=== PATIENT | female | born 1965 | race Caucasian/White ===

== ENCOUNTER 2020-08-24 12:09 | Outpatient (REF) | payer OTHER, SELFPAY ==
[2020-08-24 14:40] LABS: Alanine Aminotransferase 10 U/L (0-31); Anion Gap 16 (12-20); Aspartate Amino Transferase 18 U/L (5-31); Blood Urea Nitrogen 16 mg/dL (9-16); Calcium 9.2 mg/dL (8.4-10.2); Carbon Dioxide 26 mmol/L (22-29); Chloride 106 mmol/L (96-108); Cholesterol 225 mg/dL; Estimated Glomerular Filt Rate > 60; Glucose Fasting 96 mg/dL (60-99); HDL Cholesterol 61 mg/dL; LDL Cholesterol Calculated 140 mg/dl; Potassium 5.1 mmol/L (3.3-5.1); Sodium 143 mmol/L (135-145); Triglycerides 124 mg/dL
[2020-08-24 15:04] LABS: Free T4 (Free Thyroxine) 0.83 ng/dL (0.71-1.85); Thyroid Stimulating Hormone 3.09 uIU/mL (0.32-4.0); Vitamin D 25-OH Total 33.9 ng/mL (>30)
[2020-08-25 05:22] LABS: Thyroid Peroxidase Antibodies 470 IU/mL (<9)
== END 2020-08-24 12:10 | disposition home or self-care (01) ==
LOC: HO.HMGCLDS 12:09
PROVIDERS: PCP Internal Medicine; Visit Provider Internal Medicine
DX: I10 Essential (primary) hypertension (principal); E55.9 Vitamin D deficiency, unspecified; E78.5 Hyperlipidemia, unspecified; E03.9 Hypothyroidism, unspecified
CPT/HCPCS: 36415; 80048; 80061; 82306; 84439; 84443; 84450; 84460; 86376

== ENCOUNTER 2021-02-07 13:04 | Outpatient (REF) | payer OTHER, SELFPAY ==
[2021-02-07 14:33] LABS: Cholesterol 193 mg/dL; HDL Cholesterol 57 mg/dL; LDL Cholesterol Calculated 109 mg/dl; Triglycerides 137 mg/dL
[2021-02-07 14:40] LABS: Free T4 (Free Thyroxine) 0.86 ng/dL (0.71-1.85); Thyroid Stimulating Hormone 2.79 uIU/mL (0.32-4.0)
== END 2021-02-07 13:05 | disposition home or self-care (01) ==
LOC: HO.HMGCLDS 13:04
PROVIDERS: PCP Internal Medicine; Visit Provider Internal Medicine
DX: E03.8 Other specified hypothyroidism (principal); E06.3 Autoimmune thyroiditis; E78.5 Hyperlipidemia, unspecified
CPT/HCPCS: 36415; 80061; 84439; 84443

== ENCOUNTER 2021-08-25 13:50 | Outpatient (REF) | payer OTHER, SELFPAY ==
[2021-08-25 16:44] LABS: Alanine Aminotransferase 11 U/L (0-31); Aspartate Amino Transferase 17 U/L (5-31); Cholesterol 191 mg/dL; HDL Cholesterol 50 mg/dL; LDL Cholesterol Calculated 115 mg/dl; Triglycerides 134 mg/dL
[2021-08-25 17:05] LABS: Free T4 (Free Thyroxine) 0.78 ng/dL (0.71-1.85); Thyroid Stimulating Hormone 3.39 uIU/mL (0.32-4.0)
== END 2021-08-25 13:51 | disposition home or self-care (01) ==
LOC: HO.HMGCLDS 13:50
PROVIDERS: Visit Provider Internal Medicine
DX: E03.8 Other specified hypothyroidism (principal); E06.3 Autoimmune thyroiditis; E78.5 Hyperlipidemia, unspecified; E03.9 Hypothyroidism, unspecified
CPT/HCPCS: 36415; 80061; 84439; 84443; 84450; 84460

== ENCOUNTER → 2021-10-04 12:50 | Outpatient (BNVA) | payer OTHER, SELFPAY | PROVIDERS: PCP Internal Medicine; Visit Provider Advanced Practice Midwife | DX: Z01.419 Encounter for gynecological examination (general) (routine) without abnormal findings (principal) ==

== ENCOUNTER → 2022-01-08 14:28 | Outpatient (BNVA) | payer OTHER, SELFPAY | PROVIDERS: PCP Internal Medicine; Visit Provider Nurse Practitioner Family | DX: Z01.818 Encounter for other preprocedural examination (principal); K58.1 Irritable bowel syndrome with constipation; K21.9 Gastro-esophageal reflux disease without esophagitis | CPT/HCPCS: 99202 ==

== ENCOUNTER 2022-03-15 10:36 | Outpatient (REF) | payer OTHER, SELFPAY ==
[2022-03-15 15:02] LABS: MANUAL DIFF FLAG NO
[2022-03-15 15:09] LABS: Basophils Percent Auto 0.2 % (0-2); Eosinophils Absolute Auto 0.1 X10*3/uL (0.0-0.4); Eosinophils Percent Auto 1.9 % (0-4); Hematocrit 37.6 % (37.0-47.0); Hemoglobin 12.2 g/dl (12.0-16.0); Imm Gran Abs Auto 0.02 X10*3/uL (0.00-0.03); Imm Gran Pct Auto 0.4 % (0.0-0.4); Lymphocytes Absolute Auto 1.4 X10*3/uL (1.2-4.9); Lymphocytes Percent Auto 26.4 % (20-40); Mean Corpuscular HGB Conc 32.4 g/dl (31.0-35.0); Mean Corpuscular Hemoglobin 27.2 pg (27.0-33.0); Mean Corpuscular Volume 83.9 fL (80.0-98.0); Mean Platelet Volume 9.9 fL (9.4-12.3); Monocytes Absolute Auto 0.6 X10*3/uL (0.1-1.2); Monocytes Percent Auto 10.7 % (2-11); Neutrophils Absolute Auto 3.2 x10*3/uL (2.0-8.3); Neutrophils Percent Auto 60.4 % (45-73); Platelet Count 301 X10*3/uL (160-400); Red Blood Count 4.48 X10*6/uL (4.20-5.50); White Blood Count 5.4 X10*3/uL (4.8-10.8)
[2022-03-15 15:24] LABS: Alanine Aminotransferase 13 U/L (0-31); Anion Gap 14 (12-20); Aspartate Amino Transferase 39 U/L (5-31); Blood Urea Nitrogen 10 mg/dL (9-16); Calcium 9.1 mg/dL (8.4-10.2); Carbon Dioxide 29 mmol/L (22-29); Chloride 106 mmol/L (96-108); Cholesterol 153 mg/dL; Estimated Glomerular Filt Rate > 60; Glucose Fasting 96 mg/dL (60-99); HDL Cholesterol 44 mg/dL; LDL Cholesterol Calculated 92 mg/dl; Potassium 5.2 mmol/L (3.3-5.1); Sodium 144 mmol/L (135-145); Triglycerides 86 mg/dL
[2022-03-15 15:47] LABS: Free T4 (Free Thyroxine) 0.92 ng/dL (0.71-1.85); Thyroid Stimulating Hormone 3.38 uIU/mL (0.32-4.0); Vitamin D 25-OH Total 50.2 ng/mL (>30)
== END 2022-03-15 10:37 | disposition home or self-care (01) ==
LOC: HO.HMGCLDS 10:36
PROVIDERS: PCP Internal Medicine; Visit Provider Internal Medicine
DX: E03.9 Hypothyroidism, unspecified (principal); E78.5 Hyperlipidemia, unspecified; E55.9 Vitamin D deficiency, unspecified; E03.8 Other specified hypothyroidism; E06.3 Autoimmune thyroiditis; I10 Essential (primary) hypertension; K58.1 Irritable bowel syndrome with constipation
CPT/HCPCS: 36415; 80048; 80061; 82306; 84439; 84443; 84450; 84460; 85025

== ENCOUNTER 2022-10-03 12:12 | Outpatient (AMB) | payer OTHER, SELFPAY ==
--- NOTE | 2022-10-03 12:25 | MHC.PC.OV ---
Vital Signs 10/03/22 12:28 Weight 170 lb BP 132/98 H Blood Pressure Location Lt brachial Position Sitting Pulse 86 Pulse Source Pulse Oximeter Pulse Oximetry (%) 96 Oxygen Delivery Method Room Air Intake Visit Reasons: PE Intake Note: Pt is here today for her PE Allergies lisinopril Adverse Reaction (Unknown, Verified 02/06/23 00:47) cough Medication List - Last Reconciled 10/03/22 by Awilda Vilchis MD atorvastatin 10 mg PO DAILY baclofen 10 mg PO DAILY PRN bisacodyl (Dulcolax (bisacodyl)) 10 mg (2 x 5 mg) PO ONCE 1 day cholecalciferol (vitamin D3) 50 mcg PO BEDTIME dicyclomine 20 mg PO BID docusate sodium 100 mg PO BID PRN fluoxetine 40 mg PO QAM gabapentin 100 - 200 mg PO BID PRN ipratropium bromide 2 sprays intranasal BID-TID PRN levocetirizine 5 mg PO DAILY PRN levothyroxine 25 mcg PO QAM meclizine 25 mg PO TID PRN naproxen 500 mg PO BID omeprazole 20 mg PO QAM polyethylene glycol 3350 (Miralax) 238 grams PO ONCE prazosin 2 mg PO BID quetiapine 200 mg PO BEDTIME sertraline 100 mg PO QAM Tobacco use date assessed: 10/03/22 [facility] Medical History Anxiety and depression Arthralgia of multiple joints Cervicalgia Chronic GERD Chronic low back pain Discolored nails Dyslipidemia Essential hypertension External hemorrhoid 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 Brother No problems noted. Brother No problems noted. Brother No problems noted. Sister No problems noted. Sister No problems noted. Sister No problems noted. Son No problems noted. Daughter No problems noted. Daughter No problems noted. Daughter No problems noted. Social History Housing: Apartment Alcohol intake: never Patient Tobacco Use Status: Never used Tobacco e-Cigarette/Vaping Use: Never Used Second Hand Smoke Exposure: No service: No Current occupational status: unemployed Cognitive needs: No Hearing needs: No Vision needs: No Questionnaire Thrive Questionnaire Date Thrive assessed: 08/28/21 AUDIT C Alcohol Use Questionnaire (AUDIT-C) 1. How often do you have a drink containing alcohol?: Never Total Score: 0 CARLY-7 AMB Questionnaire CARLY-7 Date CARLY - 7 assessed: 08/28/21 Source: Developed by Drs. Conner Flores, Naya Beasley, Abebe Martinez and colleagues, with an educational jamia from [employer]. Physical exam (Primary Care) Vital Signs: Last Vital Signs Pulse 86 10/03/22 12:28 BP 132/98 H 10/03/22 12:28 Pulse Ox 96 10/03/22 12:28 Oxygen Delivery Method Room Air 10/03/22 12:28 Tobacco/Smoking Status: Tobacco use Status Tobacco use date assessed 10/03/22 10/03/22 12:53 Patient Tobacco Use Status Never used Tobacco 10/03/22 12:53 e-Cigarette/Vaping Use Never Used 10/03/22 12:53 PHQ-9: PHQ-9 Score PHQ-9: Total score 15 02/06/23 00:51 Thrive Assessment: Date of Thrive Assessment Date Thrive assessed 10/03/22 10/03/22 12:53 Assessment and Plan Assessment & Plan (1) Chronic GERD: Code(s): K21.9 - Gastro-esophageal reflux disease without esophagitis (2) Dyslipidemia: Code(s): E78.5 - Hyperlipidemia, unspecified (3) 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: Code(s): E03.8 - Other specified hypothyroidism; E06.3 - Autoimmune thyroiditis (4) Essential hypertension: Code(s): I10 - Essential (primary) hypertension Orders: Orders Alanine Aminotransferase 10/03/22 K21.9 - Gastro-esophageal reflux disease without esophagitis, E78.5 - Hyperlipidemia, unspecified, E03.8 - Other specified hypothyroidism, E06.3 - Autoimmune thyroiditis, I10 - Essential (primary) hypertension, Z00.01 - Encounter for general adult medical examination with abnormal findings Aspartate Amino Transferase 10/03/22 K21.9 - Gastro-esophageal reflux disease without esophagitis, E78.5 - Hyperlipidemia, unspecified, E03.8 - Other specified hypothyroidism, E06.3 - Autoimmune thyroiditis, I10 - Essential (primary) hypertension, Z00.01 - Encounter for general adult medical examination with abnormal findings Basic Metabolic Panel Fasting 10/03/22 K21.9 - Gastro-esophageal reflux disease without esophagitis, E78.5 - Hyperlipidemia, unspecified, E03.8 - Other specified hypothyroidism, E06.3 - Autoimmune thyroiditis, I10 - Essential (primary) hypertension, Z00.01 - Encounter for general adult medical examination with abnormal findings Lipid Panel 10/03/22 K21.9 - Gastro-esophageal reflux disease without esophagitis, E78.5 - Hyperlipidemia, unspecified, E03.8 - Other specified hypothyroidism, E06.3 - Autoimmune thyroiditis, I10 - Essential (primary) hypertension, Z00.01 - Encounter for general adult medical examination with abnormal findings Free T4 (Free Thyroxine) 10/03/22 E03.9 - Hypothyroidism, unspecified, K21.9 - Gastro-esophageal reflux disease without esophagitis, E78.5 - Hyperlipidemia, unspecified, E03.8 - Other specified hypothyroidism, E06.3 - Autoimmune thyroiditis, I10 - Essential (primary) hypertension, Z00.01 - Encounter for general adult medical examination with abnormal findings Thyroid Stimulating Hormone 10/03/22 K21.9 - Gastro-esophageal reflux disease without esophagitis, E78.5 - Hyperlipidemia, unspecified, E03.8 - Other specified hypothyroidism, E06.3 - Autoimmune thyroiditis, I10 - Essential (primary) hypertension, Z00.01 - Encounter for general adult medical examination with abnormal findings Vitamin D 25-OH Total 10/03/22 K21.9 - Gastro-esophageal reflux disease without esophagitis, E78.5 - Hyperlipidemia, unspecified, E03.8 - Other specified hypothyroidism, E06.3 - Autoimmune thyroiditis, I10 - Essential (primary) hypertension, Z00.01 - Encounter for general adult medical examination with abnormal findings Coding Diagnoses Chronic GERD K21.9 Dyslipidemia E78.5 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
[2022-10-03 12:28] VITALS: BP 132/98; PULSE 86; O2SAT 96
--- NOTE | 2022-10-03 12:51 | A.OFFPC_ITS ---
Vital Signs 10/03/22 12:28 Weight 170 lb BP 132/98 H Blood Pressure Location Lt brachial Position Sitting Pulse 86 Pulse Source Pulse Oximeter Pulse Oximetry (%) 96 Oxygen Delivery Method Room Air Intake Visit Reasons: PE Intake Note: Pt is here today for her PE Allergies lisinopril Adverse Reaction (Unknown, Verified 02/06/23 00:47) cough Medication List - Last Reconciled 10/03/22 by Awilda Vilchis MD atorvastatin 10 mg PO DAILY baclofen 10 mg PO DAILY PRN bisacodyl (Dulcolax (bisacodyl)) 10 mg (2 x 5 mg) PO ONCE 1 day cholecalciferol (vitamin D3) 50 mcg PO BEDTIME dicyclomine 20 mg PO BID docusate sodium 100 mg PO BID PRN fluoxetine 40 mg PO QAM gabapentin 100 - 200 mg PO BID PRN ipratropium bromide 2 sprays intranasal BID-TID PRN levocetirizine 5 mg PO DAILY PRN levothyroxine 25 mcg PO QAM meclizine 25 mg PO TID PRN naproxen 500 mg PO BID omeprazole 20 mg PO QAM polyethylene glycol 3350 (Miralax) 238 grams PO ONCE prazosin 2 mg PO BID quetiapine 200 mg PO BEDTIME sertraline 100 mg PO QAM Tobacco use date assessed: 10/03/22 HPI PE HPI Details 57-year-old lady with dyslipidemia, IBS, has anxiety depression, Alexandr's thyroidism with hypothyroidism, hypertension, chronic GERD and arthralgia, here today for physical exam. 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 Brother No problems noted. Brother No problems noted. Brother No problems noted. Sister No problems noted. Sister No problems noted. Sister No problems noted. Son No problems noted. Daughter No problems noted. Daughter No problems noted. Daughter No problems noted. Social History Housing: Apartment Alcohol intake: never Patient Tobacco Use Status: Never used Tobacco e-Cigarette/Vaping Use: Never Used Second Hand Smoke Exposure: No service: No Current occupational status: unemployed Cognitive needs: No Hearing needs: No Vision needs: No Questionnaire PHQ-9 Over the last 2 weeks, how often have you been bothered by any of the following problems? 1. Little interest or pleasure in doing things: nearly every day 2. Feeling down, depressed, or hopeless: more than half the days 3. Trouble falling or staying asleep, or sleeping too much: more than half the days 4. Feeling tired or having little energy: nearly every day 5. Poor appetite or overeating: more than half the days 6. Feeling bad about yourself - or that you are a failure or have let yourself or your family down: not at all 7. Trouble concentrating on things, such as reading the newspaper or watching television: more than half the days 8. Moving or speaking so slowly that other people could have noticed. Or the opposite - being so fidgety or restless that you have been moving around a lot more than usual: several days 9. Thoughts that you would be better off or of hurting yourself in some way: not at all Total score: 15 Depression Screening Interpretation: Positive Depression Screening Follow-up: Existing condition and In treatment 63891 - PHQ-9 Billing: Yes Source: Developed by Drs. Conner Flores, Naya Beasley, Abebe Martinez and colleagues, with an educational jamia from [employer]. Thrive Questionnaire Declines Thrive assessment: No Date Thrive assessed: 10/03/22 I am a: Patient What is your living situation today?: I have a steady place to live Within the past 12 months, did the food you bought not last and you didn't have the money to get more?: Never true Within the past 12 months, did you worry whether your food would run out before you got money to buy more?: Never true Do you have trouble paying for medicines?: No Do you have trouble getting transportation to medical appointments?: No Do you have trouble paying your heating and electricity bill?: No Do you have trouble taking care of your child, family member or friend?: No Do you have trouble with day-to-day activities such as bathing, preparing meals, shopping, managing finances, etc.?: No Are you currently unemployed and looking for a job?: No Are you interested in more education?: No AUDIT C Alcohol Use Questionnaire (AUDIT-C) 1. How often do you have a drink containing alcohol?: Never Total Score: 0 CARLY-7 AMB Questionnaire CARLY-7 Date CARLY - 7 assessed: 10/03/22 Feeling nervous, anxious, or on edge: 0 = Not at all Not being able to stop or control worryin = Several days Worrying too much about different things: 0 = Not at all Trouble relaxin = Several days Being so restless that it is hard to sit still: 0 = Not at all Becoming easily annoyed or irritable: 1 = Several days Feeling afraid as if something awful might happen: 1 = Several days Total CARLY-7 score (0-4 normal; 5-9 mild; 10-14 moderate; 15-21 severe): 4 Source: Developed by Drs. Conner Flores, Naya Beasley, Abebe Martinez and colleagues, with an educational jamia from [employer]. CARLY-7 Assessment Billing CARLY-7 Assessment Tool: CARLY-7 Assessment 45096 Review of Systems Const Reports difficulty sleeping, Denies fatigue and Denies headache(s) Eyes Denies change in vision ENT Denies dysphagia, Denies headache(s) and Denies odynophagia Card Denies chest pain, Denies irregular heart rhythm, Denies lightheadedness and Denies dyspnea Resp Reports no additional complaints, Denies dyspnea and Denies wheezing GI Denies abdominal pain, Denies belching, Denies melena, Denies bloating, Denies change in bowel habits, Denies dysphagia, Reports heartburn, Denies loose stools, Denies nausea, Denies odynophagia and Denies vomiting Reports no additional complaints Musc Reports myalgias (recurrent), Reports arthralgias and Reports stiffness Skin/Breast Denies breast swelling, Denies breast pain, Denies breast mass, Denies lesions and Denies rash Neuro Reports no additional complaints and Denies headache(s) Psych Reports no additional complaints Endo Reports no additional complaints and Denies fatigue Ramiro/Lymph Denies easy bleeding and Denies easy bruising Aller/Immun Denies seasonal rhinorrhea and Denies wheezing Physical exam (Primary Care) Vital Signs: Last Vital Signs Pulse 86 10/03/22 12:28 BP 132/98 H 10/03/22 12:28 Pulse Ox 96 10/03/22 12:28 Oxygen Delivery Method Room Air 10/03/22 12:28 Tobacco/Smoking Status: Tobacco use Status Tobacco use date assessed 10/03/22 10/03/22 12:53 Patient Tobacco Use Status Never used Tobacco 10/03/22 12:53 e-Cigarette/Vaping Use Never Used 10/03/22 12:53 PHQ-9: PHQ-9 Score PHQ-9: Total score 15 10/03/22 13:16 Depression Screening Interpretation: Positive Depression Screening Follow-up: Existing condition and In treatment Thrive Assessment: Date of Thrive Assessment Date Thrive assessed 10/03/22 10/03/22 12:53 Const Other: Alert oriented x3, no acute distress noted, ambulatory with normal gait Orientation/consciousness: patient oriented x3 HENMT Head: Yes normocephalic Ears: TM's normal bilaterally and EAC's normal General nose exam: Normal external nose present Face and sinus: Yes face symmetric Mouth: Normal oral and palatal mucosa present and moist mucous membranes Eyes General: appearance normal, both eyes and all related structures Neck Other: Supple, no lymphadenopathy palpated, no thyromegaly or tenderness on palpation of thyroid gland Chest Breast/axilla palpation: normal palpation of the breasts Resp Auscultation: clear to auscultation bilaterally Cardio Other: S1-S2 present regular rate and rhythm GI Palpation (GI): Soft to palpation, nontender, no guarding and no masses Auscultation: normal bowel sounds General: Yes no CVA tenderness and Yes deferred ([facility] O[facility]YN routine Pap smear, pelvic exam) Back/Spine/Pelvis Back: no CVA tenderness and No back tenderness Skin General skin exam: no rashes or lesions noted Neuro General: patient oriented x3, gait normal, tone normal, moves all extremities, Normal light touch and pain sensation, no focal motor deficits and CN's II-XI intact bilaterally Extrem General: Yes full ROM, Yes no joint enlargement, Yes no pedal edema, Yes no calf tenderness and Yes normal gait Psych Appearance: grossly normal and well kempt Mental Status: mental status grossly normal Speech and movement: Normal speech and movement present Affect: normal affect Attitude: cooperative Assessment and Plan Assessment & Plan (1) Annual visit for general adult medical examination with abnormal findings: Code(s): Z00.01 - Encounter for general adult medical examination with abnormal findings Plan: Will check appropriate labs. Recommended dental visit every 6 months and regular eye exams, at least every 2 years. Take adequate calcium in diet and vitamin-D 3 at 2000 IU per cap once a day, in addition to weight-bearing exercises to help maintain good muscle tone and weight control. Instructed to do self-breast exam, and continue to get yearly mammogram, currently up-to-date and done at [facility]. She is also up-to-date with her cervical cancer screening, goes to [facility] reminded to get her COVID booster and yearly flu shot but patient declined, up-to-date with Tdap,. Referred for colonoscopy screening [place] [facility] [place], still waiting for appointment for her colonoscopy procedure. (2) Chronic GERD: Code(s): K21.9 - Gastro-esophageal reflux disease without esophagitis Plan: Currently controlled on omeprazole 20 mg daily, and avoidance of triggers for heartburn (3) Dyslipidemia: Code(s): E78.5 - Hyperlipidemia, unspecified Plan: Fasting lipid panel ordered. 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 In the meantime continue with levothyroxine 25 mcg daily in a.m. an hour before breakfast (5) Essential hypertension: Code(s): I10 - Essential (primary) hypertension Plan: Blood pressure goal of less than 130/80. Continue with current medication. Reinforced importance of following a low sodium diet, getting regular exercise, and lowering stress levels. Orders: Orders Alanine Aminotransferase 10/03/22 K21.9 - Gastro-esophageal reflux disease without esophagitis, E78.5 - Hyperlipidemia, unspecified, E03.8 - Other specifi ed hypothyroidism, E06.3 - Autoimmune thyroiditis, I10 - Essential (primary) hypertension, Z00.01 - Encounter for general adult medical examination with abnormal findings Aspartate Amino Transferase 10/03/22 K21.9 - Gastro-esophageal reflux disease without esophagitis, E78.5 - Hyperlipidemia, unspecified, E03.8 - Other specified hypothyroidism, E06.3 - Autoimmune thyroiditis, I10 - Essential (primary) hypertension, Z00.01 - Encounter for general adult medical examination with abnormal findings Basic Metabolic Panel Fasting 10/03/22 K21.9 - Gastro-esophageal reflux disease without esophagitis, E78.5 - Hyperlipidemia, unspecified, E03.8 - Other specified hypothyroidism, E06.3 - Autoimmune thyroiditis, I10 - Essential (primary) hypertension, Z00.01 - Encounter for general adult medical examination with abnormal findings Lipid Panel 10/03/22 K21.9 - Gastro-esophageal reflux disease without esophagitis, E78.5 - Hyperlipidemia, unspecified, E03.8 - Other specified hypothyroidism, E06.3 - Autoimmune thyroiditis, I10 - Essential (primary) hypertension, Z00.01 - Encounter for general adult medical examination with abnormal findings Free T4 (Free Thyroxine) 10/03/22 E03.9 - Hypothyroidism, unspecified, K21.9 - Gastro-esophageal reflux disease without esophagitis, E78.5 - Hyperlipidemia, unspecified, E03.8 - Other specified hypothyroidism, E06.3 - Autoimmune thyroiditis, I10 - Essential (primary) hypertension, Z00.01 - Encounter for general adult medical examination with abnormal findings Thyroid Stimulating Hormone 10/03/22 K21.9 - Gastro-esophageal reflux disease without esophagitis, E78.5 - Hyperlipidemia, unspecified, E03.8 - Other specified hypothyroidism, E06.3 - Autoimmune thyroiditis, I10 - Essential (primary) hypertension, Z00.01 - Encounter for general adult medical examination with abnormal findings Vitamin D 25-OH Total 10/03/22 K21.9 - Gastro-esophageal reflux disease without esophagitis, E78.5 - Hyperlipidemia, unspecified, E03.8 - Other specified hypothyroidism, E06.3 - Autoimmune thyroiditis, I10 - Essential (primary) hypertension, Z00.01 - Encounter for general adult medical examination with abnormal findings Coding Level of Care Code Est Pt Prev Care 40-64y([id number]) Diagnoses Annual visit for general adult medical examination with abnormal findings Z00.01 Chronic GERD K21.9 Dyslipidemia E78.5 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
== END 2022-10-03 14:26 | disposition home or self-care (01) ==
LOC: HO.HMGC 12:12
PROVIDERS: PCP Internal Medicine; Visit Provider Internal Medicine
DX: Z00.00 Encounter for general adult medical examination without abnormal findings (principal); K21.9 Gastro-esophageal reflux disease without esophagitis; E03.8 Other specified hypothyroidism; E06.3 Autoimmune thyroiditis; I10 Essential (primary) hypertension; E78.5 Hyperlipidemia, unspecified
CPT/HCPCS: 99396

== ENCOUNTER 2022-10-03 13:24 | Outpatient (REF) | payer OTHER, SELFPAY ==
[2022-10-03 17:07] LABS: Alanine Aminotransferase 9 U/L (0-31); Anion Gap 12 (12-20); Aspartate Amino Transferase 19 U/L (5-31); Blood Urea Nitrogen 13 mg/dL (9-16); Calcium 9.5 mg/dL (8.4-10.2); Carbon Dioxide 28 mmol/L (22-29); Chloride 108 mmol/L (96-108); Cholesterol 218 mg/dL; Estimated Glomerular Filt Rate > 60; Glucose Fasting 88 mg/dL (60-99); HDL Cholesterol 59 mg/dL; LDL Cholesterol Calculated 137 mg/dl; Sodium 143 mmol/L (135-145); Triglycerides 112 mg/dL
[2022-10-03 17:25] LABS: Free T4 (Free Thyroxine) 0.79 ng/dL (0.71-1.85); Thyroid Stimulating Hormone 3.21 uIU/mL (0.32-4.0); Vitamin D 25-OH Total 60.1 ng/mL (>30)
== END 2022-10-03 13:25 | disposition home or self-care (01) ==
LOC: HO.HMGCLDS 13:24
PROVIDERS: PCP Internal Medicine; Visit Provider Internal Medicine
DX: Z00.01 Encounter for general adult medical examination with abnormal findings (principal); E03.9 Hypothyroidism, unspecified; K21.9 Gastro-esophageal reflux disease without esophagitis; E03.8 Other specified hypothyroidism; E06.3 Autoimmune thyroiditis; E78.5 Hyperlipidemia, unspecified; I10 Essential (primary) hypertension
CPT/HCPCS: 36415; 80048; 80061; 82306; 84439; 84443; 84450; 84460

== ENCOUNTER 2022-11-15 14:25 | Outpatient (REF) | payer OTHER, SELFPAY ==
[2022-11-16 00:58] LABS: CT PCR NOT DETECTED (Not Detect.); NG PCR NOT DETECTED (Not Detect.)
[2022-11-20 07:43] LABS: HPV mRNA E6/E7 rflx Not Detected (Not Detected)
== END 2022-11-15 14:26 | disposition home or self-care (01) ==
LOC: HO.LNP 14:25
PROVIDERS: PCP Internal Medicine; Visit Provider Advanced Practice Midwife
DX: Z01.419 Encounter for gynecological examination (general) (routine) without abnormal findings (principal); Z11.51 Encounter for screening for human papillomavirus (HPV)
CPT/HCPCS: 0353U; 87624; 88142

== ENCOUNTER 2022-11-26 12:39 | Outpatient (REF) | payer OTHER, SELFPAY ==
--- NOTE | ~2022-11-26 | US_ITS ---
EXAMINATION: US PELVIS CLINICAL INFORMATION: Leiomyoma. COMPARISON: None available. TECHNIQUE: Ultrasound of the pelvis is performed using both only transabdominal transducers along with Doppler. Patient refused endovaginal scan. This study is extremely limited because of the lack of endovaginal images. FINDINGS: UTERUS: The uterus is anteverted and measures 7.6 x 4.0 x 5.5 cm for a volume of 87 mL. The double wall endometrial thickness is 5 mm. The uterus is smooth in contour and has normal myometrial echogenicity. Two uterine fibroids are seen, both near the fundus, measuring about 1.2 cm on the right and 1.9 cm on the left. ADNEXA: The left ovary could not be seen. The right ovary measures 2.5 x 1.3 x 1.5 cm for a volume of 2.5 mL and appears unremarkable. No free fluid present in the cul-de-sac. US/US pelvic complete IMPRESSION: Limited exam but there appear to be 2 small uterine fibroids present. The left ovary could not be seen.
== END 2022-11-26 12:40 | disposition home or self-care (01) ==
LOC: HO.HMGCX 12:39
PROVIDERS: PCP Internal Medicine; Visit Provider Advanced Practice Midwife
DX: D21.9 Benign neoplasm of connective and other soft tissue, unspecified (principal)
CPT/HCPCS: 76856

== ENCOUNTER 2022-12-21 15:01 | Outpatient (AMB) | payer OTHER, SELFPAY ==
[2022-12-21 15:14] VITALS: BP 128/80; BMI 29.2
--- NOTE | 2022-12-21 15:14 | MHC.OFFVIS ---
Intake Vital Signs 12/21/22 15:14 Height 5 ft 4 in Weight 170 lb BMI 29.2 BP 128/80 Intake Visit Reasons: US follow up/60 min Intake Note: The patient agreed to use of a medical record retrieval specialist during this encounter. Scribed for TREVER Doss by Jessica Ramon, medical record retrieval specialist, on 12/21/2022 at 3:32 pm EST. Interactive Marketing Strategist Required: Yes Interactive Marketing Strategist Language: Yi Interactive Marketing Strategist Name: Cynthia [id number] Accompanied by: Daughter Allergies lisinopril Adverse Reaction (Unknown, Verified 12/21/22 15:14) cough Is last menstrual period known: No Post menopausal: Yes HPI HPI Comments History of Present Illness Details She is here with her daughter Reham to discuss US results due to a history of fibroids. Reports when she was in [place] the provider reported it was 2 cm. Admits to occasional vaginal burning, no dysuria. 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 Brother No problems noted. Brother No problems noted. Brother No problems noted. Sister No problems noted. Sister No problems noted. Sister No problems noted. Son No problems noted. Daughter No problems noted. Daughter No problems noted. Daughter No problems noted. Social History Housing: Apartment Alcohol intake: never Patient Tobacco Use Status: Never used Tobacco e-Cigarette/Vaping Use: Never Used Second Hand Smoke Exposure: No service: No Current occupational status: unemployed Cognitive needs: No Hearing needs: No Vision needs: No Female Reproductive History Menstrual Age of Menarche: 14 Total pregnancies: 5 Full term: 4 Number of Living Children: 4 Ab spontaneous: 1 Date of last pap smear: 11/16/22 (negative) Date of Mammogram: 11/20/22 Physical Exam Vital Signs: Last Vital Signs BP 128/80 12/21/22 15:14 BMI result Body Mass Index 29.2 Const General: cooperative, healthy appearing, comfortable, no acute distress, well developed, alert and awake Results Reviewed Results Reviewed: EXAMINATION:? US PELVIS CLINICAL INFORMATION:? Leiomyoma. COMPARISON: None available. TECHNIQUE: Ultrasound of the pelvis is performed using both only transabdominal transducers along with Doppler. Patient refused endovaginal scan. This study is extremely limited because of the lack of endovaginal images. FINDINGS: UTERUS: The uterus is anteverted and measures 7.6 x 4.0 x 5.5 cm for a volume of 87 mL. The double wall endometrial thickness is 5 mm.? The uterus is smooth in contour and has normal myometrial echogenicity. Two uterine fibroids are seen, both near the fundus, measuring about 1.2 cm on the right and 1.9 cm on the left. ADNEXA: The left ovary could not be seen. The right ovary measures 2.5 x 1.3 x 1.5 cm for a volume of 2.5 mL and appears unremarkable. No free fluid present in the cul-de-sac. US/US pelvic complete IMPRESSION: Limited exam but there appear to be 2 small uterine fibroids present. The left ovary could not be seen. ? Laboratory Tests 11/15/22 14:25 Chlam trachomat DNA PCR NOT DETECTED N.gonorrhoeae DNA (PCR) NOT DETECTED Assessment & Plan Assessment & Plan (1) Encounter to discuss test results: Code(s): Z71.2 - Person consulting for explanation of examination or test findings Plan: Discussed: US findings of: Limited exam but there appear to be 2 small uterine fibroids present. The left ovary could not be seen. Leiomyoma: common pelvic neoplasm. Differential diagnosis-may include leiomyosarcoma which is a rare uterine sarcoma 3-7/100,000, difficult to distinguish from fibroids on ultrasound from uterine sarcoma's. Unlikely any single test will have a highly positive predictive value. Hysterectomy is not recommended for sole purpose of excluding malignant neoplasm. Report any PMB, pelvic pressure, bloating, or pain. Skin care: Advised to clean with mild soaps such as gentle baby soap to the area, dry well and wear cotton underwear. All of her questions and concerns were addressed to the best of my ability and shared decision making. She is agreeable to plan of care. RTO for AG. (2) Uterine fibroid: Code(s): D25.9 - Leiomyoma of uterus, unspecified (3) Vaginal burning: Code(s): N94.9 - Unspecified condition associated with female genital organs and menstrual cycle Coding Level of Care Code Est Pt Level 3 (24105) Diagnoses Encounter to discuss test results Z71.2 Uterine fibroid D25.9 Vaginal burning N94.9
== END 2022-12-21 15:47 | disposition home or self-care (01) ==
LOC: HO.HWS 15:01
PROVIDERS: PCP Internal Medicine; Visit Provider Advanced Practice Midwife
DX: Z71.2 Person consulting for explanation of examination or test findings (principal); D25.9 Leiomyoma of uterus, unspecified; N94.9 Unspecified condition associated with female genital organs and menstrual cycle
CPT/HCPCS: 99213

== ENCOUNTER → 2022-12-21 15:01 | Outpatient (BNVA) | payer OTHER, SELFPAY | PROVIDERS: PCP Internal Medicine; Visit Provider Advanced Practice Midwife | DX: Z71.2 Person consulting for explanation of examination or test findings (principal); N94.9 Unspecified condition associated with female genital organs and menstrual cycle; D25.9 Leiomyoma of uterus, unspecified | CPT/HCPCS: 99212 ==

== ENCOUNTER 2023-05-10 11:31 | Outpatient (REF) | payer OTHER, SELFPAY ==
[2023-05-10 14:26] LABS: Alanine Aminotransferase 9 U/L (0-31); Aspartate Amino Transferase 16 U/L (5-31); Cholesterol 173 mg/dL (<200); HDL Cholesterol 50 mg/dL (>40); LDL Cholesterol Calculated 104 mg/dL (<100); Triglycerides 95 mg/dL (<150)
[2023-05-10 15:12] LABS: Free T4 (Free Thyroxine) 0.74 ng/dL (0.71-1.85); Thyroid Stimulating Hormone 2.82 uIU/mL (0.32-4.0)
== END 2023-05-10 11:32 | disposition home or self-care (01) ==
LOC: HO.HMGCLDS 11:31
PROVIDERS: PCP Internal Medicine; Visit Provider Internal Medicine
DX: E03.8 Other specified hypothyroidism (principal); E78.5 Hyperlipidemia, unspecified; E06.3 Autoimmune thyroiditis
CPT/HCPCS: 36415; 80061; 84439; 84443; 84450; 84460

== ENCOUNTER 2023-05-14 11:48 | Outpatient (AMB) | payer OTHER, SELFPAY ==
--- NOTE | 2023-05-14 12:34 | A.OFFPC_ITS ---
Vital Signs 05/14/23 12:38 Height 5 ft 4 in Weight 178 lb 8 oz BMI 30.6 BP 140/88 H Blood Pressure Location Lt brachial Position Sitting Pulse 95 Pulse Source Pulse Oximeter Pulse Oximetry (%) 97 Oxygen Delivery Method Room Air Intake Visit Reasons: follow up Intake Note: Pt is here to follow up for lab results Allergies lisinopril Adverse Reaction (Unknown, Verified 05/14/23 12:51) cough Medication List - Last Reconciled 05/14/23 by Awilda Vilchis MD atorvastatin 10 mg PO DAILY baclofen 10 mg PO DAILY PRN bisacodyl (Dulcolax (bisacodyl)) 10 mg (2 x 5 mg) PO ONCE 1 day cholecalciferol (vitamin D3) 50 mcg PO BEDTIME dicyclomine 20 mg PO BID docusate sodium 100 mg PO BID PRN fluoxetine 40 mg PO QAM gabapentin 100 - 200 mg PO BID PRN ipratropium bromide 2 sprays intranasal BID-TID PRN levocetirizine 5 mg PO DAILY PRN levothyroxine 25 mcg PO QAM omeprazole 20 mg PO QAM polyethylene glycol 3350 (Miralax) 238 grams PO ONCE prazosin 2 mg PO BID Tobacco use date assessed: 05/14/23 Dental Screening Dental Screen Date: 05/14/23 Did you have a dental visit in the last 12 months?: Yes Did you have a dental problem in the last 6 months where you did not have access to dental care?: No Was dental information given to patient?: Patient has dentist HPI follow up HPI Details 57-year-old lady here today for follow-u p on her lipids and hypothyroidism. Currently on atorvastatin 10 mg taken once a day and levothyroxine 25 mcg taken once a day in a.m.. Has been compliant with diet, but does not get any regular exercise. Recent fasting labs showed thyroid levels are within normal limits as well as lipids are also within normal limit. Planes of intermittent episodes of fast heartbeat but not accompanied by any shortness of breath or lightheadedness or chest pain. 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 Brother No problems noted. Brother No problems noted. Brother No problems noted. Sister No problems noted. Sister No problems noted. Sister No problems noted. Son No problems noted. Daughter No problems noted. Daughter No problems noted. Daughter No problems noted. Social History Housing: Apartment Alcohol intake: never Patient Tobacco Use Status: Never used Tobacco e-Cigarette/Vaping Use: Never Used Second Hand Smoke Exposure: No service: No Current occupational status: unemployed Cognitive needs: No Hearing needs: No Vision needs: No Female Reproductive History Menstrual Age of Menarche: 14 Questionnaire Thrive Questionnaire Date Thrive assessed: 10/03/22 CARLY-7 AMB Questionnaire CARLY-7 Date CARLY - 7 assessed: 10/03/22 Source: Developed by Drs. Conner Flores, Naya Beasley, Abebe Martinez and colleagues, with an educational jamia from [employer]. Review of Systems Const Denies fatigue and Denies headache(s) Eyes Denies change in vision ENT Denies dysphagia, Denies headache(s) and Denies odynophagia Card Reports as per HPI, Denies chest pain, Denies irregular heart rhythm, Denies lightheadedness and Denies dyspnea Resp Reports no additional complaints, Denies dyspnea and Denies wheezing GI Denies abdominal pain, Denies belching, Denies melena, Denies bloating, Denies change in bowel habits, Denies dysphagia, Reports heartburn, Denies loose stools, Denies nausea, Denies odynophagia and Denies vomiting Reports no additional complaints Musc Reports arthralgias and Reports stiffness Neuro Reports no additional complaints and Denies headache(s) Endo Reports no additional complaints and Denies fatigue Aller/Immun Denies seasonal rhinorrhea and Denies wheezing Physical exam (Primary Care) Vital Signs: Last Vital Signs Pulse 103 H 05/14/23 12:38 BP 140/88 H 05/14/23 12:38 Pulse Ox 97 05/14/23 12:38 Oxygen Delivery Method Room Air 05/14/23 12:38 BMI result Body Mass Index 30.6 Tobacco/Smoking Status: Tobacco use Status Tobacco use date assessed 05/14/23 05/14/23 12:47 Patient Tobacco Use Status Never used Tobacco 05/14/23 12:35 e-Cigarette/Vaping Use Never Used 05/14/23 12:35 Thrive Assessment: Date of Thrive Assessment Date Thrive assessed 10/03/22 05/14/23 12:35 Const Other: Alert oriented x3, no acute distress noted, ambulatory with normal gait Orientation/consciousness: patient oriented x3 HENMT Head: Yes normocephalic Ears: TM's normal bilaterally and EAC's normal General nose exam: Normal external nose present Face and sinus: Yes face symmetric Mouth: Normal oral and palatal mucosa present and moist mucous membranes Eyes General: appearance normal, both eyes and all related structures Neck Other: Supple, no lymphadenopathy palpated, no thyromegaly or tenderness on palpation of thyroid gland Resp Auscultation: clear to auscultation bilaterally Cardio Other: S1-S2 present regular rate and rhythm GI Palpation (GI): Soft to palpation, nontender, no guarding and no masses Auscultation: normal bowel sounds Back/Spine/Pelvis Back: No back tenderness Skin General skin exam: no rashes or lesions noted Neuro General: patient oriented x3, gait normal, tone normal, moves all extremities, Normal light touch and pain sensation, no focal motor deficits and CN's II-XI intact bilaterally Extrem General: Yes full ROM, Yes no joint enlargement, Yes no pedal edema, Yes no calf tenderness and Yes normal gait Psych Appearance: grossly normal and well kempt Mental Status: mental status grossly normal Speech and movement: Normal speech and movement present Affect: normal affect Attitude: cooperative Results Reviewed Results Reviewed: Name: Pili Mcdaniels Age/Sex: 57/F : 1965 Unit#: [id number] Attend Dr: Awilda Vilchis MD Re05/10/23 Status: DEP REF Location: [facility] [address] Disch: SPEC : [id number] TOBIN: 05/10/23 STATUS: COMP REQ : [id number] RECD: 05/10/[address] [facility] [address]: Awilda Vilchis MD COMP: 05/10/23 ENTERED: 05/10/23 [facility] DR: ORDERED: AST, ALT, Lipid Panel, Free T4, TSH Test Result Flag Reference Site AST (GOT) 16 5-31 U/L ALT (GPT) 9 0-31 U/L Triglyceride 95 <150 mg/dL Desirable Triglyceride: less than 150 mg/dL Borderline High Triglyceride 150-199 mg/dL High Triglyceride: 200-499 mg/dL Very High Triglyceride: greater than or equal to 5OO mg/dL Cholesterol 173 <200 mg/dL Desirable Cholesterol: less than 200 mg/dL Borderline High Cholesterol: 200-239 mg/dL High Cholesterol: greater than 239 mg/dL LDL Calculated 104 H <100 mg/dL Desirable LDL: less than 100 mg/dL Near Optimal/Above Optimal LDL: 110-129 mg/dL Borderline High LDL: 130-159 mg/dL High LDL: 160-189 mg/dL Very High LDL: greater than or equal to 190 mg/dL HDL 50 >40 mg/dL Desirable HDL: greater than 40 mg/dL Note: This HDL assay may give artificially low results in patients with liver disease. Free T4 0.74 0.71-1.85 ng/dL TSH 3rd Gen. 2.82 0.32-4.0 uIU/mL Note: A sustained TSH level above 2.5 uIU/mL may warrant further investigation. TSH 3rd Generation ([facility]) Assessment and Plan Assessment & Plan (1) Intermittent palpitations: Code(s): R00.2 - Palpitations Plan: Reviewed recent fasting labs with patient with normal thyroid levels. EKG done today showed normal sinus rhythm with no acute ST-T changes seen. Will check CBC and repeat thyroid levels again in 4 months. (2) Dyslipidemia: Code(s): E78.5 - Hyperlipidemia, unspecified Plan: Reviewed recent fasting lipid profile with patient with levels within normal . Continue with atorvastatin 10 mg daily , in addition to adherence to low- cholesterol diet and regular exercise, at least 30 minutes 3 to 4 times a week. Advised patient to make healthy food choices, eat more fruits, vegetables, whole grains, wild caught fish and low-fat dairy. Limit amount of meat and fried or fatty food products, as well as processed foods and fast foods. Follow-up scheduled with repeat fasting lipid panel in 4 months. (3) Essential hypertension: Code(s): I10 - Essential (primary) hypertension Plan: Systolic blood pressure mildly elevated on this visit, Blood pressure goal less than 130/80. Reinforced importance of following a low sodium diet, getting regular exercise, and lowering stress levels. 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: Code(s): E03.8 - Other specified hypothyroidism; E06.3 - Autoimmune thyroiditis Plan: Thyroid levels within normal limits, continue with current dose of levothyroxine recheck everything again in 4 months Orders: Orders AMB EKG-In Office 05/14/23 R00.2 - Palpitations Lipid Panel 4 Months E78.5 - Hyperlipidemia, unspecified, I10 - Essential (primary) hypertension, Z86.39 - Personal history of other endocrine, nutritional and metabolic disease, R00.2 - Palpitations Basic Metabolic Panel Fasting 4 Months E78.5 - Hyperlipidemia, unspecified, I10 - Essential (primary) hypertension, Z86.39 - Personal history of other endocrine, nutritional and metabolic disease, R00.2 - Palpitations Complete Blood Count Auto Diff 4 Months E78.5 - Hyperlipidemia, unspecified, I10 - Essential (primary) hypertension, Z86.39 - Personal history of other endocrine, nutritional and metabolic disease, R00.2 - Palpitations Vitamin D 25-OH Total 4 Months E78.5 - Hyperlipidemia, unspecified, I10 - Essential (primary) hypertension, Z86.39 - Personal history of other endocrine, nutritional and metabolic disease, R00.2 - Palpitations Thyroid Stimulating Hormone 4 Months E03.8 - Other specified hypothyroidism, E06.3 - Autoimmune thyroiditis Free T4 (Free Thyroxine) 4 Months E03.9 - Hypothyroidism, unspecified, E03.8 - Other specified hypothyroidism, E06.3 - Autoimmune thyroiditis Aspartate Amino Transferase 4 Months E78.5 - Hyperlipidemia, unspecified, I10 - Essential (primary) hypertension, Z86.39 - Personal history of other endocrine, nutritional and metabolic disease, R00.2 - Palpitations Alanine Aminotransferase 4 Months E78.5 - Hyperlipidemia, unspecified, I10 - Essential (primary) hypertension, Z86.39 - Personal history of other endocrine, nutritional and metabolic disease, R00.2 - Palpitations Medications: Changed From ipratropium bromide 2 sprays intranasal BID-TID PRN 30 mL 5RF for allergies To ipratropium bromide 2 sprays intranasal BID-TID PRN 30 mL 5RF for allergies Refilled dicyclomine 20 mg PO BID 180 tabs 4RF Coding Level of Care Code Est Pt Level 4 (61140) Diagnoses Intermittent palpitations R00.2 Dyslipidemia E78.5 Essential hypertension I10 History of vitamin D deficiency Z86.39 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
[2023-05-14 12:38] VITALS: BP 140/88; PULSE 95; O2SAT 97; BMI 30.6
== END 2023-05-14 14:06 | disposition home or self-care (01) ==
PROVIDERS: PCP Internal Medicine; Visit Provider Internal Medicine
DX: R00.2 Palpitations (principal); E78.5 Hyperlipidemia, unspecified; I10 Essential (primary) hypertension; Z86.39 Personal history of other endocrine, nutritional and metabolic disease; E03.8 Other specified hypothyroidism; E06.3 Autoimmune thyroiditis
CPT/HCPCS: 99214

== ENCOUNTER 2023-10-09 11:25 | Outpatient (REF) | payer OTHER, SELFPAY ==
[2023-10-09 13:15] LABS: MANUAL DIFF FLAG NO
[2023-10-09 13:37] LABS: Basophils Percent Auto 0.7 % (0-2); Eosinophils Absolute Auto 0.1 X10*3/uL (0.0-0.4); Hematocrit 39.9 % (37.0-47.0); Hemoglobin 12.6 g/dl (12.0-16.0); Imm Gran Abs Auto 0.01 X10*3/uL (0.00-0.03); Imm Gran Pct Auto 0.2 % (0.0-0.4); Lymphocytes Absolute Auto 1.1 X10*3/uL (1.2-4.9); Lymphocytes Percent Auto 24.5 % (20-40); Mean Corpuscular HGB Conc 31.6 g/dl (31.0-35.0); Mean Corpuscular Hemoglobin 26.9 pg (27.0-33.0); Mean Corpuscular Volume 85.1 fL (80.0-98.0); Mean Platelet Volume 9.8 fL (9.4-12.3); Monocytes Absolute Auto 0.6 X10*3/uL (0.1-1.2); Monocytes Percent Auto 13.2 % (2-11); Neutrophils Absolute Auto 2.6 x10*3/uL (2.0-8.3); Neutrophils Percent Auto 58.4 % (45-73); Platelet Count 292 X10*3/uL (160-400); Red Blood Count 4.69 X10*6/uL (4.20-5.50); Red Cell Distribution Width 13.8 % (11.0-16.0); White Blood Count 4.4 X10*3/uL (4.8-10.8)
[2023-10-09 13:55] LABS: Alanine Aminotransferase 9 U/L (0-31); Anion Gap 13 (12-20); Aspartate Amino Transferase 17 U/L (5-31); Blood Urea Nitrogen 9 mg/dL (9-16); Calcium 9.4 mg/dL (8.4-10.2); Carbon Dioxide 26 mmol/L (22-29); Chloride 107 mmol/L (96-108); Cholesterol 166 mg/dL (<200); Estimated Glomerular Filt Rate > 60; Glucose Fasting 98 mg/dL (60-99); HDL Cholesterol 46 mg/dL (>40); LDL Cholesterol Calculated 101 mg/dL (<100); Potassium 4.8 mmol/L (3.3-5.1); Sodium 141 mmol/L (135-145); Triglycerides 96 mg/dL (<150)
[2023-10-09 13:58] LABS: Free T4 (Free Thyroxine) 0.81 ng/dL (0.71-1.85); Thyroid Stimulating Hormone 2.31 uIU/mL (0.32-4.0); Vitamin D 25-OH Total 44.9 ng/mL (>30)
== END 2023-10-09 11:26 | disposition home or self-care (01) ==
LOC: HO.HMGCLDS 11:25
PROVIDERS: PCP Internal Medicine; Visit Provider Internal Medicine
DX: E78.5 Hyperlipidemia, unspecified (principal); I10 Essential (primary) hypertension; R00.2 Palpitations; E03.8 Other specified hypothyroidism; E06.3 Autoimmune thyroiditis; Z86.39 Personal history of other endocrine, nutritional and metabolic disease
CPT/HCPCS: 36415; 80048; 80061; 82306; 84439; 84443; 84450; 84460; 85025

== ENCOUNTER 2023-10-11 09:32 | Outpatient (AMB) | payer OTHER, SELFPAY ==
[2023-10-11 09:37] VITALS: BP 126/80; PULSE 90; O2SAT 98; BMI 29.5
--- NOTE | 2023-10-11 09:37 | MHC.PC.OV ---
Vital Signs 10/11/23 09:37 Height 5 ft 4 in Weight 172 lb BMI 29.5 BP 126/80 Blood Pressure Location Lt brachial Position Sitting Pulse 90 Pulse Source Pulse Oximeter Pulse Oximetry (%) 98 Oxygen Delivery Method Room Air Intake Visit Reasons: Annual PE Intake Note: Pt is here today for her PE: Last mammogram 11/20/22, papsmear 11/16/22: Pt states never had a colonoscopy Allergies lisinopril Adverse Reaction (Unknown, Verified 10/11/23 09:52) cough Medication List - Last Reconciled 10/11/23 by Awilda Vilchis MD atorvastatin 10 mg PO DAILY baclofen 10 mg PO DAILY PRN bisacodyl (Dulcolax (bisacodyl)) 10 mg (2 x 5 mg) PO ONCE 1 day cholecalciferol (vitamin D3) 5,000 mcg PO BEDTIME dicyclomine 20 mg PO BID docusate sodium 100 mg PO BID PRN fluoxetine 40 mg PO QAM gabapentin 100 - 200 mg PO BID PRN ipratropium bromide 2 sprays intranasal BID-TID PRN levocetirizine 5 mg PO DAILY PRN levothyroxine 25 mcg PO QAM omeprazole 20 mg PO QAM prazosin 2 mg PO BID Tobacco use date assessed: 10/11/23 Dental Screening Dental Screen Date: 10/11/23 Did you have a dental visit in the last 12 months?: Yes Did you have a dental problem in the last 6 months where you did not have access to dental care?: No Was dental information given to patient?: Patient has dentist HPI Annual PE HPI Details 58-year-old lady with hypertension, hyperlipidemia, hypothyroidism seasonal allergies, chronic GERD and IBS, here today for physical exam. She is up-to-date with her screening mammogram, last done 11/20/22, up-to-date with her cervical cancer screening with papsmear 11/16/22. She is due for colon cancer screening, but does not want to get a colonoscopy procedure.. She had recent fasting labs which showed normal hemoglobin/hematocrit, normal electrolytes, renal function, fasting glucose, lipid levels vitamin-D and thyroid levels.. Requesting a refill on her dicyclomine which she takes once a day usually, has been helping controlling her abdominal bloating and bowel movements. Complains of upper back strain and recurrent rash under both breasts. She has been taking [id number] Tylenol and arthritis cream to upper back which affords only temporary relief. 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 Brother No problems noted. Brother No problems noted. Brother No problems noted. Sister No problems noted. Sister No problems noted. Sister No problems noted. Son No problems noted. Daughter No problems noted. Daughter No problems noted. Daughter No problems noted. Social History Housing: Apartment Alcohol intake: never Patient Tobacco Use Status: Never used Tobacco e-Cigarette/Vaping Use: Never Used Second Hand Smoke Exposure: No service: No Current occupational status: unemployed Cognitive needs: No Hearing needs: No Vision needs: No Female Reproductive History Menstrual Age of Menarche: 14 Questionnaire PHQ-9 Over the last 2 weeks, how often have you been bothered by any of the following problems? 1. Little interest or pleasure in doing things: several days 2. Feeling down, depressed, or hopeless: several days 3. Trouble falling or staying asleep, or sleeping too much: several days 4. Feeling tired or having little energy: several days 5. Poor appetite or overeating: not at all 6. Feeling bad about yourself - or that you are a failure or have let yourself or your family down: not at all 7. Trouble concentrating on things, such as reading the newspaper or watching television: not at all 8. Moving or speaking so slowly that other people could have noticed. Or the opposite - being so fidgety or restless that you have been moving around a lot more than usual: not at all 9. Thoughts that you would be better off or of hurting yourself in some way: not at all Total score: 4 Depression Screening Interpretation: Positive (Currently followed by psychiatry) Depression Screening Follow-up: Existing condition, In treatment and Community Mental Health Worker F/U Depression Screening Done: Yes 95622 - PHQ-9 Billing: Yes Source: Developed by Drs. Conner Flores, Naya Beasley, Abebe Martinez and colleagues, with an educational jamia from [employer]. Thrive Questionnaire Date Thrive assessed: 10/11/23 I am a: Patient What is your living situation today?: I have a steady place to live Within the past 12 months, did the food you bought not last and you didn't have the money to get more?: Never true Within the past 12 months, did you worry whether your food would run out before you got money to buy more?: Never true Do you have trouble paying for medicines?: No Do you have trouble getting transportation to medical appointments?: No Do you have trouble paying your heating and electricity bill?: No Do you have trouble taking care of your child, family member or friend?: No Do you have trouble with day-to-day activities such as bathing, preparing meals, shopping, managing finances, etc.?: No Are you currently unemployed and looking for a job?: No Are you interested in more education?: No THRIVE Score: 0 AUDIT C Alcohol Use Questionnaire (AUDIT-C) 1. How often do you have a drink containing alcohol?: Never Total Score: 0 CARLY-7 AMB Questionnaire CARLY-7 Date CARLY - 7 assessed: 10/11/23 Feeling nervous, anxious, or on edge: 1 = Several days Not being able to stop or control worryin = Not at all Worrying too much about different things: 1 = Several days Trouble relaxin = Several days Being so restless that it is hard to sit still: 0 = Not at all Becoming easily annoyed or irritable: 0 = Not at all Feeling afraid as if something awful might happen: 1 = Several days Total CARLY-7 score (0-4 normal; 5-9 mild; 10-14 moderate; 15-21 severe): 4 Source: Developed by Drs. Conner Flores, Naya Beasley, Abebe Martinez and colleagues, with an educational jamia from [employer]. CARLY-7 Assessment Billing CARLY-7 Assessment Tool: CARLY-7 Assessment 51051 Review of Systems Const Denies fatigue and Denies headache(s) Eyes Denies change in vision ENT Denies dysphagia and Denies headache(s) Card Denies chest pain, Denies irregular heart rhythm and Denies lightheadedness Resp Reports no additional complaints GI Denies abdominal pain, Denies belching, Denies melena, Denies bloating, Denies change in bowel habits, Denies dysphagia and Reports heartburn Reports no additional complaints Musc Reports as per HPI, Reports arthralgias and Reports stiffness Skin/Breast Reports as per HPI Neuro Reports no additional complaints and Denies headache(s) Psych Reports no additional complaints Endo Reports no additional complaints and Denies fatigue Ramiro/Lymph Reports no additional complaints Aller/Immun Denies seasonal rhinorrhea Physical exam (Primary Care) Vital Signs: Last Vital Signs Pulse 90 10/11/23 09:37 BP 126/80 10/11/23 09:37 Pulse Ox 98 10/11/23 09:37 Oxygen Delivery Method Room Air 10/11/23 09:37 BMI result Body Mass Index 29.5 Tobacco/Smoking Status: Tobacco use Status Tobacco use date assessed 10/11/23 10/11/23 09:47 Patient Tobacco Use Status Never used Tobacco 10/11/23 09:47 e-Cigarette/Vaping Use Never Used 10/11/23 09:47 PHQ-9: PHQ-9 Score PHQ-9: Total score 4 10/14/23 04:00 Depression Screening Interpretation: Positive (Currently followed by psychiatry) Depression Screening Follow-up: Existing condition, In treatment and Community Mental Health Worker F/U Thrive Assessment: Date of Thrive Assessment Date Thrive assessed 10/11/23 10/11/23 10:33 Const Other: Alert oriented x3, no acute distress noted, ambulatory with normal gait, accompanied by daughter who helps translate HENMT Head: Yes normocephalic Ears: TM's normal bilaterally and EAC's normal General nose exam: Normal external nose present Face and sinus: Yes face symmetric Mouth: Normal oral and palatal mucosa present and moist mucous membranes Eyes General: appearance normal, both eyes and all related structures Neck Other: Supple, no lymphadenopathy palpated, no thyromegaly or tenderness on palpation of thyroid gland Chest Chest palpation & inspection: normal inspection of the chest and normal palpation of entire chest wall Breast/axilla inspection: normal inspection of the breasts Breast/axilla palpation: normal palpation of the breasts and normal palpation of the axillae Resp Auscultation: clear to auscultation bilaterally Cardio Other: S1-S2 present regular rate and rhythm GI Palpation (GI): Soft to palpation, nontender, no guarding and no masses Auscultation: normal bowel sounds General: Yes deferred (Up-to-date with her cervical cancer screening, goes to her own OBGYN) Back/Spine/Pelvis Other: Tenderness on palpation over both trapezius and interscapular area Skin General skin exam: no rashes or lesions noted Neuro General: gait normal, tone normal, moves all extremities, Normal light touch and pain sensation, no focal motor deficits and CN's II-XI intact bilaterally Extrem General: Yes full ROM, Yes no joint enlargement, Yes no pedal edema, Yes no calf tenderness and Yes normal gait Psych Appearance: grossly normal and well kempt Mental Status: mental status grossly normal Speech and movement: Normal speech and movement present Affect: normal affect Attitude: cooperative Results Reviewed Results Reviewed: Name: Pili Mcdaniels Age/Sex: 58/F : 1965 Unit#: [id number] Attend Dr: Awilda Vilchis MD Re10/09/23 Status: DEP REF Location: [facility] Disch: SPEC : [id number] TOBIN: 10/09/23 STATUS: COMP REQ : [id number] RECD: 10/09/[address]: Awilda Vilchis MD COMP: 10/09/23 ENTERED: 10/09/[address] [facility] [address]: ORDERED: CBC Auto Diff Test Result Flag Reference WBC 4.4 L 4.8-10.8 X10*3/uL RBC 4.69 4.20-5.50 X10*6/uL HGB 12.6 12.0-16.0 g/dl HCT 39.9 37.0-47.0 % MCV 85.1 80.0-98.0 fL MCH 26.9 L 27.0-33.0 pg MCHC 31.6 31.0-35.0 g/dl RDW 13.8 11.0-16.0 % PLT 292 160-400 X10*3/uL MPV 9.8 9.4-12.3 fL Neut Pct Auto 58.4 45-73 % ImGran Pct Auto 0.2 0.0-0.4 % Lymp Pct Auto 24.5 20-40 % [place] Pct Auto 13.2 H 2-11 % Eos Pct Auto 3.0 0-4 % Baso Pct Auto 0.7 0-2 % NRBC Pct Auto 0.0 0.0-0.2 /100WBC ANC Neut Abs # 2.6 2.0-8.3 x10*3/uL ImGran Abs Auto 0.01 0.00-0.03 X10*3/uL Lymph Abs Auto 1.1 L 1.2-4.9 X10*3/uL [place] Abs Auto 0.6 0.1-1.2 X10*3/uL Eos Abs Auto 0.1 0.0-0.4 X10*3/uL Baso Abs Auto 0.0 0.0-0.2 X10*3/uL NRBC Abs Auto 0.000 0.0-0.012 X10*3/uL Name: Pili Mcdaniels Age/Sex: 58/F : 1965 Unit#: [id number] Attend Dr: Awilda Vilchis MD Re10/09/23 Status: DEP REF Location: [facility] Disch: SPEC : [id number] TOBIN: 10/09/23 STATUS: COMP REQ : [id number] RECD: 10/09/23-[address]: Awilda Vilchis MD COMP: 10/09/23-1357 ENTERED: 10/09/23-[address]: ORDERED: Met Prof Fast, AST, ALT, Lipid Panel, Vitamin D 25-OH, Free T4, TSH Test Result Flag Reference Sodium 141 135-145 mmol/L Potassium 4.8 3.3-5.1 mmol/L CL 107 96-108 mmol/L CO2 26 22-29 mmol/L Gap 13 12-20 BUN 9 9-16 mg/dL Creat 0.80 0.5-1.4 mg/dL EGFR > 60 NOTE: For -[place]onegas[place] individuals, multiply the result by 1.210. Chronic Kidney Disease: Estimated GFR < 60 mL/min/1.73m2 Severe Kidney Disease: Estimated GFR < 15 mL/min/1.73m2 FBS 98 60-99 mg/dL CA 9.4 8.4-10.2 mg/dL AST (GOT) 17 5-31 U/L ALT (GPT) 9 0-31 U/L Triglyceride 96 <150 mg/dL Desirable Triglyceride: less than 150 mg/dL Borderline High Triglyceride 150-199 mg/dL High Triglyceride: 200-499 mg/dL Very High Triglyceride: greater than or equal to 5OO mg/dL Cholesterol 166 <200 mg/dL Desirable Cholesterol: less than 200 mg/dL Borderline High Cholesterol: 200-239 mg/dL High Cholesterol: greater than 239 mg/dL LDL Calculated 101 H <100 mg/dL Desirable LDL: less than 100 mg/dL Near Optimal/Above Optimal LDL: 110-129 mg/dL Borderline High LDL: 130-159 mg/dL High LDL: 160-189 mg/dL Very High LDL: greater than or equal to 190 mg/dL HDL 46 >40 mg/dL Desirable HDL: greater than 40 mg/dL Note: This HDL assay may give artificially low results in patients with liver disease. Vit D 25-OH Tot 44.9 >30 ng/mL Health Based Reference Values* < 20 ng/mL Deficient 20-30 ng/mL Insufficient > 30 ng/mL Sufficient *Milo MELLO. N Engl J Med. 2007;357:266-280 Care must be taken in interpreting Vitamin D results from different laboratories and methodologies. Published data demonstrated that results from patients undergoing hemodialysis may show a negative bias when tested with various automated 25-OH vitamin D assays when compared to LC-MS/MS. When testing samples from patients whose predominant form of Vitamin D is Vitamin D2, such as patients receiving Vitamin D2 supplementation, results that are subtherapeutic should be confirmed with another method such as LC-MS/MS. Free T4 0.81 0.71-1.85 ng/dL TSH 3rd Gen. 2.31 0.32-4.0 uIU/mL Assessment and Plan Assessment & Plan (1) Annual visit for general adult medical examination with abnormal findings: Code(s): Z00.01 - Encounter for general adult medical examination with abnormal findings Plan: Reviewed recent fasting lab results with patient. Recommended dental visit every 6 months and regular eye exams, at least every 2 years. Take adequate calcium in diet and vitamin-D 3 at 2000 IU per cap once a day, in addition to weight-bearing exercises to help maintain good muscle tone and weight control. Instructed to do self-breast exam, and recommended to get yearly mammogram, referral ordered. Currently sees OBGYN, up-to-date with her cervical cancer screening. Cologuard test ordered. She has had 2 COVID vaccine but does not want to get further vaccination, declines flu shot, up-to-date with her Tdap last given in 2018 but does not want to get any other vaccines including the shingles vaccine. 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 an hour before breakfast (3) Dyslipidemia: Code(s): E78.5 - Hyperlipidemia, unspecified Plan: Reviewed recent fasting lipid profile with patient with levels within normal limit . Continue atorvastatin 10 mg daily , in addition to adherence to low-cholesterol diet and regular exercise, at least 30 minutes 3 to 4 times a week. Advised patient to make healthy food choices, eat more fruits, vegetables, whole grains, wild caught fish and low-fat dairy. Limit amount of meat and fried or fatty food products, as well as processed foods and fast foods. Follow-up scheduled with repeat fasting lipid panel in 6 months. (4) Upper back pain, chronic: Code(s): M54.9 - Dorsalgia, unspecified; G89.29 - Other chronic pain Plan: Patient large breasted, has tried conservative measures for her upper back and lower back pain including physical therapy which has not been very helpful. Referred to Dr. Wanda Jones for evaluation for breast reduction surgery (5) Chronic GERD: Code(s): K21.9 - Gastro-esophageal reflux disease without esophagitis Plan: Stable controlled on omeprazole 20 mg taken once a day (6) Cervicalgia: Comment: Seen by Dr. Melissa Gupta Code(s): M54.2 - Cervicalgia Plan: Currently on physical therapy, but no permanent improvement seen, will refer to Dr. Wanda Jones to see patient is a candidate for breast reduction surgery, letter sent (7) Anxiety and depression: Comment: Currently being followed by Psychiatry and sees a therapist regularly Code(s): F41.9 - Anxiety disorder, unspecified; F32.9 - Major depressive disorder, single episode, unspecified Plan: Currently followed by psychiatry, stable and controlled on prazosin and fluoxetine (8) Irritable bowel syndrome with constipation: Code(s): K58.1 - Irritable bowel syndrome with constipation Plan: Continue with dicyclomine which has been helping control her bowel movements. Refills (9) Essential hypertension: Code(s): I10 - Essential (primary) hypertension Plan: Blood pressure at goal of less than 130/80. Reinforced importance of following a low sodium diet, getting regular exercise, and lowering stress levels. Orders: Orders Alanine Aminotransferase 04/03/24 E03.8 - Other specified hypothyroidism, E06.3 - Autoimmune thyroiditis, E78.5 - Hyperlipidemia, unspecified Aspartate Amino Transferase 04/03/24 E03.8 - Other specified hypothyroidism, E06.3 - Autoimmune thyroiditis, E78.5 - Hyperlipidemia, unspecified Vitamin D 25-OH Total 04/03/24 E03.8 - Other specified hypothyroidism, E06.3 - Autoimmune thyroiditis, E78.5 - Hyperlipidemia, unspecified Thyroid Stimulating Hormone 04/03/24 E03.8 - Other specified hypothyroidism, E06.3 - Autoimmune thyroiditis, E78.5 - Hyperlipidemia, unspecified Lipid Panel 04/03/24 E03.8 - Other specified hypothyroidism, E06.3 - Autoimmune thyroiditis, E78.5 - Hyperlipidemia, unspecified Free T4 (Free Thyroxine) 04/03/24 E03.8 - Other specified hypothyroidism, E06.3 - Autoimmune thyroiditis, E78.5 - Hyperlipidemia, unspecified Referrals Cologuard Test Z12.11 - Encounter for screening for malignant neoplasm of colon, Z12.12 - Encounter for screening for malignant neoplasm of rectum Breast Surgery Referral G89.29 - Other chronic pain, L30.4 - Erythema intertrigo, M54.9 - Dorsalgia, unspecified Medications: Refilled dicyclomine 20 mg PO BID 180 tabs 4RF Coding Level of Care Code Est Pt Prev Care 40-64y(15289) Diagnoses Annual visit for general adult medical examination with abnormal findings Z00.01 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
== END 2023-10-11 10:23 | disposition home or self-care (01) ==
PROVIDERS: PCP Internal Medicine; Visit Provider Internal Medicine
DX: Z00.00 Encounter for general adult medical examination without abnormal findings (principal); E03.8 Other specified hypothyroidism; E06.3 Autoimmune thyroiditis; E78.5 Hyperlipidemia, unspecified; M54.9 Dorsalgia, unspecified; G89.29 Other chronic pain; K21.9 Gastro-esophageal reflux disease without esophagitis; M54.2 Cervicalgia; F41.9 Anxiety disorder, unspecified; F32.9 Major depressive disorder, single episode, unspecified; K58.1 Irritable bowel syndrome with constipation; I10 Essential (primary) hypertension
CPT/HCPCS: 99396

== ENCOUNTER 2024-01-31 14:37 | Outpatient (AMB) | payer OTHER, SELFPAY ==
--- NOTE | 2024-01-31 14:38 | A.OFFVIS_ITS ---
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 Presents with her daughter Reham. She is doing well with concerns: not able to hold urine to make it to the bathr oom, and stress incontinence. Attempting to eat a healthy diet with calcium and vitamin D and stays active. Currently not sexually active w/. Denies any vaginal dryness or irritation. Last pap smear; 2022. Last mammogram; 2023. [employer] completed patient requests discussion re: results. Denies any family history of breast, ovarian or colon cancer. 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 Brother No problems noted. Brother No problems noted. Brother No problems noted. Sister No problems noted. Sister No problems noted. Sister No problems noted. Son No problems noted. Daughter No problems noted. Daughter No problems noted. Daughter No problems noted. Social History Housing: Apartment Alcohol intake: never Patient Tobacco Use Status: Never used Tobacco e-Cigarette/Vaping Use: Never Used Second Hand Smoke Exposure: No service: No Current occupational status: unemployed Cognitive needs: No Hearing needs: No Vision needs: No Female Reproductive History Menstrual Age of Menarche: 14 Total pregnancies: 5 Full term: 4 Number of Living Children: 4 Ab spontaneous: 1 Date of last pap smear: 11/15/22 (neg pap and hpv) Date of Mammogram: 01/09/24 (Birad 1) Review of Systems Const All systems reviewed & are unremarkable except as noted in HPI and below Reports as per HPI Eyes Reports no additional complaints ENT Reports no additional complaints Card Reports no additional complaints Resp Reports no additional complaints GI Reports as per HPI and Reports no additional complaints Reports as per HPI Musc Reports no additional complaints Skin/Breast Reports as per HPI Neuro Reports no additional complaints Psych Reports no additional complaints Endo Reports no additional complaints Ramiro/Lymph Reports no additional complaints Aller/Immun Reports no additional complaints Physical Exam Vital Signs: Last Vital Signs BP 122/84 01/31/24 14:40 BMI result Body Mass Index 29.3 Const General: cooperative, healthy appearing, no acute distress, well developed and alert Orientation/consciousness: patient oriented x3 HEENT Head: Yes normal to inspection Eyes General: appearance normal, both eyes and all related structures Neck Neck: Yes normal visual inspection Thyroid: Thyroid normal Chest Chest palpation & inspection: normal inspection of the chest and other (no puckering, dimpling, peau de orange, retraction, discharge, masses) Breast/axilla inspection: normal inspection of the breasts Breast/axilla palpation: normal palpation of the breasts Resp Effort & Inspection: normal respiratory effort GI Inspection: Yes normal to inspection Palpation (GI): Soft to palpation Rectal Exam - Female: deferred General: Yes bladder normal to palpation External Female Exam: normal external appearance and normal appearance of the urethra Speculum Exam - Vagina: normal appearance of the vagina, normal palpation and normal vaginal discharge Speculum Exam - Cervix: normal appearance of the cervix and normal palpation Bimanual exam- vagina & uterus: normal bimanual exam, normal palpation, uterine size normal, bladder normal to palpation, normal palpation and non-tender Bimanual Exam- Adnexa, other: no masses Skin General skin exam: no rashes or lesions noted Rashes: no rashes Neuro General: patient oriented x3 Cognition (Neuro): normal cognition Extrem General: Yes normal to inspection Psych Attitude: cooperative Thought process: Normal thought process present Assessment & Plan Assessment & Plan (1) Encounter for well woman exam with routine gynecological exam: Code(s): Z01.419 - Encounter for gynecological examination (general) (routine) without abnormal findings Category: Medical (2) Fibroids: Code(s): D21.9 - Benign neoplasm of connective and other soft tissue, unspecified Category: Medical (3) Urge and stress incontinence: Code(s): N39.46 - Mixed incontinence Category: Medical Plan Discussed: Counseled re: Leiomyoma: common pelvic neoplasm. Differential diagnosis-may include but not limited to- leiomyosarcoma which is a rare uterine sarcoma 3- 7/100,000, difficult to distinguish from fibroids on ultrasound from uterine sarcoma's. Unlikely any single test will have a highly positive predictive value. Hysterectomy is not recommended for sole purpose of excluding malignant neoplasm. Consult for surgical exploration, medical treatment, other treatments, verses expectant management, pros and cons, risks and benefits. Follow up appointment for ultrasound results to be scheduled. Expectant management follow up yearly for stability. Report any PMB. Pelvic pressure, bloating, or pain. Referral to MD if indicated for level of care if indicated. Current recommendations for pap smears per ASCCP guidelines. Breast awareness, periodic self breast exams and yearly mammogram. Maintain a healthy lifestyle, well balanced diet including Calcium 1,200 mg and Vitamin D 600 IU daily, and routine exercise. Contact the office with any postmenopausal bleeding. Referral to urology due to incontinence placed. Cologuard results positive, recommendations for scheduling colonoscopy advised, referral has been placed by her primary care department. Patient to be notified from staff for scheduling appointment. Patient was upset and tearful review of information including false positive and negative testing, screening test is not diagnostic, additional evaluation is needed through the colonoscopy process. Advised the colonoscopy is the gold standard for colon cancer screening. Patient verbalizes understanding and agrees to the plan of care. She was given opportunity to ask questions and all questions were answered to the best of my ability. 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 This note is constructed using voice recognition software. While every effort has been made to ensure accuracy, plant engineering supervisor errors may have been included. Orders: Orders US pelvic and transvaginal Today D21.9 - Benign neoplasm of connective and other soft tissue, unspecified Referrals Urology Referral N39.46 - Mixed incontinence Coding Level of Care Code Est Pt Prev Care 40-64y(06110) Diagnoses Encounter for well woman exam with routine gynecological exam Z01.419 Fibroids D21.9 Urge and stress incontinence N39.46
[2024-01-31 14:40] VITALS: BP 122/84; BMI 29.3
== END 2024-01-31 15:31 | disposition home or self-care (01) ==
PROVIDERS: PCP Internal Medicine; Visit Provider Advanced Practice Midwife
DX: Z01.419 Encounter for gynecological examination (general) (routine) without abnormal findings (principal); D21.9 Benign neoplasm of connective and other soft tissue, unspecified; N39.46 Mixed incontinence
CPT/HCPCS: 99396

== ENCOUNTER → 2024-01-31 14:37 | Outpatient (BNVA) | payer OTHER, SELFPAY | PROVIDERS: PCP Internal Medicine; Visit Provider Advanced Practice Midwife | DX: Z01.419 Encounter for gynecological examination (general) (routine) without abnormal findings (principal); D21.9 Benign neoplasm of connective and other soft tissue, unspecified; N39.46 Mixed incontinence | CPT/HCPCS: 99396 ==

== ENCOUNTER 2024-02-10 13:06 | Outpatient (REF) | payer OTHER, SELFPAY ==
--- NOTE | ~2024-02-10 | US_ITS ---
EXAMINATION: US PELVIS COMPLETE US PELVIS ENDOVAGINAL CLINICAL INFORMATION: D21.9 - Benign neoplasm of connective and other soft tissue, unspecified COMPARISON: Ultrasound pelvis from 11/26/2022 TECHNIQUE: Transabdominal and transvaginal images of the pelvis were obtained. FINDINGS: UTERUS: Anteverted. Normal size and contour, measuring 6.8 x 4.0 x 5.2 cm (cervix to fundus x AP x transverse). Echogenic area in the myometrium measuring 0.3 x 0.5 x 0.4 cm may reflect uterine fibroid though in the setting of a heterogeneous myometrium is made potentially represent adenomyosis. A cyst is noted posterior to the uterus measuring 1.8 x 1.1 x 1.3 cm, nonspecific. Uniform, homogeneous endometrium measures 0.2 cm in width. RIGHT OVARY: Right ovary not well visualized. No right adnexal masses or collections noted. LEFT OVARY: Left ovary not well visualized. No left adnexal masses or collections noted. FREE FLUID: No pelvic free fluid. US/US pelvic and transvaginal IMPRESSION: 1. Echogenic area in the myometrium measuring 0.3 x 0.5 x 0.4 cm may reflect uterine fibroid though in the setting of a heterogeneous myometrium is made potentially represent adenomyosis. 2. A cyst is noted posterior to the uterus measuring 1.8 x 1.1 x 1.3 cm, nonspecific. 3. Bilateral ovaries not well visualized. Electronically signed by: Deshaun Resendiz MD 02/15/2024 06:57 PM EDT
== END 2024-02-10 13:07 | disposition home or self-care (01) ==
LOC: HO.US 13:06
PROVIDERS: Visit Provider Advanced Practice Midwife
DX: D21.9 Benign neoplasm of connective and other soft tissue, unspecified (principal)
CPT/HCPCS: 76830; 76856

== ENCOUNTER 2024-04-14 08:59 | Outpatient (REF) | payer OTHER, SELFPAY ==
[2024-04-14 10:53] LABS: Alanine Aminotransferase 11 U/L (0-31); Aspartate Amino Transferase 26 U/L (5-31); Cholesterol 183 mg/dL (<200); HDL Cholesterol 49 mg/dL (>40); LDL Cholesterol Calculated 105 mg/dL (<100); Triglycerides 146 mg/dL (<150)
[2024-04-14 11:10] LABS: Free T4 (Free Thyroxine) 0.82 ng/dL (0.71-1.85); Thyroid Stimulating Hormone 5.61 uIU/mL (0.32-4.0); Vitamin D 25-OH Total 62.2 ng/mL (>30)
== END 2024-04-14 09:00 | disposition home or self-care (01) ==
LOC: HO.HMGCLDS 08:59
PROVIDERS: PCP Internal Medicine; Visit Provider Internal Medicine
DX: E78.5 Hyperlipidemia, unspecified (principal); E03.8 Other specified hypothyroidism; E06.3 Autoimmune thyroiditis
CPT/HCPCS: 36415; 80061; 82306; 84439; 84443; 84450; 84460

== ENCOUNTER 2024-04-15 09:04 | Outpatient (AMB) | payer OTHER, SELFPAY ==
[2024-04-15 09:07] VITALS: BP 130/88; PULSE 88; O2SAT 98; BMI 29.3
--- NOTE | 2024-04-15 09:07 | MHC.PC.OV ---
Vital Signs 04/15/24 09:07 Height 5 ft 4 in Weight 171 lb BMI 29.3 BP 130/88 Blood Pressure Location Rt brachial Position Sitting Pulse 88 Pulse Source Pulse Oximeter Pulse Oximetry (%) 98 Oxygen Delivery Method Room Air Intake Visit Reasons: 6 month follow up Intake Note: Pt is here today for her 6mo. f/u labs Allergies lisinopril Adverse Reaction (Unknown, Verified 04/19/24 21:06) cough Medication List - Last Reconciled 04/19/24 by Awilda Vilchis MD amoxicillin 500 mg PO Q12H atorvastatin 10 mg PO DAILY cholecalciferol (vitamin D3) 5,000 mcg PO BEDTIME cyclobenzaprine 10 mg PO BEDTIME diclofenac sodium 1% topical dicyclomine 20 mg PO BID docusate sodium 100 mg PO BID PRN fluoxetine 40 mg PO QAM gabapentin 100 - 200 mg PO BID PRN ipratropium bromide 2 sprays intranasal BID-TID PRN levocetirizine 5 mg PO DAILY PRN levothyroxine 25 mcg PO QAM omeprazole 20 mg PO QAM prazosin 2 mg PO BID sertraline 50 mg PO DAILY Tobacco use date assessed: 04/15/24 Dental Screening Dental Screen Date: 04/15/24 Did you have a dental visit in the last 12 months?: No Did you have a dental problem in the last 6 months where you did not have access to dental care?: No Was dental information given to patient?: Patient has dentist HPI 6 month follow up HPI Details 58-year-old lady with hyperlipidemia and hypothyroidism, here today for follow-up. She has been taking her medications as instructed, with recent fasting labs showed thyroid levels and lipids within normal limits. She had her mammoplasty done, and reports relief of her upper back pain. Complaining of a sore throat accompanied by nasal congestion present now for the last several days. No relief with taking [id number] cough and cold medications. 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 Brother No problems noted. Brother No problems noted. Brother No problems noted. Sister No problems noted. Sister No problems noted. Sister No problems noted. Son No problems noted. Daughter No problems noted. Daughter No problems noted. Daughter No problems noted. Social History Housing: Apartment Alcohol intake: never Patient Tobacco Use Status: Never used Tobacco e-Cigarette/Vaping Use: Never Used Second Hand Smoke Exposure: No service: No Current occupational status: unemployed Cognitive needs: No Hearing needs: No Vision needs: No Female Reproductive History Menstrual Age of Menarche: 14 Questionnaire Thrive Questionnaire Date Thrive assessed: 04/15/24 I am a: Parent/Caregiver What is your living situation today?: I have a steady place to live Within the past 12 months, did the food you bought not last and you didn't have the money to get more?: Sometimes True Within the past 12 months, did you worry whether your food would run out before you got money to buy more?: Sometimes True Do you have trouble paying for medicines?: No Do you have trouble getting transportation to medical appointments?: No Do you have trouble paying your heating and electricity bill?: No Do you have trouble taking care of your child, family member or friend?: No Do you have trouble with day-to-day activities such as bathing, preparing meals, shopping, managing finances, etc.?: I choose not to answer this question Are you currently unemployed and looking for a job?: No Are you interested in more education?: No Please select the resources that you would like help with: None Currently or been in a relationship where the following occur: I choose not to answer THRIVE Score: 2 AUDIT C Alcohol Use Questionnaire (AUDIT-C) 1. How often do you have a drink containing alcohol?: Never Total Score: 0 CARLY-7 AMB Questionnaire CARLY-7 Date CARLY - 7 assessed: 04/15/24 Feeling nervous, anxious, or on edge: 1 = Several days Not being able to stop or control worryin = Several days Worrying too much about different things: 1 = Several days Trouble relaxin = Several days Being so restless that it is hard to sit still: 0 = Not at all Becoming easily annoyed or irritable: 0 = Not at all Feeling afraid as if something awful might happen: 1 = Several days Total CARLY-7 score (0-4 normal; 5-9 mild; 10-14 moderate; 15-21 severe): 5 Source: Developed by Drs. Conner Flores, Naya Beasley, Abebe Martinez and colleagues, with an educational jamia from [employer]. CARYL-7 Assessment Billing CARLY-7 Assessment Tool: CARLY-7 Assessment 26422 Review of Systems Const Reports no additional complaints ENT Reports as per HPI Card Denies chest pain, Denies irregular heart rhythm and Denies lightheadedness Resp Reports no additional complaints GI Denies abdominal pain, Denies belching, Denies melena, Denies bloating and Denies change in bowel habits Reports no additional complaints Neuro Reports no additional complaints Psych Reports no additional complaints Endo Reports no additional complaints Ramiro/Lymph Reports no additional complaints Aller/Immun Denies seasonal rhinorrhea Physical exam (Primary Care) Vital Signs: Last Vital Signs Pulse 88 04/15/24 09:07 BP 130/88 04/15/24 09:07 Pulse Ox 98 04/15/24 09:07 Oxygen Delivery Method Room Air 04/15/24 09:07 BMI result Body Mass Index 29.3 Tobacco/Smoking Status: Tobacco use Status Tobacco use date assessed 04/15/24 04/15/24 09:08 Patient Tobacco Use Status Never used Tobacco 04/15/24 09:08 e-Cigarette/Vaping Use Never Used 04/15/24 09:08 PHQ-9: PHQ-9 Score PHQ-9: Total score 7 04/15/24 09:25 Thrive Assessment: Date of Thrive Assessment Date Thrive assessed 04/15/24 04/15/24 09:08 Currently or been in a relationship where the following occur: I choose not to answer Const Other: Alert oriented x3, no acute distress noted, ambulatory with normal gait, accompanied by daughter who helps translate HENMT Other: Mildly erythematous posterior pharyngeal mucosa, no exudate Ears: TM's normal bilaterally and EAC's normal General nose exam: Normal external nose present Face and sinus: Yes face symmetric Mouth: Normal oral and palatal mucosa present and moist mucous membranes Eyes General: appearance normal, both eyes and all related structures Neck Other: Supple, no thyromegaly or tenderness on palpation of thyroid gland, tender submandibular lymphadenopathy Chest Other: Well-healed mammoplasty scar bilateral Resp Auscultation: clear to auscultation bilaterally Cardio Other: S1-S2 present regular rate and rhythm GI Palpation (GI): Soft to palpation, nontender, no guarding and no masses Auscultation: normal bowel sounds Skin General skin exam: no rashes or lesions noted Neuro General: gait normal, tone normal, moves all extremities, Normal light touch and pain sensation, no focal motor deficits and CN's II-XI intact bilaterally Extrem General: Yes full ROM, Yes no joint enlargement, Yes no pedal edema, Yes no calf tenderness and Yes normal gait Results Reviewed Results Reviewed: Name: Pili Mcdaniels Age/Sex: 58/F : 1965 Unit#: [id number] Attend Dr: Awilda Vilchis MD Re04/14/24 Status: DEP REF Location: [facility] Disch: SPEC : [id number] TOBIN: 04/14/24 STATUS: COMP REQ : [id number] RECD: 04/14/24-[address]: Awilda Vilchis MD COMP: 04/14/24 ENTERED: 04/14/[address]: ORDERED: AST, ALT, Lipid Panel, Vitamin D 25-OH, Free T4, TSH Test Result Flag Reference AST (GOT) 26 5-31 U/L ALT (GPT) 11 0-31 U/L Triglyceride 146 <150 mg/dL Desirable Triglyceride: less than 150 mg/dL Borderline High Triglyceride 150-199 mg/dL High Triglyceride: 200-499 mg/dL Very High Triglyceride: greater than or equal to 5OO mg/dL Cholesterol 183 <200 mg/dL Desirable Cholesterol: less than 200 mg/dL Borderline High Cholesterol: 200-239 mg/dL High Cholesterol: greater than 239 mg/dL LDL Calculated 105 H <100 mg/dL Desirable LDL: less than 100 mg/dL Near Optimal/Above Optimal LDL: 110-129 mg/dL Borderline High LDL: 130-159 mg/dL High LDL: 160-189 mg/dL Very High LDL: greater than or equal to 190 mg/dL HDL 49 >40 mg/dL Desirable HDL: greater than 40 mg/dL Note: This HDL assay may give artificially low results in patients with liver disease. Vit D 25-OH Tot 62.2 >30 ng/mL Health Based Reference Values* < 20 ng/mL Deficient 20-30 ng/mL Insufficient > 30 ng/mL Sufficient *Milo MELLO. N Engl J Med. 2007;357:266-280 Care must be taken in interpreting Vitamin D results from different laboratories and methodologies. Published data demonstrated that results from patients undergoing hemodialysis may show a negative bias when tested with various automated 25-OH vitamin D assays when compared to LC-MS/MS. When testing samples from patients whose predominant form of Vitamin D is Vitamin D2, such as patients receiving Vitamin D2 supplementation, results that are subtherapeutic should be confirmed with another method such as LC-MS/MS. Free T4 0.82 0.71-1.85 ng/dL TSH 3rd Gen. 5.61 H 0.32-4.0 uIU/mL Note: A sustained TSH level above 2.5 uIU/mL may warrant further investigation. 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 (2) Dyslipidemia: Code(s): E78.5 - Hyperlipidemia, unspecified Category: Medical Plan: Reviewed recent fasting lipid profile with patient with levels within normal limits . Continue atorvastatin 10 mg daily , in addition to adherence to low-cholesterol diet and regular exercise, at least 30 minutes 3 to 4 times a week. Advised patient to make healthy food choices, eat more fruits, vegetables, whole grains, wild caught fish and low-fat dairy. Limit amount of meat and fried or fatty food products, as well as processed foods and fast foods. (3) Upper respiratory infection: Code(s): J06.9 - Acute upper respiratory infection, unspecified Plan: No improvement with [id number] clean cough and cold medication. Prescription sent for amoxicillin 100 mg to take 1 every 12 hours for 7 days. Return to clinic if no improvement of symptoms after completion of antibiotics Medications: New amoxicillin 500 mg PO Q12H 14 caps 0RF Refilled atorvastatin 10 mg PO DAILY 90 tabs 3RF levothyroxine 25 mcg PO QAM 90 tabs 1RF
== END 2024-04-15 09:55 | disposition home or self-care (01) ==
PROVIDERS: PCP Internal Medicine; Visit Provider Internal Medicine
DX: E03.8 Other specified hypothyroidism (principal); E06.3 Autoimmune thyroiditis; E78.5 Hyperlipidemia, unspecified; J06.9 Acute upper respiratory infection, unspecified

== ENCOUNTER → 2024-04-15 09:04 | Outpatient (BNVA) | payer OTHER, SELFPAY | PROVIDERS: PCP Internal Medicine; Visit Provider Internal Medicine | DX: E03.8 Other specified hypothyroidism (principal); E06.3 Autoimmune thyroiditis; E78.5 Hyperlipidemia, unspecified; J06.9 Acute upper respiratory infection, unspecified | CPT/HCPCS: 96127; 99212 ==

== ENCOUNTER 2024-04-17 14:53 | Outpatient (AMB) | payer OTHER, SELFPAY ==
--- NOTE | 2024-04-17 15:01 | MHC.OFFVIS ---
Intake Visit Reasons: US follow up Type Disk Quality Control Supervisor Required: Yes Type Disk Quality Control Supervisor Language: Slovenian Type Disk Quality Control Supervisor Services: Type Disk Quality Control Supervisor Present Type Disk Quality Control Supervisor Name: Chayo [id number] Information Interpreted: clinical only Lead Data Entry Operator: Lead Data Entry Operator Present Accompanied by: Daughter Allergies lisinopril Adverse Reaction (Unknown, Verified 04/17/24 15:02) cough Is last menstrual period known: Yes HPI Comments Details: Patient is here today for a follow up 6 months fibroid check for stability, accompanied by her daughter, Reham. 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 Brother No problems noted. Brother No problems noted. Brother No problems noted. Sister No problems noted. Sister No problems noted. Sister No problems noted. Son No problems noted. Daughter No problems noted. Daughter No problems noted. Daughter No problems noted. Social History Housing: Apartment Alcohol intake: never Patient Tobacco Use Status: Never used Tobacco e-Cigarette/Vaping Use: Never Used Second Hand Smoke Exposure: No service: No Current occupational status: unemployed Cognitive needs: No Hearing needs: No Vision needs: No Female Reproductive History Menstrual Age of Menarche: 14 Review of Systems Const All systems reviewed & are unremarkable except as noted in HPI and below Endo Reports no additional complaints Physical Exam Const General: cooperative, healthy appearing and no acute distress Psych Appearance: well kempt Attitude: cooperative Thought process: Normal thought process present Results Reviewed Results Reviewed: [address] [address] Ultrasound Report Signed Patient: Pili Mcdaniels MR#: [id number] : 1965 Acct:[id number] Age/Sex: 58 / F ADM Date: 02/10/24 Loc: HO.US Attending Dr: Liberty Heath CNM Ordering Physician: Liberty Heath CNM Date of Service: 02/10/24 Procedure(s): US pelvic and transvaginal Accession Number(s): [id number] cc: Liberty Heath CNM~ EXAMINATION: US PELVIS COMPLETE US PELVIS ENDOVAGINAL CLINICAL INFORMATION: D21.9 - Benign neoplasm of connective and other soft tissue, unspecified COMPARISON: Ultrasound pelvis from 11/26/2022 TECHNIQUE: Transabdominal and transvaginal images of the pelvis were obtained. FINDINGS: UTERUS: Anteverted. Normal size and contour, measuring 6.8 x 4.0 x 5.2 cm (cervix to fundus x AP x transverse). Echogenic area in the myometrium measuring 0.3 x 0.5 x 0.4 cm may reflect uterine fibroid though in the setting of a heterogeneous myometrium is made potentially represent adenomyosis. A cyst is noted posterior to the uterus measuring 1.8 x 1.1 x 1.3 cm, nonspecific. Uniform, homogeneous endometrium measures 0.2 cm in width. RIGHT OVARY: Right ovary not well visualized. No right adnexal masses or collections noted. LEFT OVARY: Left ovary not well visualized. No left adnexal masses or collections noted. FREE FLUID: No pelvic free fluid. US/US pelvic and transvaginal IMPRESSION: 1. Echogenic area in the myometrium measuring 0.3 x 0.5 x 0.4 cm may reflect uterine fibroid though in the setting of a heterogeneous myometrium is made potentially represent adenomyosis. 2. A cyst is noted posterior to the uterus measuring 1.8 x 1.1 x 1.3 cm, nonspecific. 3. Bilateral ovaries not well visualized. Electronically signed by: Deshaun Resendiz MD 02/15/2024 06:57 PM EDT Dictated By: Deshaun Resendiz MD Signed By: <Electronically signed by Deshaun Resendiz MD in OV> 02/15/24 1857 DD/ 1320 TD/TT: 02/10/24 1340 Central Processing Tech: Assessment & Plan Assessment & Plan (1) Fibroids: Code(s): D21.9 - Benign neoplasm of connective and other soft tissue, unspecified Category: Medical (2) Uterine fibroid: Code(s): D25.9 - Leiomyoma of uterus, unspecified Category: Medical Qualifiers: Uterine leiomyoma location: unspecified location Qualified Code(s): D25.9 - Leiomyoma of uterus, unspecified (3) Encounter to discuss test results: Code(s): Z71.2 - Person consulting for explanation of examination or test findings Plan Discussed: Uterine fibroid previous exam 1.9 and 2nd 1.2 cm current exam 0.5 single lesion noted. Reviewed the nature of fibroids and surveillance planned for 1 year stability then if any bleeding, pelvic pain, pressure or other symptoms occur to call sooner. She has a follow up with Dr. Nicholson in May for urology consult. She also has a colonoscopy appointment scheduled in April due to a positive Cologuard results. All of her questions and concerns were addressed to the best of my ability and shared decision making. She is agreeable to the plan of care. Insert voice recognition Orders: Orders US pelvic and transvaginal 11/02/24 D21.9 - Benign neoplasm of connective and other soft tissue, unspecified Coding Level of Care Code Est Pt Level 3 (49948) Diagnoses Fibroids D21.9 Uterine leiomyoma, unspecified location D25.9 Uterine leiomyoma location: unspecified location Encounter to discuss test results Z71.2
== END 2024-04-17 15:20 | disposition home or self-care (01) ==
LOC: HO.HWS 14:53
PROVIDERS: PCP Internal Medicine; Visit Provider Advanced Practice Midwife
DX: D25.9 Leiomyoma of uterus, unspecified (principal); Z71.2 Person consulting for explanation of examination or test findings
CPT/HCPCS: 99213

== ENCOUNTER → 2024-04-17 14:53 | Outpatient (BNVA) | payer OTHER, SELFPAY | PROVIDERS: PCP Internal Medicine; Visit Provider Advanced Practice Midwife | DX: Z71.2 Person consulting for explanation of examination or test findings (principal); D21.9 Benign neoplasm of connective and other soft tissue, unspecified; D25.9 Leiomyoma of uterus, unspecified | CPT/HCPCS: 99212 ==

== ENCOUNTER 2024-05-13 13:48 | Outpatient (AMB) | payer OTHER, SELFPAY ==
--- NOTE | 2024-05-13 13:49 | A.OFFVIS_ITS ---
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 Brother No problems noted. Brother No problems noted. Brother No problems noted. Sister No problems noted. Sister No problems noted. Sister No problems noted. Son No problems noted. Daughter No problems noted. Daughter No problems noted. Daughter No problems noted. Social History Housing: Apartment Alcohol intake: never Patient Tobacco Use Status: Never used Tobacco e-Cigarette/Vaping Use: Never Used Second Hand Smoke Exposure: No service: No Current occupational status: unemployed Cognitive needs: No Hearing needs: No Vision needs: No Female Reproductive History Menstrual Age of Menarche: 14 Review of Systems Const All systems reviewed & are unremarkable except as noted in HPI and below Reports no additional complaints Eyes Reports no additional complaints ENT Reports no additional complaints Card Reports no additional complaints Resp Reports no additional complaints GI Reports no additional complaints Reports as per HPI Musc Reports no additional complaints Skin/Breast Reports system reviewed and no additional complaints, except as documented Neuro Reports no additional complaints Psych Reports no additional complaints Endo Reports no additional complaints Ramiro/Lymph Reports no additional complaints Aller/Immun Reports no additional complaints Results AMB Urinalysis, Automated UA Leukoctes 0 Edouard/uL Last Edit by Gloria Tamayo CMA on 05/13/24 14:07 UA Nitrite Negative Last Edit by Gloria Tamayo CMA on 05/13/24 14:07 UA Urobilinogen 0.2 mg/dL Last Edit by Gloria Tamayo, ZOË on 05/13/24 14:0 7 UA Protein 0 mg/dL Last Edit by Gloria Tamayo, ZOË on 05/13/24 14:07 UA pH 6.0 Last Edit by Gloria Tamayo, ZOË on 05/13/24 14:07 UA Blood 10 Jacinto/uL Last Edit by Gloria Tamayo, ZOË on 05/13/24 14:07 UA Specific Rankin 1.010 Last Edit by Gloria Tamayo, ZOË on 05/13/24 14: 07 UA Ketone Negative Last Edit by Gloria Tamayo, ZOË on 05/13/24 14:07 UA Bilirubin 0 mg/dL Last Edit by Gloria Tamayo, ZOË on 05/13/24 14:07 UA Glucose 0 mg/dL Last Edit by Gloria Tamayo CMA on 05/13/24 14:07 Results Reviewed Results Reviewed: Laboratory Last Values Urine pH (Auto) 6.0 05/13/24 14:05 Specific Rankin (Auto) 1.010 05/13/24 14:05 Urine Protein (Auto) 0 mg/dL 05/13/24 14:05 Glucose (UA)(Auto) 0 mg/dL 05/13/24 14:05 Urine Ketones (Auto) Negative 05/13/24 14:05 Urine Blood (Auto) 10 Jacinto/uL 05/13/24 14:05 Urine Nitrite (Auto) Negative 05/13/24 14:05 Urine Bilirubin (Auto) 0 mg/dL 05/13/24 14:05 Urine Urobilinogen (Auto) 0.2 mg/dL 05/13/24 14:05 Leukocyte Esterase (Auto) 0 Edouard/uL 05/13/24 14:05 Assessment & Plan Assessment & Plan (1) Urinary frequency: Code(s): R35.0 - Frequency of micturition Category: Medical (2) Mixed stress and urge urinary incontinence: Code(s): N39.46 - Mixed incontinence Category: Medical Plan mybetriq 50 mg daily, Pelvic floor PT Orders: Orders AMB Urinalysis Automated Today Z13.9 - Encounter for screening, unspecified US retroperitoneal comp Today N39.46 - Mixed incontinence, R35.0 - Frequency of micturition Medications: New mirabegron ER (Myrbetriq) 50 mg PO DAILY 90 tabs 2RF Coding Diagnoses Urinary frequency R35.0 Mixed stress and urge urinary incontinence N39.46
== END 2024-05-13 15:22 | disposition home or self-care (01) ==
PROVIDERS: PCP Internal Medicine; Visit Provider Urology
DX: Z13.9 Encounter for screening, unspecified (principal)

== ENCOUNTER → 2024-05-13 13:48 | Outpatient (BNVA) | payer OTHER, SELFPAY | PROVIDERS: PCP Internal Medicine; Visit Provider Urology | DX: N39.46 Mixed incontinence (principal); R35.0 Frequency of micturition | CPT/HCPCS: 81003 ==

== ENCOUNTER 2024-05-21 12:45 | Outpatient (AMB) | payer OTHER, SELFPAY ==
[2024-05-21 12:48] VITALS: BP 168/98; PULSE 98; O2SAT 98
--- NOTE | 2024-05-21 12:48 | MHC.OFFVIS ---
Vital Signs 05/21/24 12:48 Height 5 ft 4 in BP 168/98 H Blood Pressure Location Lt brachial Position Sitting Pulse 98 Pulse Source Pulse Oximeter Pulse Oximetry (%) 98 Oxygen Delivery Method Room Air Intake Visit Reasons: [place] consult -- Repeat Intake Note: ESTABLISHED PATIENT Pili presents in office today for a scheduled repeat colo scrn. Pt had prev scrn as of 2 years ago. Meds and Allergies reviewed? Y No recent or relevant surgeries? N Any significant concerns or new changes? No significant concerns or changes per pt. Pharmacy verified? [facility]. Line Out Man Required: Yes Line Out Man Services: Line Out Man Offered & Declined Line Out Man Name: Family Accompanied by: Child Allergies No Known Allergies Allergy (Verified 05/21/24 12:52) HPI HPI [place] consult -- Repeat: Details: LAST VISIT: GERD (gastroesophageal reflux disease) Discussed with patient avoiding dietary triggers and late night snacking. Staying upright for minimum 3 hours after meals. Screen for colon cancer Patient denies any GI, cardiac or respiratory symptoms.? Denies any issues with anesthesia in the past.? Denies any history of sleep apnea.? No history infectious diseases in the past or present.? Not on any anticoagulation therapy.? No family or personal history of colon cancer or polyps.? Patient denies melena, hematochezia, unintentional weight loss or ribbon like stools.? Discussed at length the pre-procedure,? prep, diet & medications as well as what to expect prior, during and after the procedure.?? Stressed the importance of good bowel prep. ?Recommended the use of Vaseline or Calmoseptine OTC & baby wipes with bowel movements to promote comfort.? ?Patient verbalizes understanding and agrees to plan of care.? She was given the opportunity to ask questions and all questions answered.? We will see her after the procedure.? Irritable bowel syndrome with constipation Recently placed on dicyclomine by PCP. Patient was instructed to only take it if she has symptoms. Patient was encouraged to increase fiber intake. Discussed FODMAP diet. Increase water intake and activity to promote better bowel motility Plan Medications New bisacodyl (Dulcolax (bisacodyl)) take 2 tabs at noon the day before your colonoscopy 10 mg (2 x 5 mg) PO ONCE 2 tabs 0RF 1 day Z12.11 polyethylene glycol 3350 (Miralax) As directed by gastroenterology department at [facility] 238 grams PO ONCE 238 grams 0RF Z12.11 TODAY'S VISIT: Two years ago patient was supposed to go for colonoscopy, however patient was not ready to go at that time. PCP send patient to do Cologuard which came back positive in January of 2024. Patient is here today to discuss colonoscopy. Patient denies any cardiac or respiratory symptoms. Not on any anticoagulation medication. Patient denies melena, hematochezia, unintentional weight loss or ribbon like stools. Patient reports to have occasional constipation, however she tries to drink level tea and that helps. Patient denies any dyspepsia, dysphagia or odynophagia. No issues with anesthesia in the past. 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 Brother No problems noted. Brother No problems noted. Brother No problems noted. Sister No problems noted. Sister No problems noted. Sister No problems noted. Son No problems noted. Daughter No problems noted. Daughter No problems noted. Daughter No problems noted. Social History Housing: Apartment Alcohol intake: never Patient Tobacco Use Status: Never used Tobacco e-Cigarette/Vaping Use: Never Used Second Hand Smoke Exposure: No service: No Current occupational status: unemployed Cognitive needs: No Hearing needs: No Vision needs: No Female Reproductive History Menstrual Age of Menarche: 14 Review of Systems Const Denies weight gain and Denies weight loss ENT Reports no additional complaints, Denies dysphagia and Denies odynophagia Card Reports no additional complaints Resp Reports no additional complaints GI Denies abdominal pain, Denies belching, Denies melena, Denies bloating, Denies change in bowel habits, Denies dysphagia, Denies excessive flatus, Denies dyspepsia, Denies heartburn, Denies diarrhea, Denies loose stools, Denies nausea, Denies odynophagia and Denies vomiting Musc Reports no additional complaints Neuro Reports no additional complaints Psych Reports no additional complaints Endo Reports no additional complaints Physical Exam Vital Signs: Last Vital Signs Pulse 98 05/21/24 12:48 BP 168/98 H 05/21/24 12:48 Pulse Ox 98 05/21/24 12:48 Oxygen Delivery Method Room Air 05/21/24 12:48 Const General: healthy appearing, no acute distress and well developed Nutritional Appearance: well nourished Orientation/consciousness: patient oriented x3 Resp Effort & Inspection: normal respiratory effort, able to speak in complete sentences, no tracheal deviation and symmetric chest movement Auscultation: clear to auscultation bilaterally Cardio Rate: regular rate GI Inspection: Yes normal to inspection and No distended Palpation (GI): Soft to palpation, not firm, nontender and No hepatosplenomegaly present Auscultation: normal bowel sounds General: Yes no CVA tenderness Back/Spine/Pelvis Back: no CVA tenderness Skin General skin exam: elasticity normal, turgor normal and dry skin Neuro General: patient oriented x3 Psych Appearance: grossly normal Mental Status: mental status grossly normal Assessment & Plan Assessment & Plan (1) Positive colorectal cancer screening using Cologuard test: Code(s): R19.5 - Other fecal abnormalities Category: Medical (2) Chronic GERD: Code(s): K21.9 - Gastro-esophageal reflux disease without esophagitis Category: Medical (3) Screen for colon cancer: Code(s): Z12.11 - Encounter for screening for malignant neoplasm of colon Plan Message sent to surgical schedulers to book procedure for patient. Positive Cologuard in January. Patient denies any melena, hematochezia, unintentional weight loss or ribbon like stools. Patient denies any dyspepsia, dysphagia or odynophagia. Occasionally uses omeprazole for acid reflux. Patient reports that she is trying to avoid dietary triggers. Doing well with that. When constipated patient is using herbal tea which helps. Patient denies any cardiac or respiratory symptoms. Denies any issues with anesthesia in the past. No history of sleep apnea. Not on any anticoagulation medication. What to expect before during and after procedure discussed with patient. Stressed the importance of good bowel prep with patient. She will follow-up with us after procedure. Both patient and her daughter are agreeable to plan of care and verbalizes understanding of instructions. They were given the opportunity to ask questions and all questions answered. Thank you for allowing me to participate in her care Medications: New bisacodyl (Dulcolax (bisacodyl)) take 4 tabs at noon the day before your colonoscopy 20 mg (4 x 5 mg) PO ONCE 4 tabs 0RF 1 day Z12.11 - Encounter for screening for malignant neoplasm of colon polyethylene glycol 3350 (Miralax) As directed by gastroenterology department at [facility] 238 grams PO ONCE 238 grams 0RF Z12.11 - Encounter for screening for malignant neoplasm of colon Coding Level of Care Code Est Pt Level 3 (58499) Diagnoses Positive colorectal cancer screening using Cologuard test R19.5 Chronic GERD K21.9 Screen for colon cancer Z12.11 Time Spent (min) 30 Comment 20 minutes spent with patient and additional 10 minutes spent reviewing her records
== END 2024-05-21 13:29 | disposition home or self-care (01) ==
PROVIDERS: PCP Internal Medicine; Visit Provider Nurse Practitioner Family
DX: Z01.818 Encounter for other preprocedural examination (principal); Z12.11 Encounter for screening for malignant neoplasm of colon; R19.5 Other fecal abnormalities; K21.9 Gastro-esophageal reflux disease without esophagitis
CPT/HCPCS: 99212

== ENCOUNTER → 2024-05-21 12:45 | Outpatient (BNVA) | payer OTHER, SELFPAY | PROVIDERS: PCP Internal Medicine; Visit Provider Nurse Practitioner Family | DX: Z01.818 Encounter for other preprocedural examination (principal); K58.1 Irritable bowel syndrome with constipation; K21.9 Gastro-esophageal reflux disease without esophagitis; R19.5 Other fecal abnormalities | CPT/HCPCS: 99212 ==

== ENCOUNTER → 2024-06-08 12:47 | Day surgery (SDC) | payer OTHER, SELFPAY ==
--- NOTE | 2024-06-08 13:03 | MHC.SHP ---
Pre-Procedural Eval Section A - 24 Hr Update-Section A only Date of Service: 06/08/24 Section B - Complete if H&P > 30 days Chief Complaint: Other fecal abnormalities Medical History: Significant History (Uterine fibroid Stress incontinence Cervicalgia Discolored nails Dyslipidemia External hemorrhoid Arthralgia of multiple joints Anxiety and depression Vitamin D deficiency Irritable bowel syndrome with constipation Varicose vein of leg Sensory hearing loss, bilateral Hypothyroidism due to Alexandr') Allergies: Allergies Allergy/AdvReac Type Severity Reaction Status Date / Time No Known Allergies Allergy Verified 05/21/24 12:52 Plan I have reviewed the history and physical and performed a pertinent physical examination on my patient. No changes have occurred unless specified. Time Spent With Patient Time: Total time managing care of this patient today ____ minutes.
--- NOTE | 2024-06-08 14:00 | PC.NURSE ---
Patient in preop with Daughter. Preferred language Maori, daughter speaks Romanian fluently. Patient ate salad and rice at 1700 yesterday as well as OJ at 2200. Patient also drank a sip of tea with sugar at 1100 this morning. Per daughter, I had her drink two cups of the miralax mixed with water, and four pills . Since prep finished, patient has only had three BMs, last being brown diarrhea. Dr. Basilio made aware of all of this and at bedside. Patient to be rescheduled until tomorrow. This nurse went over detailed instructions with patient and daughter again. Verified that patient can drink clear liquids when she gets home, only up until 0000, nothing after midnight. Dr. Basilio to send another prep to pharmacy on file. Daughter aware patient needs to drink as instructed. Patient and daughter to be at [facility] tomorrow for 0900 arrival time.
== END ==
LOC: HO.SSS 12:47
PROVIDERS: PCP Internal Medicine; Visit Provider Internal Medicine Gastroenterology
DX: R19.5 Other fecal abnormalities (principal); Z53.8 Procedure and treatment not carried out for other reasons

== ENCOUNTER 2024-06-09 08:44 | Day surgery (SDC) | payer OTHER, SELFPAY ==
[2024-06-09 09:50] VITALS: BMI 29.0
[2024-06-09 09:53] VITALS: BP 141/87; PULSE 97; RESP 18; TEMP 36.8; O2SAT 98
[2024-06-09] MEDS: Lactated Ringers 1,000 ML 80 ML IVCONT (10:01)
--- NOTE | 2024-06-09 10:22 | P.HPSUR_ITS ---
Pre-Procedural Eval Section A - 24 Hr Update-Section A only Date of Service: 06/09/24 The patient is an INPATIENT: No The patient has been examined within 24 hours of the surgical procedure. The History & Physical has been completed within 30 days and I have reviewed it.: No Section B - Complete if H&P > 30 days Chief Complaint: screening Relevant Family History (Specify if Yes): No Relevant Social History: None Present Medications: see Short Stay Collaborative assessment Medical History: Significant History (Uterine fibroid Stress incontinence Cervic algia Discolored nails Dyslipidemia External hemorrhoid Arthralgia of multiple joints Anxiety and depression Vitamin D deficiency Irritable bowel syndrome with constipation Varicose vein of leg Sensory hearing loss, bilateral Hypothyroidism due to Alexandr') History of Previous Operations: Relevant previous surgery/procedure and date(s) (Hx of cholecystectomy) Allergies: Allergies Allergy/AdvReac Type Severity Reaction Status Date / Time No Known Allergies Allergy Verified 06/09/24 10:08 Review of Systems Sugical H&P ROS: Negative: Constitution, Cardiovascular, Respiratory and Gastrointestinal Exam Surgical H&P Exam: Normal: Heart, Normal: Lungs, Normal: Extremities and Normal: Abdomen Plan Diagnosis/Plan: Unchanged I have reviewed the history and physical and performed a pertinent physical examination on my patient. No changes have occurred unless specified. Time Spent With Patient Time: Total time managing care of this patient today ____ minutes.
--- NOTE | 2024-06-09 11:30 | HO.ANESPROP2 ---
[facility] Active Problems Active Problems: All Active Problems Mixed stress and urge urinary incontinence (Acute) Urinary frequency (Acute) Urge and stress incontinence (Acute) Fibroids (Acute) Positive colorectal cancer screening using Cologuard test (Acute) Chronic low back pain (Acute) Uterine fibroid (Acute) Stress incontinence (Acute) Chronic GERD (Acute) Cervicalgia (Acute) Dyslipidemia (Acute) External hemorrhoid (Acute) Arthralgia of multiple joints (Acute) Anxiety and depression (Acute) Irritable bowel syndrome with constipation (Acute) Sensory hearing loss, bilateral (Acute) 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 Brother No problems noted. Brother No problems noted. Brother No problems noted. Sister No problems noted. Sister No problems noted. Sister No problems noted. Son No problems noted. Daughter No problems noted. Daughter No problems noted. Daughter No problems noted. Family history of problems with anesthesia: No Surgical History Surgical History H/O breast surgery Hx of cholecystectomy History of Problems with Anesthesia: No Social History Social History Housing: Apartment Are you a primary intensive care specialist to a significant other at home: No Do you presently have visiting nurse or other home services: No Alcohol intake: never Patient Tobacco Use Status: Never used Tobacco e-Cigarette/Vaping Use: Never Used Second Hand Smoke Exposure: No Have you been hit, kicked, punched, or otherwise hurt by someone within the past year? If so, by whom?: No Are you DNR?: No Advance Directives: No Advance Directives Information Provided: Yes Recently lost weight without trying: No Nutrition Risks: No Nutritional Risk service: No Current occupational status: unemployed Cognitive needs: No Hearing needs: No Vision needs: No Meds Allergies Allergy/AdvReac Type Severity Reaction Status Date / Time No Known Allergies Allergy Verified 06/09/24 10:08 Active Medications: Current Medications Lactated Ringer's (Lr) 1,000 mls @ 80 mls/hr IVCONT .[id number] DANIELE Last Admin: 06/09/24 10:01 Dose: 80 mls/hr Home Medications ?Medication ?Instructions ?Recorded ?Confirmed ?Last Taken ?Type docusate sodium 100 mg capsule 100 mg PO BID PRN Constipation 08/25/20 06/09/24 Unknown History fluoxetine 20 mg capsule 40 mg PO QAM 08/25/20 06/09/24 Unknown History gabapentin 100 mg capsule 100 - 200 mg PO BID PRN Pain 08/25/20 06/09/24 Unknown History (Scale Score 1-3) prazosin 2 mg capsule 2 mg PO BID 02/08/21 06/09/24 Unknown History cholecalciferol (vitamin D3) 50 5,000 mcg PO BEDTIME 10/11/23 06/09/24 Unknown History mcg (2,000 unit) capsule cyclobenzaprine 10 mg tablet 10 mg PO BEDTIME 04/15/24 06/09/24 Unknown History diclofenac sodium 1 % topical gel topical 04/15/24 Unknown History sertraline 50 mg tablet 50 mg PO DAILY 04/15/24 06/09/24 Unknown History diclofenac potassium 50 mg tablet 50 mg PO DAILY 05/21/24 06/09/24 Unknown History Exam Height,Weight and Vital Signs: Height 5 ft 4 in Weight 76.657 kg Last Vital Signs Temp 98.2 F 06/09/24 09:53 Pulse 97 06/09/24 09:53 Resp 18 06/09/24 09:53 BP 141/87 H 06/09/24 09:53 Pulse Ox 98 06/09/24 09:53 O2 Del Method Room Air 06/09/24 09:53 Airway Mallampati Class: II TM Dist: >3cm Neck ROM: Full Assessment and Plan Assessment Anesthesia Assessment: Anesthesia Plan Discussed and Chart Reviewed Final Anesthetic Review Family History of Problems with Anesthesia: No History of Problems with Anesthesia: No NPO: Yes ASA Class: II Final Preanesthetic Review: No Changes in Pt Med Stat, Meds/Allgs Chart Reviewed, Consent Obtained/Reviewed, Anes Risks/Benef Reviewed and DNR Form (If Appl.) Patient Risk: Low Procedure Risk: Low Anesthetic Plan Anesthetic Plan: TIVA Disposition: Standard PACU
--- NOTE | 2024-06-09 12:20 | HO.OPN-COLON ---
Colonoscopy Operative Note Operative Note Date of Service: 06/09/24 Narrative: COLONOSCOPY TILL CECUM WITH BIOPSIES Pre-op diagnosis: Positive Cologuard test, screening Post-op diagnosis:? Melanosis coli, Diverticulosis, hemorrhoids Endoscopist:? Klaus Basilio MD Anesthesia:?MAC Consent: Indications for the procedure and potential complications of bleeding, perforation, reaction to medications and missed diagnosis were discussed with the patient and informed consent was obtained. Instrument: Olympus PCF H 190 L variable stiffness pediatric colonoscope Monitoring: Vital signs and clinical assessment, intermittent blood pressure monitoring, continuous EKG monitoring, Pulse oximetry and Carbon Dioxide monitoring were done throughout the procedure. Please see anesthesia flowsheet. Colon withdrawl time was 20 minutes. Procedure: The patient was placed in the left lateral decubitis position and pre-procedure medications were administered. After a digital rectal examination of the ano-rectum, the video colonoscope was inserted into the rectum and advanced through the colon to the cecum. The colonoscope was slowly withdrawn in a retrograde panoramic fashion and the colon mucosa was carefully examined including a retroflexed view of the rectum. Findings and interventions are described below. Procedure Difficulty: without difficulty Findings: Terminal Ileum: Not evaluated Cecum: Normal Ascending Colon: Mild melanosis coli througout the entire colon - random biopsies were obtained from the right colon Transverse Colon: Mild melanosis coli througout the entire colon Descending Colon: Mild melanosis coli througout the entire colon Sigmoid Colon: Moderate diverticulosis Rectum: Normal Ano-rectum: Moderate internal hemorrhoids Colon preparation: Good after copious irrigation. [place] Bowel Preparation Scale Right colon; 2 Transverse colon: 2 Left colon; 2 (0 = Unprepared colon segment with mucosa not seen due to solid stool that cannot be cleared. 1 = Portion of mucosa of the colon segment seen, but other areas of the colon segment not well seen due to staining, residual stool and/or opaque liquid. 2 = Minor amount of residual staining, small fragments of stool and/or opaque liquid, but mucosa of colon segment seen well. 3 = Entire mucosa of colon segment seen well with no residual staining, small fragments of stool or opaque liquid) Impression and Post Procedure Diagnosis: Colonoscopy Findings: No polyps were detected Mild melanosis coli througout the entire colon - random biopsies were obtained from the right colon Moderate diverticulosis seen in the sigmoid colon Moderate hemorrhoids on retroflexed exam. Plan: I will send a letter with biopsy results. Repeat Colonoscopy in 10 years if biopsies are normal. Above findings were reviewed with the patient and relevant handouts were given and the discharge area.
[2024-06-09 12:23] VITALS: BP 105/70; PULSE 90; RESP 16; TEMP 36.4; O2SAT 96
[2024-06-09 12:35] VITALS: BP 110/73; PULSE 88; RESP 18; TEMP 36.5; O2SAT 96
== END 2024-06-09 13:03 | disposition home or self-care (01) ==
PROVIDERS: PCP Internal Medicine; Visit Provider Internal Medicine Gastroenterology
PROC: 0DJD8ZZ Inspection of Lower Intestinal Tract, Via Natural or Artificial Opening Endoscopic (ICD-10-PCS; CPT 45378; principal; 2024-06-09 11:00)
DX: R19.5 Other fecal abnormalities (principal); K63.89 Other specified diseases of intestine; K57.30 Diverticulosis of large intestine without perforation or abscess without bleeding; K64.8 Other hemorrhoids; K64.4 Residual hemorrhoidal skin tags; K58.1 Irritable bowel syndrome with constipation; K21.9 Gastro-esophageal reflux disease without esophagitis; E78.5 Hyperlipidemia, unspecified; E55.9 Vitamin D deficiency, unspecified; E06.3 Autoimmune thyroiditis; D25.9 Leiomyoma of uterus, unspecified; N39.3 Stress incontinence (female) (male); M54.2 Cervicalgia; F41.9 Anxiety disorder, unspecified; Z79.899 Other long term (current) drug therapy; Z98.890 Other specified postprocedural states; Z56.0 Unemployment, unspecified
CPT/HCPCS: 45380; 88305; J2003; J2704

== ENCOUNTER → 2024-06-09 08:44 | Outpatient (BNV) | payer OTHER, SELFPAY | PROVIDERS: PCP Internal Medicine; Visit Provider Internal Medicine Gastroenterology | DX: Z12.11 Encounter for screening for malignant neoplasm of colon (principal); R19.5 Other fecal abnormalities; K63.89 Other specified diseases of intestine; K57.30 Diverticulosis of large intestine without perforation or abscess without bleeding | CPT/HCPCS: 45380 ==

== ENCOUNTER 2024-08-20 14:11 | Outpatient (REF) | payer OTHER, SELFPAY ==
--- NOTE | ~2024-08-20 | US_ITS ---
CLINICAL HISTORY: R35.0 - Frequency of micturition US Renal Comparison: None Findings: Right kidney normal size and echotexture, 10.2 cm length. Left kidney normal size and echotexture, 9.8 cm length. No collecting system dilatation of either kidney. Normal color Doppler. IMPRESSION: 1. Normal kidneys. This document has been electronically signed by: Chapito Mejia MD on 08/21/2024 08:46:29
[2024-08-20 16:50] LABS: Alanine Aminotransferase 14 U/L (0-31); Aspartate Amino Transferase 27 U/L (5-31); Cholesterol 195 mg/dL (<200); HDL Cholesterol 57 mg/dL (>40); LDL Cholesterol Calculated 118 mg/dL (<100); Triglycerides 102 mg/dL (<150)
[2024-08-20 17:06] LABS: Free T4 (Free Thyroxine) 0.87 ng/dL (0.71-1.85); Thyroid Stimulating Hormone 3.03 uIU/mL (0.32-4.0)
== END 2024-08-20 14:12 | disposition home or self-care (01) ==
LOC: HO.HMGCX 14:11
PROVIDERS: PCP Internal Medicine; Referring Provider Internal Medicine; Visit Provider Urology
DX: N39.46 Mixed incontinence (principal); R35.0 Frequency of micturition; E78.5 Hyperlipidemia, unspecified; E03.8 Other specified hypothyroidism; E06.3 Autoimmune thyroiditis; I10 Essential (primary) hypertension
CPT/HCPCS: 36415; 76775; 80061; 82306; 84439; 84443; 84450; 84460

== ENCOUNTER → 2024-08-20 14:23 | Outpatient (BNV) | payer OTHER, SELFPAY | PROVIDERS: PCP Internal Medicine; Referring Provider Internal Medicine; Visit Provider Specialist | DX: R35.0 Frequency of micturition (principal) | CPT/HCPCS: 76775 ==

== ENCOUNTER 2024-08-27 13:16 | Outpatient (AMB) | payer OTHER, SELFPAY ==
--- NOTE | 2024-08-27 11:47 | A.OFFVIS_ITS ---
Intake Visit Reasons: Us follow up Intake Note: Patient is present for a follow up/US Urology Med: None Antibiotic Allergy: None Blood Thinner: None PVR:0ml Assistant Professor Of Nursing Services: Assistant Professor Of Nursing Present Assistant Professor Of Nursing Name: [id number] Information Interpreted: non-clinical & clinical Allergies No Known Allergies Allergy (Verified 08/27/24 13:19) Medication List - Last Reconciled 08/27/24 by Agueda Mckeon MD atorvastatin 10 mg PO DAILY cholecalciferol (vitamin D3) 5,000 mcg PO BEDTIME cyclobenzaprine 10 mg PO BEDTIME diclofenac sodium 1% topical dicyclomine 20 mg PO BID docusate sodium 100 mg PO BID PRN gabapentin 100 - 200 mg PO BID PRN ipratropium bromide 2 sprays intranasal BID-TID PRN levocetirizine 5 mg PO DAILY PRN levothyroxine 25 mcg PO QAM mirabegron ER (Myrbetriq) 50 mg PO DAILY omeprazole 20 mg PO QAM prazosin 2 mg PO BID sertraline 50 mg PO DAILY HPI Comments Details: 08/27/24-- FU renal US, trial of myrbetriq 50 mg daily prescribed on 05/13/24. 58-year-old female presenting with overactive bladder symptoms. She was initially assessed on May 13, 2024, and prescribed Mirabegron 50 mg. The patient acknowledges erratic usage of the medication, although she finds it beneficial for managing urinary urgency when taken. She has undergone a renal ultrasound on August 20, 2024, revealing normal kidney function without evidence of stones or lesions. The patient reports no adverse reactions to Mirabegron and maintains a fluid intake that avoids known triggers for her symptoms. There is a record of microscopic hematuria identified in previous laboratory work. A kidney ultrasound did not reveal abnormalities; however, additional imaging of the bladder and a cystoscopy have been suggested to investigate further. Urinary Symptoms Review - Urinary urgency managed with Mirabegron when taken - Nocturnal symptoms not discussed - No occurrences of incontinence mentioned - Fluid intake includes water and occasional juices; avoids stimulants - Previous assessment noted microscopic hematuria Results - Renal Ultrasound (August 20, 2024): Normal findings; kidneys normal, negative for stones or lesions - Urinary test: Microscopic hematuria detected 05/13/24--Pili is here with complaints of urinary incontinence, associated with urge and stress, denies UTI symptoms, denies hematuria, Nocturia 1-2 times. Discussed behaviorial modification, avoiding dietary bladder irritants, pelvic floor PT, trial myrbetriq. 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 Brother No problems noted. Brother No problems noted. Brother No problems noted. Sister No problems noted. Sister No problems noted. Sister No problems noted. Son No problems noted. Daughter No problems noted. Daughter No problems noted. Daughter No problems noted. Social History Housing: Apartment Are you a primary foster care worker to a significant other at home: No Do you presently have visiting nurse or other home services: No Alcohol intake: never Patient Tobacco Use Status: Never used Tobacco e-Cigarette/Vaping Use: Never Used Second Hand Smoke Exposure: No service: No Current occupational status: unemployed Cognitive needs: No Hearing needs: No Vision needs: No Female Reproductive History Menstrual Age of Menarche: 14 Review of Systems Const All systems reviewed & are unremarkable except as noted in HPI and below Reports no additional complaints Eyes Reports no additional complaints ENT Reports no additional complaints Card Reports no additional complaints Resp Reports no additional complaints GI Reports no additional complaints Reports as per HPI Musc Reports no additional complaints Skin/Breast Reports system reviewed and no additional complaints, except as documented Neuro Reports no additional complaints Psych Reports no additional complaints Endo Reports no additional complaints Ramiro/Lymph Reports no additional complaints Aller/Immun Reports no additional complaints Results Reviewed Results Reviewed: Date of Service: 08/20/24 CLINICAL HISTORY: R35.0 - Frequency of micturition US Renal Comparison: None Findings: Right kidney normal size and echotexture, 10.2 cm length. Left kidney normal size and echotexture, 9.8 cm length. No collecting system dilatation of either kidney. Normal color Doppler. IMPRESSION: 1. Normal kidneys. Assessment & Plan Assessment & Plan (1) Urinary frequency: Code(s): R35.0 - Frequency of micturition Category: Medical (2) Mixed stress and urge urinary incontinence: Code(s): N39.46 - Mixed incontinence Category: Medical (3) Pelvic floor weakness: Code(s): N81.89 - Other female genital prolapse Category: Medical Plan Discussion Notes I discussed with the patient the results of the renal ultrasound, which were normal. We reviewed the effectiveness of Mirabegron in relieving her overactive bladder symptoms, although she has not been taking it daily. I advised the importance of consistent medication use and addressed her current urinary habits, recommending maintaining hydration while avoiding potential dietary triggers like coffee. Plan - Take Mirabegron 50 mg daily as prescribed. - Maintain adequate hydration with water and limit intake of stimulants like coffee. - Attend the scheduled bladder ultrasound. - Follow-up with cystoscopy appointment as directed. - Report any adverse symptoms or significant changes in urinary habits. - Future follow-up visit in approximately six months to review medication effectiveness and symptom progress. Medications: Refilled mirabegron ER (Myrbetriq) 50 mg PO DAILY 90 tabs 2RF Patient Instructions: The patient had an opportunity to ask questions regarding treatment plan. The patient expressed understanding and agreement with the above treatment plan. The patient is aware they should contact our office by phone for worsening of their current condition or the appearance of new symptoms. Compliance is encouraged with any medications and followup testing that is ordered. It is a privilege to be allowed the opportunity to participate in the urologic care of your patient. If you have any questions or concerns regarding treatment for the above conditions please do not hesitate to contact me. The office telephone contact is [phone]. This note is constructed in part using voice recognition software. While every effort has been made to ensure accuracy publicist errors may have been included. Yours sincerely, Agueda Mckeon MD Scribe Plan - Not visible on output: Patient was informed and verbally consented to the use of an ambient scribe for clinic note documentation during this visit. Coding Level of Care Code Est Pt Level 4 (73485) Diagnoses Urinary frequency R35.0 Mixed stress and urge urinary incontinence N39.46 Pelvic floor weakness N81.89
--- OUTSIDE RECORDS SUMMARY | 2024-08-27 16:25 | XMS_ITS | Clinical Summary ---
Author Organization [facility] Address [address] [place] [address] Care Team Providers Care General Operator Name Role Phone Awilda Fang SCHOOL COMMUNITY RELATIONS COORDINATOR Primary Care Provider [phone] Source Comments PLEASE NOTE, if this patient is a minor, it may be UNLAWFUL to discuss sensitive information that is contained in these records (such as FAMILY PLANNING, MENTAL HEALTH or SUBSTANCE ABUSE) with the minor patient's parent or other person without the patient's specific authorization.[facility] Allergies No known active allergies Medications blood pressure monitorIndication s:HTN (hypertension) Check BP daily. Dx: HTN 1 Kit 0 3 Active leg brace (KNEE BRACE)Indications :Knee pain, left Left knee brace. DX: knee pain, OA 1 each 0 4 Active compression stockingIndicatio ns:Varicose veins of leg with edema, bilateral Knee high, regular length, medium 15-20mmHg Dx: Varicose veins with edema bilateral ICD: I83.893 2 Each 0 6 Active buPROPion (WELLBUTRIN XL) 150 mg 24 hr tabletIndications :Anxiety and depression Take 1 Tab by mouth every morning. Swallow whole. Do not crush or chew. PER PSYCH 6 Active QUEtiapine (SEROQUEL) 25 mg tabletIndications :Anxiety and depression Take 1 Tab by mouth 3 (three) times daily. PER PSYCH. 6 Active polyethylene glycol (GLYCOLAX, MIRALAX) 17 gram/dose powder Per GI 0 6 Active FLUoxetine (PROZAC) 20 mg capsule 0 7 Active vitamin D 2,000 unit tabletIndications :Vitamin D deficiency Take 1 Tab by mouth once daily 30 Tab 3 7 Active ibuprofen (ADVIL,MOTRIN) 600 mg tabletIndications :Chronic left-sided low back pain without sciatica Take 1 Tab by mouth 4 (four) times daily as needed for pain 60 Tab 2 7 Active dicyclomine (BENTYL) 20 mg tabletIndications :Irritable bowel syndrome without diarrhea Take 2 Tabs by mouth 2 (two) times daily Per GI 120 Tab 6 7 Active meclizine (ANTIVERT) 25 mg tabletIndications :Vertigo Take 1 Tab by mouth 3 (three) times daily 90 Tab 12 7 Active acetaminophen (TYLENOL) 500 mg tabletIndications :Chronic left-sided low back pain without sciatica,Chronic pain of both knees Take 1-2 tabs every 8 hours as needed for pain. Alternate with ibuprofen 180 Tab 1 7 Active FISH OIL 360-1,200 mg capIndications:Ro utine general medical examination at a health care facility take 1 capsule by mouth once daily 30 Cap 3 7 Active omeprazole (PRILOSEC) [address] capsuleIndication s:Gastroesophagea l reflux disease without esophagitis take 2 capsules by mouth every morning BEFORE BREAKFAST. DO NOT CRUSH OR CHEW 60 Cap 6 7 Active lisinopril-hydroc hlorothiazide (PRINZIDE,ZESTORE TIC) 10-12.5 mg per tabletIndications :Essential hypertension take 1 tablet by mouth twice a day 60 Tab 6 7 Active DOK 100 mg capsule take 1 capsule by mouth twice a day 60 Cap 3 8 Active Active Problems Problem Noted Date Diagnosed Date Irritable bowel syndrome with constipation 02/26 Vitamin D deficiency 07/20/2016 Anxiety and depression 04/02/2016 Overview (02/26/2017): Psych f/u at [facility] with Jing Sandra NP. Routine gynecological examination 05/20/2014 Overview (05/20/2014): 04/20/13: pap NILwith ECC HPV NEG. Pelvic exam revealing cystocele. Pelvic u/s 05/05/13: WNL. Has paraguard likes want to keep. Menses q 2weeks light. Mammo WNL106/2012 Annual 05/20/14 done no CBE, pelvic WNL No pap per guidlines BPPV (benign paroxysmal positional vertigo) 01/01 Chronic pain of both knees 11/11/2013 Overview (02/26/2017): Left knee injection 2015 per pt Chronic left-sided low back pain without sciatic a 04/03/2013 HTN (hypertension) 03/12/2013 GERD (gastroesophageal reflux disease) 3 Leg cramps 01/06/2013 Resolved Problems Problem Noted Date Diagnosed Date Resolved Date Refugee health examination 01/06/2013 0 01/11/2014 Immunizations Immunization Administration Dates Next Due INFLUENZA, SEASONAL, INJECTABLE, PRESERVATIVE FR EE 06/24/2013 MMR (MMR II/Priorix) 01/06/2013,12/02/2012 TDAP 01/06/2013,12/02/2012 Family History Medical History Relation Name Comments Cancer Maternal Uncle Diabetes Maternal Uncle Heart Problems Mother Hypertension Mother Relation Name Status Comments Maternal Uncle Mother Social History Tobacco Use Types Packs/Day Years Used Date Smoking Tobacco: Some Days Cigarettes 0.1 5 Comments:1-2 cigarettes a da y Alcohol Use Standard Drinks/Week Comments No 0 (1 standard drink = 0.6 oz pur e alcohol) Social Connections Answer Date Recorded Social Connections and Isolation 0 01/24/2019 Financial Resource Strain Answer Date R ecorded Financial Resource Strain 0 2018 Stress Answer Date Recorded Stress 0 01/24/2019 Physical Activity Answer Date Recorded Physical Activity 0 01/24/2019 Food Insecurity Answer Date Recorded Food 0 01/24/2019 Transportation Needs Answer Date Record ed Transportation 0 01/24/2019 Housing Stability Answer Date Recorded Housing 0 01/24/2019 Safety and Environment Answer Date Tony rded Safety 0 01/24/2019 Utilities Answer Date Recorded Utilities 0 01/24/2019 Employment Answer Date Recorded Employment 0 01/24/2019 Comments No Sex and Gender Information Value Date Recorded Sex Assigned at Not on file Legal Sex Female 4:08 PM PDT Gender Identity Not on file Sexual Orientation Not on file Last Filed Vital Signs Vital Sign Reading Time Taken Comments Blood Pressure 126/80 02/26/2017 9:36 AM EDT Pulse 80 02/26/2017 9:36 AM EDT Temperature 36.6 ??C (97.8 ??F) 02/26/2017 9:36 AM ED T Respiratory Rate 16 02/26/2017 9:36 AM EDT Oxygen Saturation 98% 09/28/2016 10:51 AM EDT Inhaled Oxygen Concentration - - Weight 80 kg (176 lb 4.8 oz) 02/26/2017 9:36 AM EDT Height 162.6 cm (5' 4 ) 02/26/2017 9:36 AM EDT Body Mass Index 30.26 02/26/2017 9:36 AM EDT Plan of Treatment Not on file Insurance [facility] [employer] [id number] [place] [address] [place] [address] [facility] NET DENTAL [address] [place], [place] [address]NET DENTAL Care Teams General Operator Relationship Specialty Start Date End Date Awilda Fang FNP [address] [place] [id number] PCP - General Internal Medicine 05/16/19
--- OUTSIDE RECORDS SUMMARY | 2024-08-27 16:25 | XMS_ITS | Clinical Summary ---
Author Organization [facility] it Address [address] [place] [address] Care Team Providers Care Wellhead Pumper Name Role Phone Unavailable Primary Care Provider Unavailabl e Social History Tobacco Use Types Packs/Day Years Used Date Smoking Tobacco: Never Assessed Comments Unknown Sex and Gender Information Value Date Recorded Sex Assigned at Not on file Legal Sex Female 9:52 AM EST Gender Identity Not on file Sexual Orientation Not on file Plan of Treatment Health Maintenance Due Date Last Done Comments Breast Cancer Screening 1966 DTaP,Tdap,and Td Vaccines (1 - Tdap) 1985 Hepatitis B Vaccines (1 of 3 - 19+ 3-dose series) 1985 Cervical Cancer Screening: P ap Smear 09/04/1987 Pneumococcal Vaccine: 50+ Ye ars (1 of 1 - PCV) 2016 Zoster Vaccines (1 of 2) 2016 Colorectal Cancer Screening: Colonoscopy 05/01/2022 Depression Screening 05/01/2022 HIV Screening 05/01/2022 Hepatitis C Screening 05/01/2022 Social Influencers of Health Screening 05/01/2022 COVID-19 Vaccine ( - 2023-2 5 season) 2024 Influenza Vaccine (#1) 2024 HIB Vaccines Aged Out No longer eligi ble based on patient's age to complete this topic HPV Vaccines Aged Out No longer eligi ble based on patient's age to complete this topic Hepatitis A Vaccines Aged Out No long er eligible based on patient's age to complete this topic IPV Vaccines Aged Out No longer eligi ble based on patient's age to complete this topic MMR Vaccines Aged Out No longer eligi ble based on patient's age to complete this topic Meningococcal ACWY Vaccine Aged Out N o longer eligible based on patient's age to complete this topic Meningococcal B Vacine Aged Out No lo nger eligible based on patient's age to complete this topic Pneumococcal Vaccine: Pediat rics (0 to 5 Years) and At-Risk Patients (6 to 64 Years) Aged Out No longer eligible b ased on patient's age to complete this topic RSV Immunization Patients Un samira 20 months Aged Out No longer eligible b ased on patient's age to complete this topic Varicella Vaccines Aged Out No longer eligible based on patient's age to complete this topic
== END 2024-08-27 13:57 | disposition home or self-care (01) ==
LOC: HO.HUSH 13:17
PROVIDERS: PCP Internal Medicine; Visit Provider Urology
DX: R35.0 Frequency of micturition (principal); N39.46 Mixed incontinence; N81.89 Other female genital prolapse; Z13.9 Encounter for screening, unspecified
CPT/HCPCS: 99214

== ENCOUNTER 2024-08-27 13:16 | Outpatient (REF) | payer OTHER, SELFPAY ==
[2024-08-27 16:54] LABS: Urine Cytology See Pathology rpt
== END 2024-08-27 13:17 | disposition home or self-care (01) ==
LOC: HO.LNP 13:16
PROVIDERS: PCP Internal Medicine; Visit Provider Urology
DX: R35.0 Frequency of micturition (principal); N39.46 Mixed incontinence; N81.89 Other female genital prolapse
CPT/HCPCS: 81003; 88112; 99212

== ENCOUNTER 2024-08-31 13:29 | Outpatient (REF) | payer OTHER, SELFPAY ==
--- NOTE | ~2024-08-31 | US_ITS ---
CLINICAL HISTORY: FREQUENCY Bladder ultrasound Comparison: US - US RENAL BI - 08/20/24 14:29 EDT Findings: The urinary bladder is unremarkable. Prevoid volume 225 mL. Postvoid volume 22 mL. Ureteral jets are visualized bilaterally. Impression: Normal bladder ultrasound. This document has been electronically signed by: Joycelyn Holcomb MD on 08/31/2024 21:55:20
--- OUTSIDE RECORDS SUMMARY | 2024-08-31 15:13 | XMS_ITS | Clinical Summary ---
Author Organization [facility] Address [address] [place] [address] Care Team Providers Care Exhauster Engineer Name Role Phone Awilda Fang OLIVE BRINE TESTER Primary Care Provider [phone] Source Comments PLEASE NOTE, if this patient [...] Plan of Treatment Not on file Insurance [facility] [employer] [id number] [place] [address] [place] [address] [facility] NET DENTAL [address] [place], [place] [address]NET DENTAL Care Teams Exhauster Engineer Relationship Specialty Start Date End Date Awilda Fang FNP [address] [place] [id number] PCP - General Internal Medicine 05/16/19
--- OUTSIDE RECORDS SUMMARY | 2024-08-31 15:13 | XMS_ITS | Clinical Summary ---
Author Organization [facility] it Address [address] [place] [address] Care Team Providers Care Online Facilitator Name Role Phone Unavailable Primary Care Provider [...]
== END 2024-08-31 13:30 | disposition home or self-care (01) ==
LOC: HO.HMGCX 13:29
PROVIDERS: PCP Internal Medicine; Visit Provider Urology
DX: R35.0 Frequency of micturition (principal); N39.46 Mixed incontinence
CPT/HCPCS: 76857

== ENCOUNTER → 2024-08-31 13:35 | Outpatient (BNV) | payer OTHER, SELFPAY | PROVIDERS: PCP Internal Medicine; Visit Provider Radiology Diagnostic Radiology | DX: R35.0 Frequency of micturition (principal) | CPT/HCPCS: 76857 ==

== ENCOUNTER 2024-09-22 08:50 | Outpatient (AMB) | payer OTHER, SELFPAY ==
--- OUTSIDE RECORDS SUMMARY | 2024-09-22 09:11 | XMS_ITS | Clinical Summary ---
Author Organization [facility] Address [address] [place] [address] Care Team Providers Care Stakes Player Name Role Phone Awilda Fang BULK TRUCK DRIVER Primary Care Provider [phone] Source Comments PLEASE NOTE, if this patient [...] Plan of Treatment Not on file Insurance [facility] [employer] [id number] [place] [address] [place] [address] [facility] NET DENTAL [address] [place], [place] [address]NET DENTAL Care Teams Stakes Player Relationship Specialty Start Date End Date Awilda Fang FNP [address] [place] [id number] PCP - General Internal Medicine 05/16/19
--- OUTSIDE RECORDS SUMMARY | 2024-09-22 09:11 | XMS_ITS | Clinical Summary ---
Author Organization [facility] it Address [address] [place] [address] Care Team Providers Care Patient Registration Rep Name Role Phone Unavailable Primary Care Provider [...] - 2023-2 5 season) 2024 Influenza Vaccine (Season Ended) 2025 HIB Vaccines Aged Out No longer eligi [...] age to complete this topic Meningococcal B Vaccine Aged Out No l onger eligible based on patient's age to complete [...]
--- NOTE | 2024-09-22 09:56 | A.OFFVIS_ITS ---
Intake Visit Reasons: cysto Intake Note: Patient is present for a cystoscopy Urology Med: None Antibiotic Allergy: None Blood Thinner: None Brick Tender Services: Brick Tender Present Brick Tender Name: Armando Information Interpreted: non-clinical & clinical Allergies No Known Allergies Allergy (Verified 09/22/24 10:07) HPI Comments Details: 09/22/24--Here for office cystoscopy due to microscopic hematuria. UA leuk neg, blood 1+. She is prescribed myrbetriq 50 mg daily for OAB symptoms. Urinary Symptoms Review - Bladder spasms and urgency Cystoscopy Findings: No suspicious bladder lesions, Bladder wall thickening observed in diagnostic procedure Results - Renal Ultrasound (August 20, 2024): Normal findings; kidneys normal, negative for stones or lesions - Urinary test: Microscopic hematuria detected [facility] Medical History Encounter for screening Uterine fibroid Stress incontinence Cervicalgia Discolored nails Dyslipidemia External hemorrhoid Arthralgia of multiple joints Anxiety and depression Vitamin D deficiency Irritable bowel syndrome with constipation Varicose vein of leg Sensory hearing loss, bilateral 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 Brother No problems noted. Brother No problems noted. Brother No problems noted. Sister No problems noted. Sister No problems noted. Sister No problems noted. Son No problems noted. Daughter No problems noted. Daughter No problems noted. Daughter No problems noted. Social History Housing: Apartment Are you a primary patient care manager to a significant other at home: No Do you presently have visiting nurse or other home services: No Alcohol intake: never Patient Tobacco Use Status: Never used Tobacco e-Cigarette/Vaping Use: Never Used Second Hand Smoke Exposure: No service: No Current occupational status: unemployed Cognitive needs: No Hearing needs: No Vision needs: No Female Reproductive History Menstrual Age of Menarche: 14 Review of Systems Const All systems reviewed & are unremarkable except as noted in HPI and below Reports no additional complaints Eyes Reports no additional complaints ENT Reports no additional complaints Card Reports no additional complaints Resp Reports no additional complaints GI Reports no additional complaints Reports as per HPI Musc Reports no additional complaints Skin/Breast Reports system reviewed and no additional complaints, except as documented Neuro Reports no additional complaints Psych Reports no additional complaints Endo Reports no additional complaints Ramiro/Lymph Reports no additional complaints Aller/Immun Reports no additional complaints Office Procedures Cystoscopy Consent Discussed risk and benefit or proposed procedure with the patient. Information consent for procedure given to the patient. Discussed technical aspects, risks, benefits and alternatives in full. Addressed all of the patient's questions and concerns regarding the procedure. The patient demonstrated knowledge and understanding. They wish to proceed with this procedure. Preparation The patient was prepped in the usual manner. A bakery manager was present and in the room. Genitalia was prepped with betadine solution in a sterile manner. Lidocaine Jelly 2% was placed into the urethra and 16Fr flexible Olympus cystoscope was inserted into the meatus after adequate lubrication. Procedure Time out per protocol performed. Speculum used as indicated for adequate visualization of urethra, the flexible cystoscope is passed transurethrally: The bladder was inspected in its entirety with utilization retroflexion displaying: Tumor(s): no suspicious bladder lesions visualized Trabeculation: Mild to Moderate Mucosal Erthema:mild Orifices: normal shape and position Urethra: normal Cystoscopy findings: Bladder wall thickening, no suspicious bladder lesions visualized [id number] DISPOSABLE SCOPE URO-G FLEXIBLE SCOPE Procedure code (CPT) selection complete Office Meds lidocaine HCl 2 % mucosal jelly in applicator Performing Provider: Agueda Mckeon MD Performing [facility] Administered by: Francie Galan RN on 09/22/24 10:32 Dose Route Admin Location Dispensed Lot Number Expiration Date [facility] Shower Room Attendant 10 mL intra-urethral 20 mL ciprofloxacin HCl 500 mg tablet Performing Provider: Agueda Mckeon MD Performing Location: [facility] Urology [facility] Administered by: Francie Galan RN on 09/22/24 10:32 Dose Route Admin Location Dispensed Lot Number Expiration Date [facility] Shower Room Attendant 500 mg PO 1 tab phenazopyridine 200 mg tablet Performing Provider: Agueda Mckeon MD Performing Location: [facility] Administered by: Francie Galan RN on 09/22/24 10:32 Dose Route Admin Location Dispensed Lot Number Expiration Date [employer] Shower Room Attendant 200 mg PO 1 tab Assessment & Plan Assessment & Plan (1) Urinary frequency: Code(s): R35.0 - Frequency of micturition Category: Medical (2) Mixed stress and urge urinary incontinence: Code(s): N39.46 - Mixed incontinence Category: Medical Plan Plan - Continue taking Mirabegron as prescribed. - Expect some burning and a small amount of blood in urine today, which should improve by tomorrow. - Drink additional water today to help clear any blood in urine. - Follow up in six months for re-evaluation. Orders: Orders AMB Cystoscopy Today N39.46 - Mixed incontinence, R35.0 - Frequency of micturition Patient Instructions: The patient had an opportunity to ask questions regarding treatment plan. The patient expressed understanding and agreement with the above treatment plan. The patient is aware they should contact our office by phone for worsening of their current condition or the appearance of new symptoms. Compliance is encouraged with any medications and followup testing that is ordered. It is a privilege to be allowed the opportunity to participate in the urologic care of your patient. If you have any questions or concerns regarding treatment for the above conditions please do not hesitate to contact me. The office telephone contact is [phone]. This note is constructed in part using voice recognition software. While every effort has been made to ensure accuracy mycologist errors may have been included. Yours sincerely, Agueda Mckeon MD Scribe Plan - Not visible on output: Patient was informed and verbally consented to the use of an ambient scribe for clinic note documentation during this visit. Coding Level of Care Code Procedure Only Diagnoses Urinary frequency R35.0 Mixed stress and urge urinary incontinence N39.46 CPT Codes Cystoscopy - CPT: 80971-[id number] ([id number])
== END 2024-09-22 10:51 | disposition home or self-care (01) ==
LOC: HO.HUSH 08:50
PROVIDERS: PCP Internal Medicine; Visit Provider Urology
DX: N39.46 Mixed incontinence (principal); R35.0 Frequency of micturition
CPT/HCPCS: 52000

== ENCOUNTER → 2024-09-22 08:50 | Outpatient (BNVA) | payer OTHER, SELFPAY | PROVIDERS: PCP Internal Medicine; Visit Provider Urology | DX: R35.0 Frequency of micturition (principal); N39.46 Mixed incontinence | CPT/HCPCS: 52000; 81003 ==

== ENCOUNTER 2024-10-13 11:37 | Outpatient (AMB) | payer OTHER, SELFPAY ==
[2024-10-13 12:21] VITALS: BP 128/82; PULSE 85; RESP 15; TEMP 36.8; O2SAT 99; BMI 28.7
--- NOTE | 2024-10-13 12:21 | MHC.PC.OV ---
Vital Signs 10/13/24 12:21 Height 5 ft 4 in Weight 167 lb BMI 28.7 BP 128/82 Blood Pressure Location Rt brachial Position Sitting Respiration 15 Pulse 85 Pulse Source Pulse Oximeter Temp 98.2 F Temp Source Oral Pulse Oximetry (%) 99 Oxygen Delivery Method Room Air Intake Visit Reasons: 4month follow up Intake Note: Pt is here today for her 4mo. f/u also wants to speak to someone for her depression Allergies No Known Allergies Allergy (Verified 10/26/24 12:49) Medication List - Last Reconciled 10/13/24 by Awilda Vilchis MD atorvastatin 10 mg PO DAILY cholecalciferol (vitamin D3) 5,000 mcg PO BEDTIME diclofenac sodium 1% topical dicyclomine 20 mg PO BID docusate sodium 100 mg PO BID PRN gabapentin 100 - 200 mg PO BID PRN ipratropium bromide 2 sprays intranasal BID-TID PRN levocetirizine 5 mg PO DAILY PRN levothyroxine 25 mcg PO QAM mirabegron ER (Myrbetriq) 50 mg PO DAILY omeprazole 20 mg PO QAM prazosin 2 mg PO BID sertraline 50 mg PO DAILY Tobacco use date assessed: 10/13/24 Dental Screening Dental Screen Date: 10/13/24 Did you have a dental visit in the last 12 months?: No Did you have a dental problem in the last 6 months where you did not have access to dental care?: No Was dental information given to patient?: No HPI 4month follow up HPI Details 59 year-old lady with history of hypertension, hyperlipidemia, hypothyroidism, seasonal allergies, chronic GERD, and stress inncontinence here for her follow up visit . Has been taking her medicines as directed, but requesting referral to see a new therapist and psychiatrist. She goes to the [facility] in [place] but is not happy with the treatment she is getting there. 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 Brother No problems noted. Brother No problems noted. Brother No problems noted. Sister No problems noted. Sister No problems noted. Sister No problems noted. Son No problems noted. Daughter No problems noted. Daughter No problems noted. Daughter No problems noted. Social History Housing: Apartment Are you a primary senior care provider to a significant other at home: No Do you presently have visiting nurse or other home services: No Alcohol intake: never Patient Tobacco Use Status: Never used Tobacco e-Cigarette/Vaping Use: Never Used Second Hand Smoke Exposure: No service: No Current occupational status: unemployed Cognitive needs: No Hearing needs: No Vision needs: No Female Reproductive History Menstrual Age of Menarche: 14 Questionnaire PHQ-9 Over the last 2 weeks, how often have you been bothered by any of the following problems? 1. Little interest or pleasure in doing things: several days 2. Feeling down, depressed, or hopeless: more than half the days 3. Trouble falling or staying asleep, or sleeping too much: more than half the days 4. Feeling tired or having little energy: more than half the days 5. Poor appetite or overeating: several days 6. Feeling bad about yourself - or that you are a failure or have let yourself or your family down: several days 7. Trouble concentrating on things, such as reading the newspaper or watching television: several days 8. Moving or speaking so slowly that other people could have noticed. Or the opposite - being so fidgety or restless that you have been moving around a lot more than usual: not at all 9. Thoughts that you would be better off or of hurting yourself in some way: not at all Total score: 10 Depression Screening Interpretation: Positive (Currently goes to the [facility] requesting referral to a different psychiatrist/therapist) Depression Screening Follow-up: Existing condition, In treatment and Community Mental Health Worker F/U Depression Screening Done: Yes Source: Developed by Drs. Conner Flores, Abebe Mccloud and colleagues, with an educational jamia from [employer]. Thrive Questionnaire Date Thrive assessed: 10/13/24 I am a: Patient What is your living situation today?: I have a steady place to live Within the past 12 months, did the food you bought not last and you didn't have the money to get more?: Sometimes True Within the past 12 months, did you worry whether your food would run out before you got money to buy more?: Sometimes True Do you have trouble paying for medicines?: Yes Do you have trouble getting transportation to medical appointments?: I choose not to answer this question Do you have trouble paying your heating and electricity bill?: Yes Do you have trouble taking care of your child, family member or friend?: Yes Do you have trouble with day-to-day activities such as bathing, preparing meals, shopping, managing finances, etc.?: Yes Are you currently unemployed and looking for a job?: I choose not to answer this question Are you interested in more education?: I choose not to answer this question Currently or been in a relationship where the following occur: I choose not to answer THRIVE Score: 3 AUDIT C Alcohol Use Questionnaire (AUDIT-C) 1. How often do you have a drink containing alcohol?: Never Total Score: 0 CARLY-7 AMB Questionnaire CARLY-7 Date CARLY - 7 assessed: 10/13/24 Feeling nervous, anxious, or on edge: 1 = Several days Not being able to stop or control worryin = Several days Worrying too much about different things: 1 = Several days Trouble relaxin = Several days Being so restless that it is hard to sit still: 1 = Several days Becoming easily annoyed or irritable: 0 = Not at all Feeling afraid as if something awful might happen: 1 = Several days Total CARLY-7 score (0-4 normal; 5-9 mild; 10-14 moderate; 15-21 severe): 6 Source: Developed by Naya Page Kurt Kroenke and colleagues, with an educational jamia from [employer]. CARLY-7 Assessment Billing CARLY-7 Assessment Tool: CARLY-7 Assessment 78511 Review of Systems Const All systems reviewed & are unremarkable except as noted in HPI and below Reports no additional complaints Eyes Reports no additional complaints ENT Reports no additional complaints Card Reports no additional complaints Resp Reports no additional complaints GI Reports no additional complaints Reports as per HPI Musc Reports no additional complaints Skin/Breast Reports system reviewed and no additional complaints, except as documented Neuro Reports no additional complaints Psych Reports no additional complaints Endo Reports no additional complaints Ramiro/Lymph Reports no additional complaints Aller/Immun Reports no additional complaints Physical exam (Primary Care) Vital Signs: Last Vital Signs Temp 98.2 F 10/13/24 12:21 Pulse 85 10/13/24 12:21 Resp 15 10/13/24 12:21 BP 128/82 10/13/24 12:21 Pulse Ox 99 10/13/24 12:21 Oxygen Delivery Method Room Air 10/13/24 12:21 BMI result Body Mass Index 28.7 Tobacco/Smoking Status: Tobacco use Status Tobacco use date assessed 10/13/24 10/13/24 12:24 Patient Tobacco Use Status Never used Tobacco 10/13/24 12:24 e-Cigarette/Vaping Use Never Used 10/13/24 12:24 PHQ-9: PHQ-9 Score PHQ-9: Total score 10 10/13/24 12:48 Depression Screening Interpretation: Positive (Currently goes to the [facility] requesting referral to a different psychiatrist/therapist) Depression Screening Follow-up: Existing condition, In treatment and Community Mental Health Worker F/U Thrive Assessment: Date of Thrive Assessment Date Thrive assessed 10/13/24 10/13/24 12:24 Currently or been in a relationship where the following occur: I choose not to answer Const Other: Alert oriented x3, no acute distress noted, ambulatory with normal gait, accompanied by daughter who helps translate HENMT Ears: TM's normal bilaterally and EAC's normal General nose exam: Normal external nose present Face and sinus: Yes face symmetric Mouth: Normal oral and palatal mucosa present and moist mucous membranes Eyes General: appearance normal, both eyes and all related structures Neck Other: Supple, no thyromegaly or tenderness on palpation of thyroid gland, tender submandibular lymphadenopathy Resp Auscultation: clear to auscultation bilaterally Cardio Other: S1-S2 present regular rate and rhythm GI Palpation (GI): Soft to palpation, nontender, no guarding and no masses Auscultation: normal bowel sounds Skin General skin exam: no rashes or lesions noted Neuro General: gait normal, tone normal, moves all extremities, Normal light touch and pain sensation, no focal motor deficits and CN's II-XI intact bilaterally Extrem General: Yes full ROM, Yes no joint enlargement, Yes no pedal edema, Yes no calf tenderness and Yes normal gait Psych Appearance: grossly normal and well kempt Mental Status: mental status grossly normal Speech and movement: Normal speech and movement present Affect: normal affect Results Reviewed Results Reviewed: Name: Pili Mcdaniels Age/Sex: 58/F : 1965 Unit#: [id number] Attend Dr: Agueda Mckeon MD Re08/20/24 Status: DEP REF Location: [facility] Disch: SPEC : [id number] TOBIN: 08/20/24 STATUS: COMP REQ : [id number] RECD: 08/20/[address]: Awilda Vilchis MD COMP: 08/20/24-170 ENTERED: 08/20/24-[address]: Agueda Mckeon MD ORDERED: AST, ALT, Lipid Panel, Vitamin D 25-OH, Free T4, TSH Test Result Flag Reference AST (GOT) 27 5-31 U/L ALT (GPT) 14 0-31 U/L Triglyceride 102 <150 mg/dL Desirable Triglyceride: less than 150 mg/dL Borderline High Triglyceride 150-199 mg/dL High Triglyceride: 200-499 mg/dL Very High Triglyceride: greater than or equal to 5OO mg/dL Cholesterol 195 <200 mg/dL Desirable Cholesterol: less than 200 mg/dL Borderline High Cholesterol: 200-239 mg/dL High Cholesterol: greater than 239 mg/dL LDL Calculated 118 H <100 mg/dL Desirable LDL: less than 100 mg/dL Near Optimal/Above Optimal LDL: 110-129 mg/dL Borderline High LDL: 130-159 mg/dL High LDL: 160-189 mg/dL Very High LDL: greater than or equal to 190 mg/dL HDL 57 >40 mg/dL Desirable HDL: greater than 40 mg/dL Note: This HDL assay may give artificially low results in patients with liver disease. Vitamin D 25-OH 59.0 >30 ng/mL Health Based Reference Values* < 20 ng/mL Deficient 20-30 ng/mL Insufficient > 30 ng/mL Sufficient *iMlo MELLO. N Engl J Med. 2007;357:266-280 There is no well-established upper level of normal vitamin D levels. Some laboratories use 50 ng/mL as an upper limit of normal. However, toxicity is patient-dependent and may occur at any level. Careful correlation with the patient's presentation is necessary and, if there is concern for vitamin D toxicity, treatment should be considered irrespective of the serum level. Care must be taken in interpreting Vitamin D results from different laboratories and methodologies. Published data demonstrated that results from patients undergoing hemodialysis may show a negative bias when tested with various automated 25-OH vitamin D assays when compared to LC-MS/MS. When testing samples from patients whose predominant form of Vitamin D is Vitamin D2, such as patients receiving Vitamin D2 supplementation, results that are subtherapeutic should be confirmed with another method such as LC-MS/MS. Free T4 0.87 0.71-1.85 ng/dL TSH 3rd Gen. 3.03 0.32-4.0 uIU/mL Note: A sustained TSH level above 2.5 uIU/mL may warrant further investigation. 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 Environmental and seasonal allergies J30.89 Additional Codes CARLY-7 Assessment Billing - CARLY-7 Assessment Tool: CARLY-7 Assessment 14357 ([id number]) Assessment & Plan Assessment & Plan (1) Mixed stress and urge urinary incontinence: Code(s): N39.46 - Mixed incontinence Category: Medical Plan: Refilled Myrbetriq 50 mg 1 tablet daily (2) Dyslipidemia: Code(s): E78.5 - Hyperlipidemia, unspecified Category: Medical Plan: Continue atorvastatin 10 mg daily (3) Anxiety and depression: Comment: Currently being followed by Psychiatry and sees a therapist regularly Code(s): F41.9 - Anxiety disorder, unspecified; F32.9 - Major depressive disorder, single episode, unspecified Category: Medical Plan: Referred to [facility] for assistance in getting an appointment to see a new psychiatrist and therapist, not happy with [facility]. Was taking her sertraline every other day, advised to take half a tablet daily instead , until she sees her new psychiatrist. 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 (5) Essential hypertension: Code(s): I10 - Essential (primary) hypertension Category: Medical Plan: Blood pressure at goal of less than 130/80. Continue with prazosin Reinforced importance of following a low sodium diet, getting regular exercise, and lowering stress levels. Prazosin (6) Environmental and seasonal allergies: Code(s): J30.89 - Other allergic rhinitis Category: Medical Plan: Refill prescription for ipratropium bromide 2 sprays intranasal twice a day as needed, Medications: Changed From ipratropium bromide 2 sprays intranasal BID-TID PRN 30 mL 1RF for allergies To ipratropium bromide 2 sprays intranasal BID-TID PRN 30 mL 5RF for allergies Refilled levothyroxine 25 mcg PO QAM 90 tabs 1RF omeprazole 20 mg PO QAM 30 caps 3RF Discontinued levocetirizine Discontinued Reason: Patient no longer taking 5 mg PO DAILY PRN 30 tabs 5RF allergy symptoms R21 - Rash and other nonspecific skin eruption
--- OUTSIDE RECORDS SUMMARY | 2024-10-13 13:09 | XMS_ITS | Clinical Summary ---
Author Organization [facility] it Address [address] [place] [address] Care Team Providers Care Metal Fabricating Inspector Name Role Phone Unavailable Primary Care Provider [...]
== END 2024-10-13 13:35 | disposition home or self-care (01) ==
LOC: HO.HMCC 11:38
PROVIDERS: PCP Internal Medicine; Visit Provider Internal Medicine
DX: N39.46 Mixed incontinence (principal); E78.5 Hyperlipidemia, unspecified; F41.9 Anxiety disorder, unspecified; F32.9 Major depressive disorder, single episode, unspecified; E03.8 Other specified hypothyroidism; E06.3 Autoimmune thyroiditis; I10 Essential (primary) hypertension; J30.89 Other allergic rhinitis

== ENCOUNTER → 2024-10-13 11:37 | Outpatient (BNVA) | payer OTHER, SELFPAY | PROVIDERS: PCP Internal Medicine; Visit Provider Internal Medicine | DX: N39.46 Mixed incontinence (principal); E78.5 Hyperlipidemia, unspecified; F41.9 Anxiety disorder, unspecified; F32.9 Major depressive disorder, single episode, unspecified; E03.8 Other specified hypothyroidism; E06.3 Autoimmune thyroiditis; I10 Essential (primary) hypertension; J30.89 Other allergic rhinitis; Z79.899 Other long term (current) drug therapy | CPT/HCPCS: 96127; 99212 ==

== ENCOUNTER 2024-12-25 10:52 | Outpatient (REF) | payer OTHER, SELFPAY ==
--- OUTSIDE RECORDS SUMMARY | 2024-12-25 11:01 | XMS_ITS | Clinical Summary ---
Author Organization [facility] it Address [address] [place] [address] Care Team Providers Care Morgue Librarian Name Role Phone Unavailable Primary Care Provider [...] 2) 2016 Colorectal Cancer Screening: Colonoscopy 05/01/2022 HIV Screening 05/01/2022 Hepatitis C Screening 05/01/2022 Social Influencers of Health Screening 05/01/2022 COVID-19 Vaccine (1 - 2023-2 5 season) 2024 Depression Screening 06/03/2024 Influenza Vaccine (#1) 2025 HIB Vaccines Aged Out No longer [...]
--- OUTSIDE RECORDS SUMMARY | 2024-12-25 11:01 | XMS_ITS | Clinical Summary ---
Author Organization [facility] Address [address] [place] [address] Care Team Providers Care Materials Manager Name Role Phone Awilda Fang CRIME SCENE PHOTOGRAPHER Primary Care Provider [phone] Source Comments PLEASE NOTE, if this patient [...] 80 02/26/2017 9:36 AM EDT Temperature 36.6 C (97.8 F) 02/26/2017 9:36 AM EDT Respiratory Rate 16 02/26/2017 9:36 AM EDT Oxygen Saturation 98% 09/28/2016 10:51 AM EDT Inhaled Oxygen Concentration - - Weight 80 kg (176 lb 4.8 oz) 02/26/2017 9:36 AM EDT Height 162.6 cm (5' 4 ) 02/26/2017 9:36 AM EDT Body Mass Index 30.26 02/26/2017 9:36 AM EDT Plan of Treatment Not on file Insurance [facility] [id number] [place] [address] [place] [address] [facility] NET DENTAL [facility] Care Teams Materials Manager Relationship Specialty Start Date End Date Awilda Fang FNP [address] [place] [id number] PCP - General Internal Medicine 05/16/19
--- OUTSIDE RECORDS SUMMARY | 2024-12-25 11:01 | XMS_ITS | Clinical Summary ---
Author Organization [facility] Address [address] [place] [address] Phone Care Team Providers Care Metal Polisher And Buffer Apprentice Name Role Phone Awilda Vilchis MD Primary Care Provider Allergies No known active allergies Medications gabapentin (NEURONTIN) 100 MG capsule Take 100 mg by mouth 3 (three) times a day. 4 Active diclofenac sodium (VOLTAREN) 1 % Gel APPLY 1 APPLICATION ON THE SKIN TWICE A DAY NEEDED APPLY 2G 4 Active ipratropium (ATROVENT) 21 mcg (0.03 %) nasal spray 1 spray by Nasal route 2 (two) times a day. 4 Active dicyclomine (BENTYL) 20 mg tablet TAKE 1 TABLET ORALLY 2 TIMES A DAY 4 Active cyclobenzaprine (FLEXERIL) 10 MG tablet TAKE 1 TABLET BY MOUTH DAILY NEEDED FOR MUSCLE SPASMS. 4 Active ondansetron (ZOFRAN) 4 MG tablet Take 1 tablet (4 mg total) by mouth every 8 (eight) hours as needed for nausea. 30 tablet 3 4 Active oxyCODONE-aceta minophen (PERCOCET) 5-325 mg per tablet Take 1 tablet by mouth every 4 (four) hours as needed for pain (specific location in comments). Partial fill ok 30 tablet 4 Active ibuprofen (ADVIL,MOTRIN) 200 MG tablet Take 2 tablets (400 mg total) by mouth every 8 (eight) hours as needed for pain (specific location in comments). 60 tablet 4 Active Active Problems Problem Noted Date Diagnosed Date Macromastia 02/12/2024 Chronic neck and back pain 02/12/2024 Social History Tobacco Use Types Packs/Day Years Used Date Smoking Tobacco: Never Smokeless Tobacco: Never Tobacco Cessation:Counseling Given: Not Answered Alcohol Use Standard Drinks/Week Comments Never 0 (1 standard drink = 0.6 oz pur e alcohol) Education Answer Date Recorded Are you interested in more education? Not on trino e 10/15/2023 Are you concerned about learning? Not on file 10/15/2023 No 10/15/2023 No 10/15/2023 Digital Access Answer Date Recorded No 10/15/2023 No 10/15/2023 Reliable internet access at home? Not on file 10/15/2023 Device with a working camera? Not on file Intimate Partner Violence Answer Date R ecorded Are you denied basic needs s uch as food, clothing, or medical care? No 02/27/2024 In the past 12 months have y ou been in a relationship with a person who hurts, threatens, or tries to control you? No 02/27/2024 Are you denied basic needs s uch as food, clothing, or medical care? No 02/27/2024 In the past 12 months have y ou been in a relationship with a person who hurts, threatens, or tries to control you? No 02/27/2024 Comments No Sex and Gender Information Value Date Recorded Sex Assigned at Not on file Legal Sex Female 10:37 AM EDT Gender Identity Not on file Sexual Orientation Not on file Last Filed Vital Signs Vital Sign Reading Time Taken Comments Blood Pressure 126/64 02/27/2024 3:48 PM EDT Pulse 106 02/27/2024 1:00 PM EDT Temperature 36.2 C (97.2 F) 02/27/2024 12:45 PM EDT Respiratory Rate 9 02/27/2024 1:00 PM EDT Oxygen Saturation 94% 02/27/2024 3:54 PM EDT Inhaled Oxygen Concentration - - Weight 78.9 kg (174 lb) 02/27/2024 7:30 AM EDT Height 157.5 cm (5' 2 ) 02/27/2024 7:30 AM EDT Body Mass Index 31.83 02/27/2024 7:30 AM EDT Plan of Treatment Health Maintenance Due Date Last Done Comments LIPID PANEL 1965 DEPRESSION SCREENING 1978 HEPATITIS C SCREENING 1984 HIV ONE-TIME SCREENING (18-6 5 YEARS) 1984 PAP SMEAR 09/04/1987 SCREENING FOR DIABETES 2001 MAMMOGRAM 2006 COLOGUARD 09/04/2011 COLONOSCOPY 09/04/2011 COLORECTAL CANCER SCREENING 09/04/2011 FIT TEST 09/04/2011 FOBT 09/04/2011 SIGMOIDOSCOPY 09/04/2011 VIRTUAL COLONOSCOPY 09/04/2011 PNEUMOCOCCAL VACCINES (50+ years) (1 of 1 - PCV) 2016 ZOSTER VACCINES (1 of 2) 2016 COVID-19 VACCINE (3 - 2023-2 5 season) 2024 04/06/2021, 03/16/2021 Adult Td,Tdap Booster 04/23/2028 04/23/2018 , 01/06/2013, 12/02/2012 SMOKING STATUS SCREENING (On ce After 26 Yrs) Completed 02/27/2024 HEPATITIS A VACCINES Aged Out No long er eligible based on patient's age to complete this topic HIB VACCINES Aged Out No longer eligi ble based on patient's age to complete this topic MENINGOCOCCAL VACCINES (ACWY) Aged Out No longer eligible based on patient's age to complete this topic MENINGOCOCCAL VACCINES (B) Aged Out N o longer eligible based on patient's age to complete this topic Medical Devices Not on file [place] [address] [address] [place] [place] [address] [place] [address] [place] [address] [place] [place] [address] [facility] ACO Advance Directives For more information, please contact: [phone] (9AM - 5PM [facility], Saturday-Saturday) * Full Code (Latest Code Status on File) Date Activated Date Inactivated Comments 02/27/2024 7:19 AM Question Answer Comments Code Status Confirmed With: Patient Care Teams Metal Polisher And Buffer Apprentice Relationship Specialty Start Date End Date Awilda Vilchis MD [facility] [place] [address] [place] [address] PCP - General Internal Medicine 10/15/23 Additional Source Comments The information contained in this document represents components of the legal health record. It is not the complete legal health record.[facility]
[2024-12-25 13:07] LABS: Hematocrit 37.3 % (37.0-47.0); Hemoglobin 12.0 g/dl (12.0-16.0)
[2024-12-25 13:28] LABS: Alanine Aminotransferase 12 U/L (0-31); Anion Gap 10 (12-20); Aspartate Amino Transferase 20 U/L (5-31); Blood Urea Nitrogen 13 mg/dL (9-16); Calcium 9.5 mg/dL (8.4-10.2); Carbon Dioxide 25 mmol/L (22-29); Chloride 110 mmol/L (96-108); Cholesterol 178 mg/dL (<200); Estimated Glomerular Filt Rate > 60; HDL Cholesterol 50 mg/dL (>40); Potassium 4.4 mmol/L (3.3-5.1); Sodium 141 mmol/L (135-145); Triglycerides 86 mg/dL (<150)
[2024-12-25 13:46] LABS: Free T4 (Free Thyroxine) 0.79 ng/dL (0.71-1.85); Thyroid Stimulating Hormone 3.08 uIU/mL (0.32-4.0)
== END 2024-12-25 10:53 | disposition home or self-care (01) ==
LOC: HO.HMGCLDS 10:52
PROVIDERS: PCP Internal Medicine; Visit Provider Internal Medicine
DX: I10 Essential (primary) hypertension (principal); E06.3 Autoimmune thyroiditis; K21.9 Gastro-esophageal reflux disease without esophagitis; K64.4 Residual hemorrhoidal skin tags; E78.5 Hyperlipidemia, unspecified
CPT/HCPCS: 36415; 80048; 80061; 82306; 84439; 84443; 84450; 84460; 85014; 85018

== ENCOUNTER 2024-12-28 12:03 | Outpatient (AMB) | payer OTHER, SELFPAY ==
[2024-12-28 12:09] VITALS: BP 130/76; PULSE 86; O2SAT 96; BMI 29.5
--- NOTE | 2024-12-28 12:09 | MHC.PC.OV ---
Vital Signs 12/28/24 12:09 Height 5 ft 4 in Weight 172 lb 2 oz BMI 29.5 BP 130/76 Blood Pressure Location Lt brachial Position Sitting Pulse 86 Pulse Source Pulse Oximeter Pulse Oximetry (%) 96 Oxygen Delivery Method Room Air Intake Visit Reasons: Annual PE Milk Processing Worker Required: No Accompanied by: Self / Same As Patient Allergies No Known Allergies Allergy (Verified 12/28/24 16:08) Medication List - Last Reconciled 12/28/24 by Awilda Vilchis MD atorvastatin 10 mg PO DAILY cholecalciferol (vitamin D3) 5,000 mcg PO BEDTIME diclofenac sodium 1% topical dicyclomine 20 mg PO BID docusate sodium 100 mg PO BID PRN gabapentin 100 - 200 mg PO BID PRN ipratropium bromide 2 sprays intranasal BID-TID PRN levothyroxine 25 mcg PO QAM mirabegron ER (Myrbetriq) 50 mg PO DAILY omeprazole 20 mg PO QAM prazosin 2 mg PO BID sertraline 50 mg PO DAILY Tobacco use date assessed: 10/13/24 Dental Screening Dental Screen Date: 10/13/24 HPI Annual PE HPI Details - The patient is a 59-year-old female presenting for a physical examination and management of chronic conditions. - Dyslipidemia: Managed with atorvastatin 10 mg daily, with recent lipid panel showing improvement In lipid levels. - Anxiety and Depression: Managed with sertraline, though not taken daily due to dizziness; under care of a therapist and psychiatrist. - Urinary Incontinence: Managed with mirabegron, followed by [facility] neurolog[facility] - Constipation: Managed with dicyclomine to aid bowel movements, currently being seen at [facility] GI clinic. - Vitamin D Deficiency: Taking vitamin D3, with recommendation to reduce dosage due to increased levels. - Preventative Care: Mammogram due next month; recent colonoscopy showed diverticulosis andhemorrhoids. 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 Brother No problems noted. Brother No problems noted. Brother No problems noted. Sister No problems noted. Sister No problems noted. Sister No problems noted. Son No problems noted. Daughter No problems noted. Daughter No problems noted. Daughter No problems noted. Social History Housing: Apartment Are you a primary child care aide to a significant other at home: No Do you presently have visiting nurse or other home services: No Alcohol intake: never Patient Tobacco Use Status: Never used Tobacco e-Cigarette/Vaping Use: Never Used Second Hand Smoke Exposure: No service: No Current occupational status: unemployed Cognitive needs: No Hearing needs: No Vision needs: No Female Reproductive History Menstrual Age of Menarche: 14 Questionnaire Thrive Questionnaire Date Thrive assessed: 12/28/24 I am a: Patient What is your living situation today?: I have a place to live, but I am worried about losing it in the future Within the past 12 months, did the food you bought not last and you didn't have the money to get more?: Sometimes True Within the past 12 months, did you worry whether your food would run out before you got money to buy more?: Sometimes True Do you have trouble paying for medicines?: Yes Do you have trouble getting transportation to medical appointments?: I choose not to answer this question Do you have trouble paying your heating and electricity bill?: Yes Do you have trouble taking care of your child, family member or friend?: Yes Do you have trouble with day-to-day activities such as bathing, preparing meals, shopping, managing finances, etc.?: Yes Are you currently unemployed and looking for a job?: I choose not to answer this question Are you interested in more education?: I choose not to answer this question Currently or been in a relationship where the following occur: I choose not to answer THRIVE Score: 4 AUDIT C Alcohol Use Questionnaire (AUDIT-C) 1. How often do you have a drink containing alcohol?: Never 3. How often do you have six or more drinks on one occasion?: Never Total Score: 0 Score Reviewed/Action Taken: Yes CARLY-7 AMB Questionnaire CARLY-7 Date CARLY - 7 assessed: 12/28/24 Feeling nervous, anxious, or on edge: 1 = Several days Not being able to stop or control worryin = Several days Worrying too much about different things: 1 = Several days Trouble relaxin = Several days Being so restless that it is hard to sit still: 1 = Several days Becoming easily annoyed or irritable: 0 = Not at all Feeling afraid as if something awful might happen: 1 = Several days Total CARLY-7 score (0-4 normal; 5-9 mild; 10-14 moderate; 15-21 severe): 6 Source: Developed by Drs. Conner Flores, Naya Beasley, Abebe Martinez and colleagues, with an educational jamia from [employer]. CARLY-7 Assessment Billing CARLY-7 Assessment Tool: CARLY-7 Assessment 95815 (Currently sees psychiatrist and therapist) Review of Systems Const All systems reviewed & are unremarkable except as noted in HPI and below Reports no additional complaints Eyes Reports no additional complaints ENT Reports no additional complaints Card Reports no additional complaints Resp Reports no additional complaints GI Reports no additional complaints Reports as per HPI Musc Reports no additional complaints Skin/Breast Reports system reviewed and no additional complaints, except as documented Neuro Reports no additional complaints Psych Reports no additional complaints Endo Reports no additional complaints Ramiro/Lymph Reports no additional complaints Aller/Immun Reports no additional complaints Physical exam (Primary Care) Vital Signs: Last Vital Signs Pulse 86 12/28/24 12:09 BP 130/76 12/28/24 12:09 Pulse Ox 96 12/28/24 12:09 Oxygen Delivery Method Room Air 12/28/24 12:09 BMI result Body Mass Index 29.5 Tobacco/Smoking Status: Tobacco use Status Tobacco use date assessed 10/13/24 12/28/24 12:09 Patient Tobacco Use Status Never used Tobacco 12/28/24 12:09 e-Cigarette/Vaping Use Never Used 12/28/24 12:09 Thrive Assessment: Date of Thrive Assessment Date Thrive assessed 12/28/24 12/28/24 12:24 Currently or been in a relationship where the following occur: I choose not to answer Const Other: Alert oriented x3, no acute distress noted, ambulatory with normal gait, accompanied by daughter who helps translate HENMT Ears: TM's normal bilaterally and EAC's normal General nose exam: Normal external nose present Face and sinus: Yes face symmetric Mouth: Normal oral and palatal mucosa present and moist mucous membranes Eyes General: appearance normal, both eyes and all related structures Neck Other: Supple, no thyromegaly or tenderness on palpation of thyroid gland Chest Other: Patient declined exam Resp Auscultation: clear to auscultation bilaterally Cardio Other: S1-S2 present regular rate and rhythm GI Palpation (GI): Soft to palpation, nontender, no guarding and no masses Auscultation: normal bowel sounds General: Yes no CVA tenderness and Yes deferred (Sees [facility]) Back/Spine/Pelvis Back: no CVA tenderness Skin General skin exam: no rashes or lesions noted Neuro General: gait normal, tone normal, moves all extremities, Normal light touch and pain sensation, no focal motor deficits and CN's II-XI intact bilaterally Extrem General: Yes full ROM, Yes no joint enlargement, Yes no pedal edema, Yes no calf tenderness and Yes normal gait Psych Appearance: grossly normal and well kempt Mental Status: mental status grossly normal Speech and movement: Normal speech and movement present Affect: normal affect Results Reviewed Results Reviewed: Name: Pili Mcdaniels Age/Sex: 59/F : 1965 Unit#: [id number] Attend Dr: Awilda Vilchis MD Re12/25/24 Status: DEP REF Location: [facility] Disch: SPEC : [id number] TOBIN: 12/25/24 STATUS: COMP REQ : [id number] RECD: 12/25/[address]: Awilda Vilchis MD COMP: 12/25/24 ENTERED: 12/25/[address]: ORDERED: Met Prof Fast, AST, ALT, Lipid Panel, Vitamin D 25-OH, Free T4, TSH Test Result Flag Reference Sodium 141 135-145 mmol/L Potassium 4.4 3.3-5.1 mmol/L CL 110 H 96-108 mmol/L CO2 25 22-29 mmol/L Gap 10 L 12-20 BUN 13 9-16 mg/dL Creat 0.91 0.5-1.4 mg/dL eGFR > 60 Chronic Kidney Disease: Estimated GFR < 60 mL/min/1.73m2 Severe Kidney Disease: Estimated GFR < 15 mL/min/1.73m2 FBS 95 60-99 mg/dL CA 9.5 8.4-10.2 mg/dL AST (GOT) 20 5-31 U/L ALT (GPT) 12 0-31 U/L Triglyceride 86 <150 mg/dL Desirable Triglyceride: less than 150 mg/dL Borderline High Triglyceride 150-199 mg/dL High Triglyceride: 200-499 mg/dL Very High Triglyceride: greater than or equal to 5OO mg/dL Cholesterol 178 <200 mg/dL Desirable Cholesterol: less than 200 mg/dL Borderline High Cholesterol: 200-239 mg/dL High Cholesterol: greater than 239 mg/dL LDL Calculated 111 H <100 mg/dL Desirable LDL: less than 100 mg/dL Near Optimal/Above Optimal LDL: 110-129 mg/dL Borderline High LDL: 130-159 mg/dL High LDL: 160-189 mg/dL Very High LDL: greater than or equal to 190 mg/dL HDL 50 >40 mg/dL Desirable HDL: greater than 40 mg/dL Note: This HDL assay may give artificially low results in patients with liver disease. Vitamin D 25-OH 61.8 >30 ng/mL Health Based Reference Values* < 20 ng/mL Deficient 20-30 ng/mL Insufficient > 30 ng/mL Sufficient *Milo MELLO. N Engl J Med. 2007;357:266-280 There is no well-established upper level of normal vitamin D levels. Some laboratories use 50 ng/mL as an upper limit of normal. However, toxicity is patient-dependent and may occur at any level. Careful correlation with the patient's presentation is necessary and, if there is concern for vitamin D toxicity, treatment should be considered irrespective of the serum level. Care must be taken in interpreting Vitamin D results from different laboratories and methodologies. Published data demonstrated that results from patients undergoing hemodialysis may show a negative bias when tested with various automated 25-OH vitamin D assays when compared to LC-MS/MS. When testing samples from patients whose predominant form of Vitamin D is Vitamin D2, such as patients receiving Vitamin D2 supplementation, results that are subtherapeutic should be confirmed with another method such as LC-MS/MS. Free T4 0.79 0.71-1.85 ng/dL TSH 3rd Gen. 3.08 0.32-4.0 uIU/mL Note: A sustained TSH level above 2.5 uIU/mL may warrant further investigation. 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 Irritable bowel syndrome with constipation K58.1 Anxiety and depression F41.9; F32.9 Arthralgia of multiple joints M25.50 Dyslipidemia E78.5 Mixed stress and urge urinary incontinence N39.46 Environmental and seasonal allergies J30.89 Additional Codes CARLY-7 Assessment Billing - CARLY-7 Assessment Tool: CARLY-7 Assessment 74946 ([id number]) Assessment & Plan Assessment & Plan (1) Annual visit for general adult medical examination with abnormal findings: Code(s): Z00.01 - Encounter for general adult medical examination with abnormal findings (2) Essential hypertension: Code(s): I10 - Essential (primary) hypertension Category: Medical (3) Chronic GERD: Code(s): K21.9 - Gastro-esophageal reflux disease without esophagitis Category: Medical (4) 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: Code(s): E03.8 - Other specified hypothyroidism; E06.3 - Autoimmune thyroiditis Category: Medical (5) Irritable bowel syndrome with constipation: Code(s): K58.1 - Irritable bowel syndrome with constipation Category: Medical (6) Anxiety and depression: Comment: Currently being followed by Psychiatry and sees a therapist regularly Code(s): F41.9 - Anxiety disorder, unspecified; F32.9 - Major depressive disorder, single episode, unspecified Category: Medical (7) Arthralgia of multiple joints: Code(s): M25.50 - Pain in unspecified joint Category: Medical (8) Dyslipidemia: Code(s): E78.5 - Hyperlipidemia, unspecified Category: Medical (9) Mixed stress and urge urinary incontinence: Code(s): N39.46 - Mixed incontinence Category: Medical (10) Environmental and seasonal allergies: Code(s): J30.89 - Other allergic rhinitis Category: Medical Plan The patient will continue atorvastatin 10 mg daily for dyslipidemia management, with regular monitoring of lipid levels to ensure they remain within normal limits. For anxiety and depression, the patient is advised to maintain regular appointments with her therapist and psychiatrist, and to adhere to the prescribed sertraline regimen, adjusting as necessary to minimize dizziness. Urinary incontinence will continue to be managed with mirabegron, and has an appointment for follow-up with [facility] urology scheduled already. Constipation management includes the continued use of dicyclomine, with an emphasis on dietary adjustments to improve bowel regularity. The patient is advised to reduce vitamin D3 supplementation to 2000 IU daily due to elevated levels, and to continue monitoring. Preventative care includes scheduling a mammogram next month, Up-to-date with her screening colonoscopy, due again in . Patient does not want to get any vaccines. Patient was informed and verbally consented to the use of an ambient scribe for clinic note documentation during this visit. Orders: Orders Thyroid Stimulating Hormone 06/03/25 E03.8 - Other specified hypothyroidism, E06.3 - Autoimmune thyroiditis, E78.5 - Hyperlipidemia, unspecified, I10 - Essential (primary) hypertension, J30.89 - Other allergic rhinitis, K21.9 - Gastro-esophageal reflux disease without esophagitis, K58.1 - Irritable bowel syndrome with constipation, M25.50 - Pain in unspecified joint, N39.46 - Mixed incontinence Lipid Panel 06/03/25 E03.8 - Other specified hypothyroidism, E06.3 - Autoimmune thyroiditis, E78.5 - Hyperlipidemia, unspecified, I10 - Essential (primary) hypertension, J30.89 - Other allergic rhinitis, K21.9 - Gastro-esophageal reflux disease without esophagitis, K58.1 - Irritable bowel syndrome with constipation, M25.50 - Pain in unspecified joint, N39.46 - Mixed incontinence Aspartate Amino Transferase 06/03/25 E03.8 - Other specified hypothyroidism, E06.3 - Autoimmune thyroiditis, E78.5 - Hyperlipidemia, unspecified, I10 - Essential (primary) hypertension, J30.89 - Other allergic rhinitis, K21.9 - Gastro-esophageal reflux disease without esophagitis, K58.1 - Irritable bowel syndrome with constipation, M25.50 - Pain in unspecified joint, N39.46 - Mixed incontinence Alanine Aminotransferase 06/03/25 E03.8 - Other specified hypothyroidism, E06.3 - Autoimmune thyroiditis, E78.5 - Hyperlipidemia, unspecified, I10 - Essential (primary) hypertension, J30.89 - Other allergic rhinitis, K21.9 - Gastro-esophageal reflux disease without esophagitis, K58.1 - Irritable bowel syndrome with constipation, M25.50 - Pain in unspecified joint, N39.46 - Mixed incontinence Basic Metabolic Panel Fasting 06/03/25 E03.8 - Other specified hypothyroidism, E06.3 - Autoimmune thyroiditis, E78.5 - Hyperlipidemia, unspecified, I10 - Essential (primary) hypertension, J30.89 - Other allergic rhinitis, K21.9 - Gastro-esophageal reflux disease without esophagitis, K58.1 - Irritable bowel syndrome with constipation, M25.50 - Pain in unspecified joint, N39.46 - Mixed incontinence Free T4 (Free Thyroxine) 06/03/25 E03.8 - Other specified hypothyroidism, E06.3 - Autoimmune thyroiditis, E78.5 - Hyperlipidemia, unspecified, I10 - Essential (primary) hypertension, J30.89 - Other allergic rhinitis, K21.9 - Gastro-esophageal reflux disease without esophagitis, K58.1 - Irritable bowel syndrome with constipation, M25.50 - Pain in unspecified joint, N39.46 - Mixed incontinence Medications: Refilled dicyclomine 20 mg PO BID 180 tabs 4RF atorvastatin 10 mg PO DAILY 90 tabs 3RF omeprazole 20 mg PO QAM 30 caps 3RF
--- OUTSIDE RECORDS SUMMARY | 2024-12-28 13:06 | XMS_ITS | Clinical Summary ---
Author Organization [facility] Address [address] [place] [address] Phone Care Team Providers Care Cooker Pie Filling Name Role Phone Awilda Vilchis MD Primary [...] topic Medical Devices Not on file [place] [address] [address] [place] [address] [place] [address] [place] [address] [place] [address] [place] [address] [place] [address] ACO [facility] ACO Advance Directives For more information, please contact: [phone] (9AM - 5PM [facility], Saturday-Saturday) * Full Code (Latest Code Status on File) Date Activated Date Inactivated Comments 02/27/2024 7:19 AM Question Answer Comments Code Status Confirmed With: Patient Care Teams Cooker Pie Filling Relationship Specialty Start Date End Date Awilda Vilchis MD [facility] [place] [address] PCP - General Internal Medicine 10/15/23 Additional Source Comments The information contained in this document represents components of the legal health record. It is not the complete legal health record.[facility]
--- OUTSIDE RECORDS SUMMARY | 2024-12-28 13:06 | XMS_ITS | Clinical Summary ---
Author Organization [facility] Address [address] [place] [address] Care Team Providers Care Sock Examiner Name Role Phone Awilda Fang ELECTRICAL DEVELOPMENT ENGINEER Primary Care Provider Source Comments PLEASE NOTE, if this patient [...] Plan of Treatment Not on file Insurance [facility] [id number] [place] [address] [place] [address] [facility] NET DENTAL [facility] DENTAL Care Teams Sock Examiner Relationship Specialty Start Date End Date Awilda Fang FNP [address] [place] [id number] PCP - General Internal Medicine 05/16/19
--- OUTSIDE RECORDS SUMMARY | 2024-12-28 13:06 | XMS_ITS | Clinical Summary ---
Author Organization [facility] it Address [address] [place] [address] Care Team Providers Care Medical Recruiter Name Role Phone Unavailable Primary Care Provider [...]
== END 2024-12-28 13:42 | disposition home or self-care (01) ==
LOC: HO.HMCC 12:03
PROVIDERS: PCP Internal Medicine; Visit Provider Internal Medicine
DX: Z00.01 Encounter for general adult medical examination with abnormal findings (principal); I10 Essential (primary) hypertension; K21.9 Gastro-esophageal reflux disease without esophagitis; E03.8 Other specified hypothyroidism; E06.3 Autoimmune thyroiditis; K58.1 Irritable bowel syndrome with constipation; F41.9 Anxiety disorder, unspecified; F32.9 Major depressive disorder, single episode, unspecified; M25.50 Pain in unspecified joint; E78.5 Hyperlipidemia, unspecified; N39.46 Mixed incontinence; J30.89 Other allergic rhinitis

== ENCOUNTER → 2024-12-28 12:03 | Outpatient (BNVA) | payer OTHER, SELFPAY | PROVIDERS: PCP Internal Medicine; Visit Provider Internal Medicine | DX: Z00.01 Encounter for general adult medical examination with abnormal findings (principal); F41.9 Anxiety disorder, unspecified; F32.A Depression, unspecified; K59.00 Constipation, unspecified; E55.9 Vitamin D deficiency, unspecified; I10 Essential (primary) hypertension; K21.9 Gastro-esophageal reflux disease without esophagitis; E03.8 Other specified hypothyroidism; K58.1 Irritable bowel syndrome with constipation; F32.9 Major depressive disorder, single episode, unspecified; M25.50 Pain in unspecified joint; E78.5 Hyperlipidemia, unspecified; N39.46 Mixed incontinence; J30.89 Other allergic rhinitis; Z79.899 Other long term (current) drug therapy | CPT/HCPCS: 96127; 99396 ==

== ENCOUNTER 2025-02-26 10:14 | Outpatient (AMB) | payer OTHER, SELFPAY ==
--- NOTE | 2025-02-26 10:33 | A.OFFVIS_ITS ---
Intake Visit Reasons: 6M follow up Intake Note: Patient is present for a 6m follow up Urology Med: None Antibiotic Allergy: None Blood Thinner: None PVR:0ml Able Bodied Watchman Services: Able Bodied Watchman Offered & Declined Allergies No Known Allergies Allergy (Verified 02/26/25 10:33) HPI Comments Details: 02/26/25--the patient is a 59-year-old female she is here with her daughter who interprets for her she has been evaluated due to microscopic hematuria including a renal ultrasound in August of this year and an office cystoscopy in 09/22/2024 no suspicious renal lesions ultrasound was normal bladder evaluation with cystoscopy no suspicious bladder lesions the patient had urinary symptoms of overactive bladder and was prescribed Myrbetriq 50 mg daily. History of Present Illness The patient is a 59-year-old female presenting with microscopic hematuria and overactive bladder symptoms. Microscopic hematuria was identified during routine evaluation, with no significant changes noted over time. The patient underwent a renal ultrasound in August and an office cystoscopy in September, both of which showed no suspicious lesions. No evidence of malignance at this time. The patient also reports symptoms consistent with overactive bladder, for which she was prescribed Myrbetriq 50 mg daily. She has been adherent to the medication, which has helped manage her symptoms effectively. Results - Renal ultrasound: 08/20/24--No suspicious renal lesions - Cystoscopy: 09/22/24--No suspicious bladder lesions Plan 1. Microscopic Hematuria - Continue monitoring with annual follow-up unless symptoms worsen. - No further intervention required at this time as previous evaluations were normal. 2. Overactive Bladder - Continue Myrbetriq 50 mg daily, refill for 90 days. - Monitor for any new symptoms such as burning with urination or signs of urinary tract infection. 09/22/24--Here for office cystoscopy due to microscopic hematuria. UA leuk neg, blood 1+. She is prescribed myrbetriq 50 mg daily for OAB symptoms. Urinary Symptoms Review - Bladder spasms and urgency Cystoscopy Findings: No suspicious bladder lesions, Bladder wall thickening observed in diagnostic procedure Results - Renal Ultrasound (August 20, 2024): Normal findings; kidneys normal, negative for stones or lesions - Urinary test: Microscopic hematuria detected PFSH Medical History Environmental and seasonal allergies Uterine fibroid Stress incontinence Cervicalgia Discolored nails Dyslipidemia External hemorrhoid Arthralgia of multiple joints Anxiety and depression Vitamin D deficiency Irritable bowel syndrome with constipation Varicose vein of leg Sensory hearing loss, bilateral 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 Brother No problems noted. Brother No problems noted. Brother No problems noted. Sister No problems noted. Sister No problems noted. Sister No problems noted. Son No problems noted. Daughter No problems noted. Daughter No problems noted. Daughter No problems noted. Social History Housing: Apartment Are you a primary health care specialist to a significant other at home: No Do you presently have visiting nurse or other home services: No Alcohol intake: never Patient Tobacco Use Status: Never used Tobacco e-Cigarette/Vaping Use: Never Used Second Hand Smoke Exposure: No service: No Current occupational status: unemployed Cognitive needs: No Hearing needs: No Vision needs: No Female Reproductive History Menstrual Age of Menarche: 14 Review of Systems Const All systems reviewed & are unremarkable except as noted in HPI and below Reports no additional complaints Eyes Reports no additional complaints ENT Reports no additional complaints Card Reports no additional complaints Resp Reports no additional complaints GI Reports no additional complaints Reports as per HPI Musc Reports no additional complaints Skin/Breast Reports system reviewed and no additional complaints, except as documented Neuro Reports no additional complaints Psych Reports no additional complaints Endo Reports no additional complaints Ramiro/Lymph Reports no additional complaints Aller/Immun Reports no additional complaints Office Procedures Post Void Residual Post Residual Void Post Void Residual (PVR): 0 [id number]-Iglx Void Residual by ultrasound Results AMB Urinalysis, Automated UA Leukoctes 0 Edouard/uL Last Edit by Ruby Gutierrez on 02/26/25 16:01 UA Nitrite Negative Last Edit by Ruby Gutierrez on 02/26/25 16:01 UA Urobilinogen 3.5 mg/dL Last Edit by Ruby Gutierrez on 02/26/25 16:01 UA Protein 0 mg/dL Last Edit by Ruby Gutierrez on 02/26/25 16:01 UA pH 6.0 Last Edit by Ruby Gutierrez on 02/26/25 16:01 UA Blood 80 Jacinto/uL Last Edit by Ruby Matt on 02/26/25 16:01 UA Specific [place] 1.015 Last Edit by Ruby Gutierrez on 02/26/25 16:01 UA Ketone Negative Last Edit by Ruby Gutierrez on 02/26/25 16:01 UA Bilirubin 0 mg/dL Last Edit by Ruby Gutierrez on 02/26/25 16:01 UA Glucose 0 mg/dL Last Edit by Ruby Gutierrez on 02/26/25 16:01 Results Reviewed Results Reviewed: Laboratory Last Values Urine pH (Auto) 6.0 02/26/25 12:06 Specific [place] (Auto) 1.015 02/26/25 12:06 Urine Protein (Auto) 0 mg/dL 02/26/25 12:06 Glucose (UA)(Auto) 0 mg/dL 02/26/25 12:06 Urine Ketones (Auto) Negative 02/26/25 12:06 Urine Blood (Auto) 80 Jacinto/uL 02/26/25 12:06 Urine Nitrite (Auto) Negative 02/26/25 12:06 Urine Bilirubin (Auto) 0 mg/dL 02/26/25 12:06 Urine Urobilinogen (Auto) 3.5 mg/dL 02/26/25 12:06 Leukocyte Esterase (Auto) 0 Edouard/uL 02/26/25 12:06 Assessment & Plan Assessment & Plan (1) Urinary frequency: Code(s): R35.0 - Frequency of micturition Category: Medical (2) Mixed stress and urge urinary incontinence: Code(s): N39.46 - Mixed incontinence Category: Medical (3) Microscopic hematuria: Code(s): R31.29 - Other microscopic hematuria Category: Medical Plan Plan 1. Microscopic Hematuria - Continue monitoring with annual follow-up unless symptoms worsen. - No further intervention required at this time as previous evaluations were normal. 2. Overactive Bladder - Continue Myrbetriq 50 mg daily, refill for 90 days. - Monitor for any new symptoms such as burning with urination or signs of urinary tract infection. Orders: Orders AMB Post Void Residual by ultrasound 02/26/25 N39.46 - Mixed incontinence AMB Urinalysis Automated 02/26/25 N39.46 - Mixed incontinence Patient Instructions: The patient had an opportunity to ask questions regarding treatment plan. The patient expressed understanding and agreement with the above treatment plan. The patient is aware they should contact our office by phone for worsening of their current condition or the appearance of new symptoms. Compliance is encouraged with any medications and followup testing that is ordered. It is a privilege to be allowed the opportunity to participate in the urologic care of your patient. If you have any questions or concerns regarding treatment for the above conditions please do not hesitate to contact me. The office telephone contact is [phone]. This note is constructed in part using voice recognition software. While every effort has been made to ensure accuracy legal biller errors may have been included. Yours sincerely, Agueda Mckeon MD Scribe Plan - Not visible on output: Patient was informed and verbally consented to the use of an ambient scribe for clinic note documentation during this visit. Coding Level of Care Code Est Pt Level 4 (83890) Diagnoses Urinary frequency R35.0 Mixed stress and urge urinary incontinence N39.46 Microscopic hematuria R31.29 CPT Codes Post Residual Void - PVR CPT Code: 51235-Kria Void Residual by ultrasound ([id number])
--- OUTSIDE RECORDS SUMMARY | 2025-02-26 11:29 | XMS_ITS | Clinical Summary ---
Author Organization [facility] Address [address] [place] [phone] Phone Care Team Providers Care Special Events Planner Name Role Phone Awilda Vilchis MD Primary [...] 2016 ZOSTER VACCINES (1 of 2) 2016 INFLUENZA VACCINE (#1) 2025 05/06/2018 COVID-19 VACCINE (3 - 2024-2 6 season) 2025 04/06/2021, 03/16/2021 Adult Td,Tdap Booster 04/23/2028 04/23/2018 [...] topic Medical Devices Not on file Insurance [facility] ACO ACO ACO ACO [facility] ACO [facility] ACO Advance Directives For more information, please contact: [phone] (9AM - 5PM [facility], Saturday-Saturday) * Full Code (Latest Code Status on File) Date Activated Date Inactivated Comments 02/27/2024 7:19 AM Question Answer Comments Code Status Confirmed With: Patient Care Teams Special Events Planner Relationship Specialty Start Date End Date Awilda Vilchis MD [facility] [address] [place] [id number] PCP - General Internal Medicine 10/15/23 Additional Source Comments The information contained in this document represents components of the legal health record. It is not the complete legal health record.[facility]
--- OUTSIDE RECORDS SUMMARY | 2025-02-26 11:29 | XMS_ITS | Clinical Summary ---
Author Organization [facility] Address [address] [place] [address] Phone Care Team Providers Care Senior Sharepoint Developer Name Role Phone Physician, No Pcp Primary Care Provider Unavaila ble Social History Tobacco Use Types Packs/Day Years Used Date Smoking Tobacco: Never Assessed Comments Unknown Sex and Gender Information Value Date Recorded Sex Assigned at Not on file Legal Sex Female 9:52 AM EST Gender Identity Not on file Sexual Orientation Not on file Plan of Treatment Upcoming Encounters Date Type Department Care Team ([facility] Contact Info) Description 03/04/2025 2:30 PM EDT Evaluation [facility] [address] [address] Viry Betts, [place] Health Maintenance Due Date Last Done Comments [...] 05/01/2022 Social Influencers of Health Screening 05/01/2022 Depression Screening 06/03/2024 COVID-19 Vaccine (1 - 2023-2 5 season) 2025 Influenza Vaccine (#1) 2025 HIB Vaccines Aged [...] on patient's age to complete this topic Insurance [facility] Care Teams Senior Sharepoint Developer Relationship Specialty Start Date End Date Physician, No Pcp PCP - General 02/03/25
--- OUTSIDE RECORDS SUMMARY | 2025-02-26 11:29 | XMS_ITS | Encounter Summary ---
Author Organization [facility] Address [address] [place] [phone] Phone Care Team Providers Care Kick Press Setter Name Role Phone Awilda Vilchis MD Primary Care Provider Encounter Details Date Type Department Care Team (Late st Contact Info) Description 02/27/2024 Procedure Pass [place] Admitting Dept - Virtual Department [address] [place] [id number] Social History Tobacco Use Types Packs/Day Years Used Date Smoking Tobacco: Never Smokeless Tobacco: Never Alcohol Use Standard Drinks/Week Comments Never 0 [...] on file Sexual Orientation Not on file documented as of this encounter Plan of Treatment Not on file documented as of this encounter Visit Diagnoses Not on filedocumented in this encounter Care Teams Kick Press Setter Relationship Specialty Start Date End Date Awilda Vilchis MD [facility] [place] [address] PCP - General Internal Medicine 10/15/23 documented as of this encounter Additional Source Comments The information contained in this document represents components of the legal health record. It is not the complete legal health record.[facility]
== END 2025-02-26 11:19 | disposition home or self-care (01) ==
LOC: HO.HUSH 10:14
PROVIDERS: PCP Internal Medicine; Visit Provider Urology
DX: R35.0 Frequency of micturition (principal); N39.46 Mixed incontinence; R31.29 Other microscopic hematuria
CPT/HCPCS: 99214

== ENCOUNTER → 2025-02-26 10:14 | Outpatient (BNVA) | payer OTHER, SELFPAY | PROVIDERS: PCP Internal Medicine; Visit Provider Urology | DX: R35.0 Frequency of micturition (principal); R31.29 Other microscopic hematuria; N39.46 Mixed incontinence | CPT/HCPCS: 51798; 81003; 99212 ==